=== PATIENT | female | born 1960 | race Caucasian/White ===

== ENCOUNTER → 2017-05-12 | Outpatient (REF) | payer BC | LOC: M LAB REF 13:18 | PROVIDERS: ATTEND Physician Assistant | DX: J02.9 Acute pharyngitis, unspecified (principal) ==

== ENCOUNTER → 2017-06-12 | Outpatient (CLI) | payer BC ==
[2017-06-12 13:01] LABS: BASO # 0.1 K/mm3 (0.0-0.2); BASO % 1.3 % (0.0-1.0); EOS # 0.2 K/mm3 (0.0-0.50); EOS % 2.3 % (0.0-3.0); LARGE UNSTAINED CELL # 0.2 K/mm3 (0.0-0.4); LARGE UNSTAINED CELL % 2.2 % (0.0-4.0); LYMPH # 2.8 K/mm3 (1.5-4.5); LYMPH % 34.7 % (24.0-44.0); MEAN CORPUSCULAR HEMOGLOBIN 31.5 pg (27.0-33.0); MEAN CORPUSCULAR HGB CONC 32.8 g/dl (32.0-36.5); MEAN CORPUSCULAR VOLUME 96.2 fl (80.0-96.0); MONO # 0.6 K/mm3 (0.0-0.8); MONO % 7.2 % (0.0-5.0); NEUTROPHILS % 52.2 % (36.0-66.0); PLATELET COUNT, AUTOMATED 446 k/mm3 (150-450); RED CELL DISTRIBUTION WIDTH 12.8 % (11.5-14.5); WHITE BLOOD COUNT 7.7 K/mm3 (4.0-10.0)
[2017-06-12 13:53] LABS: ALBUMIN 4.1 GM/DL (3.2-5.2); ALBUMIN/GLOBULIN RATIO 1.17 (1.00-1.93); ALKALINE PHOSPHATASE 44 U/L (45-117); ALT/SGPT 20 U/L (12-78); ANION GAP 11 MEQ/L (8-16); AST/SGOT 13 U/L (15-37); BILIRUBIN,TOTAL 0.3 MG/DL (0.2-1.0); BLOOD UREA NITROGEN 15 MG/DL (7-18); CALCIUM LEVEL 9.2 MG/DL (8.5-10.1); CARBON DIOXIDE LEVEL 24 MEQ/L (21-32); CHLORIDE LEVEL 108 MEQ/L (98-107); CHOLESTEROL LEVEL 273 MG/DL (<200); CREATININE FOR GFR 0.79 MG/DL (0.55-1.02); GLOMERULAR FILTRATION RATE > 60.0 (>51); GLUCOSE, FASTING 92 MG/DL (70-105); POTASSIUM SERUM 4.8 MEQ/L (3.5-5.1); SODIUM LEVEL 143 MEQ/L (136-145); TOTAL PROTEIN 7.6 GM/DL (6.4-8.2); TRIGLYCERIDES LEVEL 210 MG/DL (<150)
== END ==
LOC: M WUC 09:26
PROVIDERS: ATTEND Physician Assistant Medical
DX: Z13.0 Encounter for screening for diseases of the blood and blood-forming organs and certain disorders involving the immune mechanism (principal); Z13.29 Encounter for screening for other suspected endocrine disorder; Z13.220 Encounter for screening for lipoid disorders

== ENCOUNTER → 2017-07-23 | Outpatient (REF) | payer BC | LOC: M LAB REF 17:45 | PROVIDERS: ATTEND Family Medicine | DX: Z12.4 Encounter for screening for malignant neoplasm of cervix (principal) ==

== ENCOUNTER → 2017-09-01 | Outpatient (CLI) | payer BC ==
[2017-09-01 09:50] LABS: ALBUMIN 4.2 GM/DL (3.2-5.2); ALBUMIN/GLOBULIN RATIO 1.24 (1.00-1.93); ALKALINE PHOSPHATASE 48 U/L (45-117); ALT/SGPT 22 U/L (12-78); ANION GAP 9 MEQ/L (8-16); AST/SGOT 14 U/L (7-37); BILIRUBIN,TOTAL 0.3 MG/DL (0.2-1.0); BLOOD UREA NITROGEN 15 MG/DL (7-18); CALCIUM LEVEL 9.2 MG/DL (8.5-10.1); CARBON DIOXIDE LEVEL 28 MEQ/L (21-32); CHLORIDE LEVEL 104 MEQ/L (98-107); CHOLESTEROL LEVEL 230 MG/DL (<200); CREATININE FOR GFR 0.88 MG/DL (0.55-1.02); GLOMERULAR FILTRATION RATE > 60.0 (>51); GLUCOSE, FASTING 92 MG/DL (70-105); POTASSIUM SERUM 4.7 MEQ/L (3.5-5.1); SODIUM LEVEL 141 MEQ/L (136-145); TOTAL PROTEIN 7.6 GM/DL (6.4-8.2); TRIGLYCERIDES LEVEL 169 MG/DL (<150)
== END ==
LOC: M WUC 08:37
PROVIDERS: ATTEND Family Medicine
DX: E78.2 Mixed hyperlipidemia (principal)

== ENCOUNTER → 2017-11-11 | Outpatient (CLI) | payer BC | LOC: M ONCR 09:21 | DX: D05.11 Intraductal carcinoma in situ of right breast (principal) | CPT/HCPCS: G0463 ==

== ENCOUNTER 2017-11-19 13:56 | Outpatient (RCR) | payer BC | END 2017-12-03 | LOC: M ONCR 13:56 | DX: D05.11 Intraductal carcinoma in situ of right breast (principal) | CPT/HCPCS: 77300 ==

== ENCOUNTER → 2017-11-19 | Outpatient (CLI) | payer BC ==
[2017-11-19 14:55] LABS: HEMATOCRIT 40.8 % (36.0-47.0); HEMOGLOBIN 13.5 g/dl (12.0-16.0); MEAN CORPUSCULAR HGB CONC 33.1 g/dl (32.0-36.5); MEAN CORPUSCULAR VOLUME 93.8 fl (80.0-96.0); PLATELET COUNT, AUTOMATED 457 10^3/uL (150-450); RED BLOOD COUNT 4.35 10^6/uL (4.00-5.40); RED CELL DISTRIBUTION WIDTH 12.7 % (11.5-14.5); WHITE BLOOD COUNT 7.3 10^3/uL (4.0-10.0)
== END ==
LOC: M RAD 13:42
DX: C50.919 Malignant neoplasm of unspecified site of unspecified female breast (principal)
CPT/HCPCS: 85027

== ENCOUNTER → 2017-11-26 | Outpatient (CLI) | payer BC | LOC: M WHC 09:20 | DX: Z13.820 Encounter for screening for osteoporosis (principal); Z79.811 Long term (current) use of aromatase inhibitors; Z85.3 Personal history of malignant neoplasm of breast; M85.80 Other specified disorders of bone density and structure, unspecified site ==

== ENCOUNTER 2017-12-04 11:26 | Outpatient (RCR) | payer BC | END 2018-01-03 | LOC: M ONCR 11:26 | DX: D05.11 Intraductal carcinoma in situ of right breast (principal) | CPT/HCPCS: 77300 ==

== ENCOUNTER 2018-01-05 10:05 | Outpatient (RCR) | payer BC | END 2018-02-02 | LOC: M ONCR 10:05 | DX: D05.11 Intraductal carcinoma in situ of right breast (principal) | CPT/HCPCS: 77336 ==

== ENCOUNTER → 2018-01-24 | Outpatient (CLI) | payer BC ==
[2018-01-24 18:16] LABS: ALBUMIN 4.2 GM/DL (3.2-5.2); ALBUMIN/GLOBULIN RATIO 1.27 (1.00-1.93); ALKALINE PHOSPHATASE 46 U/L (45-117); ALT/SGPT 16 U/L (12-78); ANION GAP 9 MEQ/L (8-16); AST/SGOT 14 U/L (7-37); BILIRUBIN,TOTAL 0.3 MG/DL (0.2-1.0); BLOOD UREA NITROGEN 15 MG/DL (7-18); CARBON DIOXIDE LEVEL 26 MEQ/L (21-32); CHLORIDE LEVEL 108 MEQ/L (98-107); CHOLESTEROL LEVEL 234 MG/DL (<200); CHOLESTEROL RISK RATIO 4.254 (<5); CREATININE FOR GFR 0.87 MG/DL (0.55-1.30); GLOMERULAR FILTRATION RATE > 60.0 (>51); GLUCOSE, FASTING 85 MG/DL (70-100); HDL CHOLESTEROL 55 MG/DL (>40); LDL CHOLESTEROL 140.6 MG/DL (<100); NON-HDL-C 179 MG/DL; POTASSIUM SERUM 4.2 MEQ/L (3.5-5.1); SODIUM LEVEL 143 MEQ/L (136-145); TOTAL PROTEIN 7.5 GM/DL (6.4-8.2); TRIGLYCERIDES LEVEL 192 MG/DL (<150)
== END ==
LOC: M ADAMS 10:36
DX: E78.2 Mixed hyperlipidemia (principal); C50.919 Malignant neoplasm of unspecified site of unspecified female breast
CPT/HCPCS: 80053

== ENCOUNTER → 2018-02-18 | Outpatient (CLI) | payer BC | LOC: M ONCR 14:51 | DX: Z08 Encounter for follow-up examination after completed treatment for malignant neoplasm (principal); Z85.3 Personal history of malignant neoplasm of breast; Z92.3 Personal history of irradiation | CPT/HCPCS: G0463 ==

== ENCOUNTER → 2018-05-07 | Outpatient (CLI) | payer BC ==
[2018-05-07 12:15] LABS: ALBUMIN/GLOBULIN RATIO 1.18 (1.00-1.93); ALKALINE PHOSPHATASE 41 U/L (45-117); ALT/SGPT 24 U/L (12-78); ANION GAP 10 MEQ/L (8-16); AST/SGOT 20 U/L (7-37); BILIRUBIN,TOTAL 0.3 MG/DL (0.2-1.0); BLOOD UREA NITROGEN 15 MG/DL (7-18); CALCIUM LEVEL 9.2 MG/DL (8.5-10.1); CARBON DIOXIDE LEVEL 26 MEQ/L (21-32); CHLORIDE LEVEL 107 MEQ/L (98-107); CHOLESTEROL LEVEL 184 MG/DL (<200); CHOLESTEROL RISK RATIO 3.228 (<5); CREATININE FOR GFR 0.87 MG/DL (0.55-1.30); GLOMERULAR FILTRATION RATE > 60.0 (>51); GLUCOSE, FASTING 92 MG/DL (70-100); HDL CHOLESTEROL 57 MG/DL (>40); LDL CHOLESTEROL 98.4 MG/DL (<100); NON-HDL-C 127 MG/DL; POTASSIUM SERUM 4.9 MEQ/L (3.5-5.1); SODIUM LEVEL 143 MEQ/L (136-145); TOTAL PROTEIN 7.4 GM/DL (6.4-8.2); TRIGLYCERIDES LEVEL 143 MG/DL (<150)
== END ==
LOC: M WUC 08:20
DX: E78.2 Mixed hyperlipidemia (principal)
CPT/HCPCS: 80053

== ENCOUNTER → 2018-08-06 | Outpatient (CLI) | payer BC ==
[2018-08-06 11:01] LABS: BASO # 0.1 10^3/uL (0.0-0.2); BASO % 1.3 % (0.0-1.0); EOS # 0.2 10^3/uL (0.0-0.50); EOS % 1.9 % (0.0-3.0); HEMATOCRIT 38.8 % (36.0-47.0); HEMOGLOBIN 12.4 g/dl (12.0-15.5); IMMATURE GRANULOCYTE % 0.3 % (0-3.0); LYMPH # 1.9 10^3/uL (1.5-4.5); LYMPH % 21.7 % (24.0-44.0); MEAN CORPUSCULAR HEMOGLOBIN 31.2 pg (27.0-33.0); MEAN CORPUSCULAR VOLUME 97.7 fl (80.0-96.0); MONO # 0.7 10^3/uL (0.0-0.8); MONO % 8.5 % (0.0-5.0); NEUTROPHILS # 5.7 10^3/uL (1.8-7.7); NEUTROPHILS % 66.3 % (36.0-66.0); PLATELET COUNT, AUTOMATED 453 10^3/uL (150-450); RED BLOOD COUNT 3.97 10^6/uL (4.00-5.40); WHITE BLOOD COUNT 8.6 10^3/uL (4.0-10.0)
[2018-08-06 11:19] LABS: ALBUMIN 4.2 GM/DL (3.2-5.2); ALBUMIN/GLOBULIN RATIO 1.27 (1.00-1.93); ALKALINE PHOSPHATASE 42 U/L (45-117); ALT/SGPT 25 U/L (12-78); ANION GAP 5 MEQ/L (8-16); AST/SGOT 14 U/L (7-37); BILIRUBIN,TOTAL 0.3 MG/DL (0.2-1.0); BLOOD UREA NITROGEN 15 MG/DL (7-18); CARBON DIOXIDE LEVEL 29 MEQ/L (21-32); CHLORIDE LEVEL 107 MEQ/L (98-107); CHOLESTEROL LEVEL 188 MG/DL (<200); CHOLESTEROL RISK RATIO 2.937 (<5); CREATININE FOR GFR 0.71 MG/DL (0.55-1.30); FREE T4 0.88 NG/DL (0.76-1.46); GLOMERULAR FILTRATION RATE > 60.0 (>51); GLUCOSE, FASTING 98 MG/DL (70-100); HDL CHOLESTEROL 64 MG/DL (>40); LDL CHOLESTEROL 101 MG/DL (<100); NON-HDL-C 124 MG/DL; POTASSIUM SERUM 4.7 MEQ/L (3.5-5.1); SODIUM LEVEL 141 MEQ/L (136-145); TOTAL PROTEIN 7.5 GM/DL (6.4-8.2); TRIGLYCERIDES LEVEL 115 MG/DL (<150)
== END ==
LOC: M WUC 08:27
DX: E78.2 Mixed hyperlipidemia (principal); Z13.29 Encounter for screening for other suspected endocrine disorder; Z13.0 Encounter for screening for diseases of the blood and blood-forming organs and certain disorders involving the immune mechanism
CPT/HCPCS: 84443

== ENCOUNTER → 2018-08-19 | Outpatient (CLI) | payer BC | LOC: M ONCR 14:20 | DX: Z85.3 Personal history of malignant neoplasm of breast (principal) | CPT/HCPCS: G0463 ==

== ENCOUNTER → 2018-10-26 | Outpatient (REF) | payer BC ==
[~2018-10-26] MED LIST: SILV40CR EXT
== END ==
LOC: M LAB REF 10:36
PROVIDERS: ATTEND Physician Assistant
DX: J02.9 Acute pharyngitis, unspecified (principal)

== ENCOUNTER → 2019-11-19 | Outpatient (CLI) | payer BC ==
--- NOTE | 2019-11-23 13:28 | DEXA ---
AP SPINE L1 - L4 0.993 -1.6 -0.4 LT FEMUR TOTAL 0.852 -1.2 -0.3 LT NECK 0.772 -1.9 -0.7 RT FEMUR TOTAL 0.849 -1.3 -0.3 RT NECK 0.770 -1.9 -0.7 TOTAL BODY TOTAL OTHER COMMENTS: There is low bone density of the spine and hips. The density of the spine is increased 3.5% since 11/26/2017. The density of the left hip has decreased 3.8% since 11/26/2017. The density of the right hip has decreased 4.6% since 11/26/2017. FOLLOW-UP: Recommendation for the next bone density exam: 2 years. MARIBELL
== END ==
LOC: M WHC 08:50
PROVIDERS: ATTEND Internal Medicine
DX: C50.411 Malignant neoplasm of upper-outer quadrant of right female breast (principal); M85.80 Other specified disorders of bone density and structure, unspecified site

== ENCOUNTER → 2019-12-20 | Outpatient (REF) | payer BC | LOC: M LAB REF 12:35 | PROVIDERS: ATTEND Physician Assistant | DX: N39.0 Urinary tract infection, site not specified (principal) ==

== ENCOUNTER → 2020-01-11 | Outpatient (REF) | payer BC | LOC: M LAB REF 16:48 | PROVIDERS: ATTEND Family Medicine | DX: N39.0 Urinary tract infection, site not specified (principal) ==

== ENCOUNTER → 2020-03-14 | Outpatient (REF) | payer BC ==
[2020-03-14 16:46] LABS: AMORPHOUS SEDIMENT SMALL (NEGATIVE); APPEARANCE, URINE CLOUDY (CLEAR); BACTERIA, URINE AUTO 1+ (NEGATIVE); BILIRUBIN, URINE AUTO NEGATIVE (NEGATIVE); BLOOD, URINE BLOOD 2+ (NEGATIVE); COLOR, URINE YELLOW (YELLOW); GLUCOSE, URINE (UA) AUTO NEGATIVE (NEGATIVE); KETONE, URINE AUTO NEGATIVE (NEGATIVE); LEUKOCYTE ESTERASE, URINE AUTO 2+ (NEGATIVE); MUCUS, URINE SMALL (NEGATIVE); NITRITE, URINE AUTO NEGATIVE (NEGATIVE); PROTEIN, URINE AUTO 2+ mg/dL (NEGATIVE); RBC, URINE AUTO 72 /HPF (0-3); SPECIFIC GRAVITY URINE AUTO 1.015 (1.002-1.035); SQUAMOUS EPITHELIAL CELL UR AU 1 /HPF (0-6); UROBILINOGEN, URINE AUTO 0.2 mg/dL (0.0-2.0); WBC, URINE AUTO TNTC /HPF (0-3)
== END ==
LOC: M LAB REF 15:48
PROVIDERS: ATTEND Obstetrics & Gynecology
DX: D39.0 Neoplasm of uncertain behavior of uterus (principal)

== ENCOUNTER → 2020-03-27 | Outpatient (CLI) | payer BC ==
[~2020-03-27] MED LIST changes: +ANAS1TAB2 PO; +CALC1TAB29 PO; +MULTCAP PO; +ONDA8TAB10 PO; +PRAV40TA2 PO; +PROC10TA4 PO; +ZOFR8TAB24 PO
== END ==
LOC: M LABSMTC 11:38
PROVIDERS: ATTEND Anesthesiology
DX: Z03.818 Encounter for observation for suspected exposure to other biological agents ruled out (principal); Z11.59 Encounter for screening for other viral diseases
CPT/HCPCS: C9803; U0003

== ENCOUNTER 2020-03-30 14:27 | Day surgery (SDC) | payer BC ==
[~2020-03-30] VITALS: Ht 154.9 cm; Wt 65.3 kg
[~2020-03-30 14:27] MED LIST changes: +LIDOCAINE 2% 100MG/5ML SDV (FOR ANES.) As Ordered ONE; +LR 1,000 ML IV ONE; +MIDAZOLAM INJ 2MG/2ML VIAL (J2250 PER 1MG) As Ordered ONE; -ONDA8TAB10 PO; -PROC10TA4 PO; -ZOFR8TAB24 PO; +fentaNYL 100 MCG/2 ML INJECTION (J3010) As Ordered ONE; +propofoL 200 MG/20 ML VIAL As Ordered ONE
[2020-03-30 15:16] LABS: HEMATOCRIT 35.7 % (36.0-47.0); HEMOGLOBIN 11.7 g/dl (12.0-15.5); MEAN CORPUSCULAR HEMOGLOBIN 30.8 pg (27.0-33.0); MEAN CORPUSCULAR HGB CONC 32.8 g/dl (32.0-36.5); MEAN CORPUSCULAR VOLUME 93.9 fl (80.0-96.0); PLATELET COUNT, AUTOMATED 565 10^3/uL (150-450); WHITE BLOOD COUNT 21.5 10^3/uL (4.0-10.0)
[2020-03-30] MEDS ORDERED: CHLOROPROCAINE PRES. FREE 3% 20ML VIAL As Ordered ONE (15:19)
[2020-03-30 15:35] LABS: CALCIUM LEVEL 9.5 MG/DL (8.8-10.2); CREATININE FOR GFR 1.23 MG/DL (0.55-1.30); GLOMERULAR FILTRATION RATE 47.3 (>45); POTASSIUM SERUM 4.2 MEQ/L (3.5-5.1)
[2020-03-30] MEDS ORDERED: PHENYLephrine HCL 500 MCG/5 ML (100MCG/ML) SYRINGE (J2370) As Ordered ONE (16:58)
[2020-03-30] MEDS ORDERED: ONDANSETRON 4MG/2ML VIAL As Ordered ONE (16:58)
[2020-03-30] MEDS ORDERED: dexameTHASONE 4 MG/ML 1ML VIAL (J1100 PER 1MG) As Ordered ONE (16:59)
[2020-03-30] MEDS ORDERED: KETOROLAC 60MG 2ML VIAL As Ordered ONE (16:59)
[2020-03-30] MEDS ORDERED: METOCLOPRAMIDE INJ 10MG/2ML VIAL (J2765 PER 1) IV PRN (18:00)
[2020-03-30] MEDS ORDERED: MEPERIDINE INJ 25 MG/ML VIAL (J2175) IV PRN (18:00)
[2020-03-30] MEDS ORDERED: PERCOCET 5MG/325MG TAB PO PRN (18:00)
[2020-03-30] MEDS ORDERED: ONDANSETRON 4MG/2ML VIAL IV PRN (18:00)
[2020-03-30] MEDS ORDERED: fentaNYL 100 MCG/2 ML INJECTION (J3010) IV PRN (18:00)
[2020-03-30] MEDS ORDERED: LR 1,000 ML IV SCH ×2 (18:00)
[2020-03-30 18:32] VITALS: BP 154/67
--- NOTE | 2020-03-31 17:19 | ECGEPIP ---
[facility] Test Date: 2020-03-30 Pat Name: CAROL BUNCH Department: Room: - Gender: Female Test Preparer: CARMELA : 1960 Requested By: JHONNY Abbasi Order Number: [id number] Reading MD: Lizandro Cabrera Measurements Intervals [place] Rate: 80 P: 38 ME: 120 QRS: 20 QRSD: 93 T: 39 QT: 379 QTc: 438 Interpretive Statements SINUS RHYTHM No prior tracing in the system Electronically Signed on 03-31-2020 17:19:35 EDT by Lizandro Cabrera
--- NOTE | 2020-04-04 22:08 | RO ---
DATE OF PROCEDURE: 03/30/2020 PREOPERATIVE DIAGNOSIS: Postmenopausal bleeding with abnormal ultrasound of the endometrium, as well as abnormal sono of the bladder, as well as palpable pelvic mass. POSTOPERATIVE DIAGNOSIS: Postmenopausal bleeding with abnormal ultrasound of the endometrium, as well as abnormal sono of the bladder, as well as palpable pelvic mass. The patient has a bladder tumor. She also had an endometrial polyp, which was completely resected and sent for pathology, but certainly not the most concerning finding today. PROCEDURE: Dilation and curettage (D and C), hysteroscopy, MyoSure resection of polyp and cystourethroscopy with biopsy of fungating lesion of the partha-trigone. I could not see the trigone well because of the obstructive large bladder neck tumor. SURGEON: Dr. Donna Garcia WEATHERIZATION DIRECTOR: ANESTHESIA: General endotracheal anesthesia. SPECIMENS: The endometrial polyp and the endometrial resection with biopsy of the bladder lesion as well. DESCRIPTION OF PROCEDURE: Ashley was brought to the operating room where sufficient general endotracheal anesthesia was induced, and she was prepped, draped and positioned in the usual sterile fashion. She has a palpable pelvic mass as already noted in the office notes. Under anesthesia, the anterior bladder wall does feel slightly mobile separate from it, so does not feel quite as close, but it is still quite close and very readily palpable and feels separate from the uterus as was already noted in the office. The cervix was grasped with a single-tooth tenaculum, carefully dilated. The hysteroscope placed and a right posterior fundal polypoid lesion was noted. This was resected with MyoSure and some endometrial sampling done, but she really does not have overgrowth of the endometrium, just that lesion. She has normal tubal ostia, normal contour, and after curettage, the hysteroscopic portion of the procedure was ended. And, of course, the resected tissue will be sent for pathologic evaluation and was, of course, sent separate from the bladder sample. After completing the hysteroscopic portion of the procedure, we set up for the cystoscopy, placed the cystoscope and with the 70-degree, could see a bladder neck tumor sort of eliminating decent visualization of the trigone region, as the fungating tumor there did not appear overly vascular and definitely appeared friable, so we were able to just use the biopsy forceps to simply grasp samples. I certainly did not want to do any undue damage to the trigone, and it is really distorting as a lesion, but I did want enough for diagnosis, so we took several samples. We did not have any trouble with particular bleeding. The first few did appear a little necrotic, so we kept getting some more sample until we felt we had enough for diagnostic purposes and then we ended the procedure. Again, I could not really see normal anatomy of the trigone because she has this distorting abnormal tumor, but the pathology will be sent. She will be referred over to urology. The procedure was then ended. The bladder emptied. Estimated blood loss was only about 3 mL. Fluid replacement was crystalloid. Complications: None. Condition and Disposition: Ashley tolerated the procedure well and was recovering in the recovery room in good condition.
== END 2020-03-30 19:00 | disposition home or self-care (01) ==
LOC: M SDC 14:27
PROVIDERS: ATTEND Obstetrics & Gynecology
DX: C67.0 Malignant neoplasm of trigone of bladder (principal); R19.00 Intra-abdominal and pelvic swelling, mass and lump, unspecified site; N84.0 Polyp of corpus uteri; C50.919 Malignant neoplasm of unspecified site of unspecified female breast; Z79.899 Other long term (current) drug therapy
CPT/HCPCS: 36415; 52204; 58558; 80048; 85027; 88305; 93005; J1100; J1885; J2250; J2370; J2405; J3010

== ENCOUNTER → 2020-06-23 | Outpatient (CLI) | payer BC ==
[~2020-06-23] MED LIST changes: -LIDOCAINE 2% 100MG/5ML SDV (FOR ANES.) As Ordered ONE; -LR 1,000 ML IV ONE; -MIDAZOLAM INJ 2MG/2ML VIAL (J2250 PER 1MG) As Ordered ONE; +ONDA8TAB10 PO; +PROC10TA4 PO; +ZOFR8TAB24 PO; -fentaNYL 100 MCG/2 ML INJECTION (J3010) As Ordered ONE; -propofoL 200 MG/20 ML VIAL As Ordered ONE
--- NOTE | 2020-07-05 09:08 | MEDONCTEEN ---
Date/Time of Encounter Date of Encounter: Jul 05, 2020 Time of Encounter: 08:00 Telephone Encounter Briefly patient has T4N3M1 urothelial cancer, managed initially at [facility] and [facility] in [place] (Drs. Crain, and Loyda, respectively). She was referred to see me for consideration of chemoradiation after having been deemed inoperable due to extent of abdominal adenopathy. Dr. Ryan saw her while I was away and astutely ordered a PET-CT to complete staging, which had not been done in [place]. This study from 07/03/20 at [facility] shows a Virchow's node (L suprac lavicular) which is avid. This makes her M1. Thankfully there are no visceral or bony metastatic lesions that I can see. I cannot safely encompass all sites of disease and treat to a definitive RT dose. Thus, I think she would be best served by systemic therapy upfront reserving radiation for consolidation or palliation contingent upon response. I communicated all of this to the patient. She would like to transfer her medical oncology follow up here as well and so I have referred her. She currently has no symptoms attributable to this cancer, and is urinating well without hematuria or pain. She expressed great frustration with the delays in her care. She is also transferring urologic care to Dr. Carrera of [facility] who will see her at [facility] when he is there. I explained that I do not need to schedule formal follow up with her now, but that I would be interested in seeing her back after systemic therapy of some duration and restaging scans to evaluate whether there is a role for consolidative RT. I will leave this to medical oncology to decide. Certainly if she develops symptoms attributable to the tumor in the bladder palliative RT would be an immediate and helpful option. Plan: Refer to medical oncology at [facility] Cody MD Jul 05, 2020 09:08
--- NOTE | 2020-07-07 11:17 | RADONC ---
DATE OF SERVICE: 06/23/2020 DIAGNOSIS: Bladder cancer. Stage (in progress). At least Stage CANDIDO, N4a, N3, M1a. ECOG Performance Status: 0. CONSULTATION NOTE: Ms. 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 She did well postoperatively but more recently was thought to have a urinary tract infection. She was seen by her primary care physician, Dr. Remy who subsequently referred her to her [facility] physician, Dr. Kiley Garcia. On [facility] examination Dr. Garcia found a mass which she believed was center over her urinary bladder. The patient was subsequently referred to [facility] and was seen by Dr. Jong Crain. A CT of the abdomen and pelvis was undertaken on 04/27/20 and revealed a 47 mm x 27 mm mass arising from the left posterior lateral aspect of the bladder completing obstructing the left UVJ. There was not a clear plane of fat between the bladder mass and the uterus posterior to it. It was thought to be direct invasion. There was also noted to be moderate retroperitoneal lymphadenopathy with multiple enlarged paraortic lymph nodes as well as left common iliac lymph nodes. A 14 mm left periaortic lymph node was noted. There was a distal left periaortic node as well. On 05/02/20, the patient underwent cystoscopy and transurethral resection of her bladder mass. Pathology revealed invasive high-grade urothelial carcinoma with marked necrosis. There was muscle invasion noted. There was also invasive high- grade urothelial carcinoma involving the left ureteral orifice. The patient was referred to us for further workup as well as initiation of external beam radiation therapy with IMRT/IGRT in order to achieve local control. Coordination with Medical Oncology will be undertaken. PAST MEDICAL HISTORY: Patients past medical history is positive for her right sided breast cancer as noted above. In addition, the patient has a history of hyperlipidemia. ALLERGIES: The patient has no known drug allergies. FAMILY HISTORY: The patients family history is positive for a mother with cervical cancer. SOCIAL HISTORY: The patient has smoked one pack of cigarettes per week. She smoked for approximately 40 years. She does not use abuse alcohol. REVIEW OF SYSTEMS: The patients review of systems is largely noncontributory except for some urinary discomfort. She denies nausea, vomiting, fevers, chills, night sweats, diplopia, headaches, anxiety, depression, anorexia, weight loss, visual disturbance, chest pain, urinary or bowel, bone pain, or neurological problems. PHYSICAL EXAMINATION: GENERAL: The patient is a well-developed, well-nourished white female in no acute distress. HEENT: Normocephalic, atraumatic. Extraocular movements are intact. LYMPH: There is no palpable cervical, supraclavicular, infraclavicular, axillary or inguinal lymphadenopathy present. LUNGS: Clear to auscultation and percussion. HEART: Regular rate and rhythm. ABDOMEN: Benign with no hepatosplenomegaly, masses or tenderness. SKELETAL: No tenderness to pressure or percussion of the bony skeleton. ASSESSMENT: I have ordered a PET CT scan for further staging of this patient. At this time, I do not have the actual images from her CT scans done at [facility] and I have put in an order to obtain a copy of those scans so I can better evaluate the extent of her disease. Clearly, if the lymph nodes are involved above the level of the common iliacs, then this would be a Stage CANDIDO disease. Irregardless, the goal should be to obtain local control in this patient. If indeed the disease is limited to below the common iliacs, then the treatment of course is potentially curable. I am in agreement with her previous radiation oncologist and have discussed this case with her future treating radiation oncologist, Dr. Antony Ardon. I agree that IMRT radiation will be necessary in order to limit the amount of radiation to her small bowel. I have discussed with the patient in detail the potential benefits as well as possible acute and chronic sequelae of external beam radiation therapy. We discussed logistics of treatment planning, simulation and subsequent fractionated daily radiation treatments. Once again, I have scheduled the patient for a PET CT scan for final staging and we are scheduling her for CT simulation as well. I will of course defer the further details of her treatment plans to her treating physician, Dr. Ardon when he returns next week. [facility]
== END ==
LOC: M ONCR 08:59
PROVIDERS: ATTEND Radiology Radiation Oncology
DX: C67.9 Malignant neoplasm of bladder, unspecified (principal); Z92.3 Personal history of irradiation

== ENCOUNTER → 2020-07-03 | Outpatient (CLI) | payer BC ==
--- NOTE | 2020-07-12 13:28 | REP ---
PET CT HISTORY: Staging urothelial carcinoma. COMPARISON: CT study abdomen and pelvis 04/27/2020. There is also a history of breast carcinoma on the right 2018. TECHNIQUE: 49 minutes following the intravenous injection of an 8.21 mCi dose of F18 fluorodeoxyglucose, three-dimensional PET CT imaging is obtained from the skull base to the proximal thighs. PET CT FINDINGS: There is a hypermetabolic left supraclavicular lymph node measuring 14 x 11 mm at the level of the left thyroid lobe. Maximum standard uptake value is quite high measuring 22.51. There is no mediastinal or hilar hypermetabolic uptake in the chest. No abnormal pulmonary parenchymal hypermetabolic uptake is seen. No pulmonary nodule is appreciated. Head and neck soft tissues are otherwise unremarkable. No abnormal hypermetabolic uptake is seen in the liver or spleen. Hydronephrosis is again seen in the left kidney. There is a cortical cyst in the left kidney. There is hypermetabolic retroperitoneal adenopathy. There is a retrocrural lymph node with mildly hypermetabolic uptake, maximum standard uptake value 5.45. This is on the right side and is less than 1 cm in diameter. There is some slight motion generated misregistration. The upper abdominal predominantly left periaortic hypermetabolic adenopathy includes multiple lymph nodes. Maximum standard uptake value ranges to 11.3. There are one or two small left internal iliac lymph nodes, which are hypermetabolic as well, maximum standard uptake value up to 6.8. There is one internal iliac node on the left with a maximum standard uptake value of 22.2. No right pelvic adenopathy is appreciated. No inguinal or obturator adenopathy is see. The left posterior wall bladder mass cannot be evaluated accurately due to physiologic uptake in the urinary bladder. No abnormal skeletal uptake is seen. IMPRESSION: Hypermetabolic shin uptake is seen in a left supraclavicular lymph node, as well as in right retrocrural, left and right periaortic, and left internal iliac shin distributions. No other abnormal hypermetabolic uptake. There is no abnormal axillary or internal mammary shin uptake. MTDD
== END ==
LOC: M PLARAD 15:21
PROVIDERS: ATTEND Radiology Radiation Oncology
DX: C67.6 Malignant neoplasm of ureteric orifice (principal)
CPT/HCPCS: 78815; A9552

== ENCOUNTER → 2020-08-22 | Outpatient (CLI) | payer BC ==
[~2020-08-22] MED LIST changes: +LIDOCAINE 1% MDV 20ML VIAL As Ordered ONE; +SODIUM BICARBONATE 8.4% INJ 50MEQ 50 ML VIAL As Ordered ONE
[2020-08-22 12:10] VITALS: BP 142/71
--- NOTE | 2020-08-23 10:04 | REP ---
INDICATION: LYMPH NODE BX LEFT SUPRACLAVICULAR. COMPARISON: PET-CT 07/03/2020. TECHNIQUE: Real-time sonographic evaluation of left supraclavicular region performed. FINDINGS: The suspicious lymph node seen in the left supraclavicular region on the prior PET-CT exam could not be visualized sonographically. IMPRESSION: Ultrasound-guided biopsy of the left supraclavicular lymph node could not be performed as the lymph node is not visible by ultrasound. The biopsy will need to be performed with CT guidance. <Electronically signed by Jules Harper > 08/23/20 [id number]
== END ==
LOC: M IRPRO 11:56
PROVIDERS: ATTEND Internal Medicine Medical Oncology
DX: R59.0 Localized enlarged lymph nodes (principal); C34.90 Malignant neoplasm of unspecified part of unspecified bronchus or lung; Z53.8 Procedure and treatment not carried out for other reasons

== ENCOUNTER → 2020-08-29 | Outpatient (CLI) | payer BC ==
[~2020-08-29] MED LIST changes: +AMOX875T PO
[2020-08-29 13:32] VITALS: BP 126/62
--- NOTE | 2020-08-29 18:28 | REP ---
INDICATION: LT SUPRACLAVICULAR LYMPHNODE BX. COMPARISON: None. TECHNIQUE: The procedure is performed by Norma Heredia [facility], under the direct supervision of Dr. Harper. The risks and benefits of the procedure were explained to the patient and informed consent was obtained both orally and written. Directly prior to the start of the procedure, a formal timeout was done in the exam room. The left sided supraclavicular lymph node was localized using CT guidance. Skin was prepped and draped in the usual sterile fashion. Four ml of buffered lidocaine was used as a local anesthetic. FINDINGS: Using CT guidance a 19/20 gauge coaxial needle biopsy system was inserted and advanced into the lymph node. Eight core biopsy samples were obtained. Four specimens were sent to our lab here, and the remaining 4 were sent out in RPMI solution, for further testing. CT images obtained directly after the biopsy show no evidence of pneumothorax, or hematoma. After the appropriate amount of monitored convalescence the patient was discharged from the department. IMPRESSION: CT guided supraclavicular lymph node biopsy. <Electronically signed by Norma Heredia > 08/29/20 [id number] <Electronically signed by Jules Harper > 08/29/20 [id number]
== END ==
LOC: M IRPRO 11:59
PROVIDERS: ATTEND Internal Medicine Medical Oncology
DX: D05.11 Intraductal carcinoma in situ of right breast (principal); C00-D49 Neoplasms

== ENCOUNTER → 2020-09-12 | Outpatient (CLI) | payer BC ==
[~2020-09-12] MED LIST changes: +GASTROGRAFIN SOLUTION 30ML (Q9963) As Ordered ONE; -LIDOCAINE 1% MDV 20ML VIAL As Ordered ONE; -SODIUM BICARBONATE 8.4% INJ 50MEQ 50 ML VIAL As Ordered ONE; +VITMTA PO
--- NOTE | 2020-09-12 17:21 | REP ---
INDICATION: BLADDER CA. COMPARISON: Comparison is made with recent PET-CT study from July 03, 2020.. There is also a comparison chest CT study from radiation therapy planning study November 19, 2017. TECHNIQUE: Helical scanning is acquired 3 mm axial images are generated. Coronal and sagittal MPR images are generated and reviewed. FINDINGS: No pulmonary nodule or infiltrate is seen. No lung mass lesion is observed. There is minimal linear fibrosis in the right middle lobe and lingula at the bases. No pleural or pericardial effusion is seen. The small 14 mm left supraclavicular lymph node at the lateral aspect of the left thyroid gland has decreased in size and is 6 mm in greatest diameter. No supraclavicular adenopathy is visible today. No axillary adenopathy or mediastinal adenopathy is seen. No bony destructive lesion. Some vascular calcification is observed. IMPRESSION: The left supraclavicular lymph node which was observed to be hypermetabolic on July 03, 2020 PET/CT appears to have decreased in size to 6 mm. No other suspicious abnormality is seen on chest CT. <Electronically signed by Arnold Mora > 09/12/20 [id number]
--- NOTE | 2020-09-12 17:28 | REP ---
INDICATION: BLADDER CA COMPARISON: Comparison is made with imaging from PET-CT study dated July 03, [address] abdomen and pelvis images from April 27, 2020.. TECHNIQUE: Helical scanning is acquired in 4 mm axial images were reformatted. Coronal and sagittal MPR images were generated and reviewed. FINDINGS: There are multiple small hepatic cysts again noted scattered in the liver. The largest of these is in the left lobe measuring 18 mm in diameter. These are unchanged from comparison CT study April 27, 2020. No abnormality is noted in the gallbladder or pancreas. Spleen is unremarkable. Normal adrenal glands are seen. The previously noted left-sided hydronephrosis has resolved. There is a cyst in lower pole left kidney posteriorly which is unchanged. There is no evidence of retrocrural lymphadenopathy today. The previously noted left periaortic and right aortocaval lymph nodes appear a little less prominent in size. The largest of these is a left periaortic node measuring 6.6 mm in short axis dimension, previously 10 mm. No new adenopathy is appreciated. A 2nd left periaortic lymph node has decreased from 10-4 mm in short axis dimension. Similar improvement in left iliac lymph nodes is seen. These are somewhat difficult to evaluate in the absence of intravenous contrast. No new adenopathy is appreciated. No free fluid is noted. Uterus is tipped posteriorly into the left as before. Small and large intestinal bowel loops are unremarkable. Bone window settings show no bony destructive lesion. IMPRESSION: Improvement noted in the retroperitoneal and left iliac lymphadenopathy seen on the prior PET-CT. Previously noted left-sided hydronephrosis has resolved. <Electronically signed by Arnold Mora > 09/12/20 [id number]
== END ==
LOC: M RAD 12:05
PROVIDERS: ATTEND Internal Medicine Medical Oncology
DX: C67.9 Malignant neoplasm of bladder, unspecified (principal); J84.10 Pulmonary fibrosis, unspecified
CPT/HCPCS: 71250; 74176; Q9963

== ENCOUNTER → 2020-10-09 | Outpatient (CLI) | payer BC ==
[~2020-10-09] MED LIST changes: -GASTROGRAFIN SOLUTION 30ML (Q9963) As Ordered ONE; +LIDOCAINE 1% MDV 20ML VIAL As Ordered ONE; +MIDAZOLAM INJ 2MG/2ML VIAL (J2250 PER 1MG) As Ordered ONE; +POTA540T PO; +ceFAZolin 1GM VIAL (J0690 PER 500MG) As Ordered ONE; +diphenhydrAMINE 50MG/ML VIAL (J1200) As Ordered ONE; +fentaNYL 100 MCG/2 ML INJECTION (J3010) As Ordered ONE
[2020-10-09 17:51] VITALS: BP 156/66
--- NOTE | 2020-10-11 13:46 | IRHP ---
[facility] IR Pre-Procedure H & P General Date of Service: Oct 09, 2020 Procedure: Same Day Surgery Interval History and Physical I have seen the patient and reviewed last H & P performed within 30 days. There is no significant interval change. History of Present Illness Chief Complaint The patient is a 60-year-old female admitted with a reason for visit of Bladder Ca. PRE-PROCEDURE DIAGNOSIS:bladder ca HEART: normal rate. LUNGS: normal breathing at rest. ASA Classification ASA Classification: III-Severe systemic dis. Mallampati Score: II NPO: Yes Problems with prior sedation: No Obstructive Sleep Apnea: No Plan moderate sedation Allergies Coded Allergies: No Known Allergies (Unverified , 03/28/20) Home Medications Scheduled Calcium Carbonate/Vitamin D3 (Calcium 600-Vit D3 800 Tablet), 1 TAB PO DAILY, (Reported) Multivitamins (Thera M Plus Tablet), 0.5 TAB PO QAM, (Reported) Pravastatin Sodium (Pravastatin Sodium), 40 MG PO DAILY, (Reported) Scheduled PRN Ondansetron HCl (Ondansetron HCl), 8 MG PO BIDP PRN for NAUSEA OR VOMITING Prochlorperazine Maleate (Prochlorperazine Maleate), 10 MG PO Q6H PRN for NAUSEA OR VOMITING Miscellaneous Medications Potassium Citrate (Potassium Citrate), 99 MG PO, (Reported) Discontinued Medications Multivitamin (Multivitamins), 1 CAP PO DAILY, (Reported) Discontinued Reason: Pt states not taking VS, I&O, 24H, Fishbone Vital Signs/I&O Vital Signs Date Time Temp Pulse Resp B/P (MAP) Pulse Ox O2 Delivery O2 Flow Rate FiO2 10/09/20 17:51 74 18 98 Room Air 10/09/20 15:55 2 10/09/20 14:05 98.5 MAHESH KATHLEEN MD Oct 11, 2020 13:46
--- NOTE | 2020-10-11 13:48 | POST-OPPD ---
Postoperative Procedure Note Date Of Procedure: Oct 09, 2020 Time Of Procedure: 16:00 IR ultrasound and fluoroscopy guided port placement IR Ultrasound of the neck. IR Moderate sedation. Clinical indication: Bladder cancer. Right breast surgery and radiation. Physician: Dr. Aguilar. Procedure: The patient was advised of the benefits, risks, and alternatives of the procedure and informed consent was obtained. A time-out was performed with verification of the patient's name, MRN, site of procedure and type of procedure to be performed. The patient was positioned in the supine position on the angiographic table. The site was prepped and draped in the usual sterile fashion. Moderate sedation was performed by the physician including the presence of an independent trained RN who assisted and monitored the patient's level of consciousness and physiologic status. Following the administration of fentanyl and Versed , the physician spent 45 minutes of continuous face to face time with the patient. Ultrasound of the neck reveals a patent and compressible left internal jugular vein. A cemetery vault installer radiograph reveals no gross abnormality. The neck and anterior chest wall were anesthetized with lidocaine. The left internal jugular vein was accessed using a microintroducer needle under ultrasound guidance, via a lateral approach. An 018 wire was advanced into the superior vena cava, the needle was removed and a microsheath was placed. An Amplatz wire was then passed into the inferior vena cava. An incision at the internal jugular vein access site and anterior chest wall were made using a scalpel. An incision was made at the anterior chest wall. A small pocket was created using a combination of blunt and sharp dissection. A tunneling device was then used to pass the catheter from the pocket to the neck puncture site. An 8- Ethiopian Angio Green A Smart power port was then positioned in the pocket. The catheter was then measured and cut. The introducer sheath was exchanged for a peel-away sheath. The catheter was passed through the peel-away sheath into the internal jugular vein and the peel-away sheath was removed. The port tip was positioned at the cavoatrial junction. The port was then accessed with a Cohn needle. The port flushes and aspirates well. The puncture site in the neck was closed. The chest wall incision was then closed with 2-0 Vicryl and 4-0 Monocryl. Glue and Steri- Strips were applied. A sterile dressing was then applied. The patient tolerated the procedure well and was returned to the PRU in stable condition. Estimated blood loss: <5 ml. Complications: None. Conclusion: 1. Successful placement of an 8-Ethiopian Angio dynamics Smart power port via the Left internal jugular vein. The port is ready for immediate use. 2. Patient to follow up in IR clinic in 2 weeks. Thank you for this referral. MAHESH AGUILAR MD Oct 11, 2020 13:48
== END ==
LOC: M IRPRO 13:42
PROVIDERS: ATTEND Radiology Diagnostic Radiology
DX: C67.9 Malignant neoplasm of bladder, unspecified (principal); Z92.3 Personal history of irradiation
CPT/HCPCS: 36561; 99152; 99153; C1769; C1788; C1894; J0690; J1200; J1642; J1644; J2250; J3010

== ENCOUNTER → 2020-10-24 | Outpatient (POV) | payer BC ==
[~2020-10-24] MED LIST changes: -LIDOCAINE 1% MDV 20ML VIAL As Ordered ONE; -MIDAZOLAM INJ 2MG/2ML VIAL (J2250 PER 1MG) As Ordered ONE; -ceFAZolin 1GM VIAL (J0690 PER 500MG) As Ordered ONE; -diphenhydrAMINE 50MG/ML VIAL (J1200) As Ordered ONE; -fentaNYL 100 MCG/2 ML INJECTION (J3010) As Ordered ONE
--- NOTE | 2020-10-26 12:33 | IRPN ---
[facility] IR Progress Note IR Progress Note DATE: Oct 24, 2020 Patient agreed to this telephone consultation. I spent 5 minutes in consultation with the patient. FOLLOW-UP: Status post port placement. Patient states she is doing well. No fevers, chills, pain at site or discharge. Port was used without issues. ON EXAMINATION: No video on patient side. IMPRESSION: Doing well status post port placement. No further follow-up scheduled unless initiated by patient and/or referring provider. Thank you for this referral Allergies Coded Allergies: No Known Allergies (Unverified , 03/28/20) MAHESH KATHLEEN MD Oct 26, 2020 12:33
== END ==
LOC: M TMIRPOV 09:00
PROVIDERS: ATTEND Radiology Diagnostic Radiology
DX: Z45.2 Encounter for adjustment and management of vascular access device (principal)

== ENCOUNTER → 2020-12-04 | Outpatient (CLI) | payer BC ==
[~2020-12-04] MED LIST changes: +GASTROGRAFIN SOLUTION 30ML (Q9963) As Ordered ONE; +IBUP80TA PO
--- NOTE | 2020-12-04 13:23 | REPVR ---
PROCEDURE INFORMATION: Exam: CT Neck Without Contrast Exam date and time: 12/04/2020 12:59 PM Age: 60 years old Clinical indication: Condition or disease; Cancer; Other: Bladder; Additional info: Bladder cancer TECHNIQUE: Imaging protocol: Computed tomography images of the neck without contrast. Radiation optimization: All CT scans at this facility use at least one of these dose optimization techniques: automated exposure control; mA and/or kV adjustment per patient size (includes targeted exams where dose is matched to clinical indication); or iterative reconstruction. COMPARISON: PT PET/CT Skull/mid thigh 07/03/2020 4:39 PM FINDINGS: Limitations: Sensitivity to organ or shin pathology is limited without vascular contrast. Nasopharynx: Unremarkable. Oropharynx: Unremarkable. No significant tonsillar enlargement. Hypopharynx: Unremarkable. Larynx: Unremarkable. Normal epiglottis. Retropharyngeal space: Unremarkable. Submandibular/Parotid glands: Normal. Glands are normal in size. Thyroid: The thyroid gland is normal. Lymph nodes: There are numerous prominent but non-pathologic lymph nodes in the neck. There are no nodes of pathologic dimensions. Trachea: Visualized trachea is unremarkable. Lungs: The visualized portions of the lung apices are normal. Bones/joints: The spine demonstrates moderate degenerative changes at multiple levels. There is moderate bilateral foraminal stenosis at C5-C6 and C6-C7. Soft tissues: Unremarkable. No significant soft tissue swelling. Other findings: A left infusion port is present. IMPRESSION: 1. Sensitivity to organ or shin pathology is limited without vascular contrast. 2. The spine demonstrates moderate degenerative changes at multiple levels. There is moderate bilateral foraminal stenosis at C5-C6 and C6-C7. Electronically signed by: Ru Padilla On 12/04/2020 13:24:02 PM
--- NOTE | 2020-12-04 14:13 | REP ---
INDICATION: BLADDER CANCER COMPARISON: 09/12/2020 TECHNIQUE: Axial noncontrast images from the thoracic inlet to the upper abdomen with coronal and sagittal reformations. This CT examination was performed using the following dose reduction techniques: Automated exposure control, adjustment of mA and/or kv according to the patient's size, and use of iterative reconstruction technique. FINDINGS: Mild chronic appearing age-related changes are appreciated. No consolidation, suspicious nodule, or mass lesion. No pleural effusion. No pneumothorax. Tracheobronchial tree is patent. No obvious adenopathy. Mediastinum demonstrates stable atherosclerotic changes to the thoracic aorta and coronary arteries without aortic aneurysm or cardiomegaly. No pericardial effusion. Cztayz-M-Pegu identified with tip in the SVC. Surrounding musculoskeletal structures without acute abnormality. Upper abdomen demonstrates hepatic hypodensities which are nonspecific by noncontrast evaluation and measure up to 1.1 cm, but appear relatively stable compared to 04/27/2020. IMPRESSION: 1. No obvious acute mediastinal or pleuroparenchymal process appreciated. <Electronically signed by Gabe Ortiz > 12/04/20 [id number]
--- NOTE | 2020-12-04 14:18 | REP ---
INDICATION: BLADDER CANCER COMPARISON: 09/12/2020, 04/27/2020 TECHNIQUE: Axial noncontrast images from the lung bases to the pubic symphysis with coronal and sagittal reformations. This CT examination was performed using the following dose reduction techniques: Automated exposure control, adjustment of mA and/or kv according to the patient's size, and use of iterative reconstruction technique. FINDINGS: Lung bases are clear. Visualized heart and pericardium normal. Liver demonstrates scattered hypodensities measuring up to approximately 1.5 cm similar to prior examinations and likely representing cysts although incompletely evaluated by noncontrast evaluation. Spleen, pancreas, gallbladder, bilateral adrenal glands and right kidney are normal by noncontrast evaluation. Left kidney includes stable 3 cm lower pole cyst. Previously noted left hydronephrosis has resolved. The enteric system is unremarkable and without obstruction or acute inflammatory process. Normal terminal ileum and appendix identified in the right lower quadrant. Pelvis demonstrates normal bladder and age-appropriate uterus/adnexa. No ascites. No free air. No adenopathy. No focal inflammatory stranding. Atherosclerotic changes to the aorta and vasculature noted without aneurysm. Musculoskeletal structures are intact and without acute osseous abnormality. IMPRESSION: 1. Hepatic hypodensities similar to prior examination likely representing cysts although incompletely evaluated due to the lack of contrast enhancement. Largest lesion measures approximately 1.5 cm. 2. 3 cm left renal cyst similar to prior examination. Previously noted left-sided hydronephrosis resolved. 3. No ascites, obvious adenopathy, or mass lesion. <Electronically signed by Gabe Ortiz > 12/04/20 [id number]
== END ==
LOC: M RAD 11:18
PROVIDERS: ATTEND Internal Medicine Medical Oncology
DX: M50.122 Cervical disc disorder at C5-C6 level with radiculopathy (principal); M50.123 Cervical disc disorder at C6-C7 level with radiculopathy; N28.1 Cyst of kidney, acquired; C67.9 Malignant neoplasm of bladder, unspecified
CPT/HCPCS: 70490; 71250; 74176; Q9963

== ENCOUNTER → 2020-12-28 | Outpatient (CLI) | payer BC ==
[~2020-12-28] MED LIST changes: -GASTROGRAFIN SOLUTION 30ML (Q9963) As Ordered ONE
[2020-12-28 10:02] LABS: BASO # 0.1 10^3/uL (0.0-0.2); BASO % 1.7 % (0.0-1.0); EOS # 0.1 10^3/uL (0.0-0.5); HEMATOCRIT 37.9 % (36.0-47.0); HEMOGLOBIN 12.2 g/dl (12.0-15.5); LYMPH # 1.6 10^3/uL (1.5-5.0); LYMPH % 24.4 % (24.0-44.0); MEAN CORPUSCULAR HEMOGLOBIN 31.2 pg (27.0-33.0); MEAN CORPUSCULAR HGB CONC 32.2 g/dl (32.0-36.5); MEAN CORPUSCULAR VOLUME 96.9 fl (80.0-96.0); MONO # 0.7 10^3/uL (0.0-0.8); MONO % 10.4 % (2.0-8.0); NEUTROPHILS % 61.2 % (36.0-66.0); PLATELET COUNT, AUTOMATED 402 10^3/uL (150-450); RED BLOOD COUNT 3.91 10^6/uL (4.00-5.40); WHITE BLOOD COUNT 6.6 10^3/uL (4.0-10.0)
[2020-12-28 10:25] LABS: ALBUMIN 4.2 GM/DL (3.2-5.2); BILIRUBIN,TOTAL 0.2 MG/DL (0.2-1.0); CALCIUM LEVEL 9.6 MG/DL (8.8-10.2); CREATININE FOR GFR 1.19 MG/DL (0.55-1.30); FREE T4 0.83 NG/DL (0.76-1.46); GLOMERULAR FILTRATION RATE 49.1 (>45); PERCENT SATURATION 10.5 % (13.2-45.0); THYROID STIMULATING HORMONE 0.845 uIU/ML (0.358-3.740); TOTAL PROTEIN 7.7 GM/DL (6.4-8.2)
== END ==
LOC: M WUC 08:51
PROVIDERS: ATTEND Internal Medicine Medical Oncology
DX: C67.9 Malignant neoplasm of bladder, unspecified (principal)

== ENCOUNTER → 2021-01-11 | Outpatient (CLI) | payer BC ==
[2021-01-11 13:07] LABS: BASO # 0.1 10^3/uL (0.0-0.2); BASO % 1.3 % (0.0-1.0); EOS # 0.1 10^3/uL (0.0-0.5); EOS % 0.9 % (0.0-3.0); HEMATOCRIT 36.8 % (36.0-47.0); LYMPH # 1.9 10^3/uL (1.5-5.0); LYMPH % 29.3 % (24.0-44.0); MEAN CORPUSCULAR HEMOGLOBIN 31.1 pg (27.0-33.0); MEAN CORPUSCULAR HGB CONC 32.6 g/dl (32.0-36.5); MEAN CORPUSCULAR VOLUME 95.3 fl (80.0-96.0); MONO # 0.7 10^3/uL (0.0-0.8); MONO % 10.8 % (2.0-8.0); NEUTROPHILS # 3.6 10^3/uL (1.5-8.5); NEUTROPHILS % 57.4 % (36.0-66.0); PLATELET COUNT, AUTOMATED 420 10^3/uL (150-450); RED BLOOD COUNT 3.86 10^6/uL (4.00-5.40); WHITE BLOOD COUNT 6.3 10^3/uL (4.0-10.0)
[2021-01-11 13:45] LABS: ALBUMIN 4.1 GM/DL (3.2-5.2); BILIRUBIN,TOTAL 0.3 MG/DL (0.2-1.0); CALCIUM LEVEL 9.5 MG/DL (8.8-10.2); CREATININE FOR GFR 1.25 MG/DL (0.55-1.30); FREE T4 0.99 NG/DL (0.76-1.46); GLOMERULAR FILTRATION RATE 46.4 (>45); POTASSIUM SERUM 4.6 MEQ/L (3.5-5.1); THYROID STIMULATING HORMONE 0.801 uIU/ML (0.358-3.740); TOTAL PROTEIN 7.7 GM/DL (6.4-8.2)
== END ==
LOC: M WUC 09:47
PROVIDERS: ATTEND Internal Medicine Medical Oncology
DX: C67.9 Malignant neoplasm of bladder, unspecified (principal)

== ENCOUNTER → 2021-01-25 | Outpatient (CLI) | payer BC ==
[2021-01-25 16:27] LABS: BASO # 0.1 10^3/uL (0.0-0.2); BASO % 1.4 % (0.0-1.0); EOS # 0.1 10^3/uL (0.0-0.5); EOS % 1.4 % (0.0-3.0); HEMATOCRIT 37.4 % (36.0-47.0); LYMPH # 2.2 10^3/uL (1.5-5.0); LYMPH % 34.7 % (24.0-44.0); MEAN CORPUSCULAR HEMOGLOBIN 30.9 pg (27.0-33.0); MEAN CORPUSCULAR HGB CONC 32.1 g/dl (32.0-36.5); MEAN CORPUSCULAR VOLUME 96.4 fl (80.0-96.0); MONO # 0.7 10^3/uL (0.0-0.8); MONO % 10.6 % (2.0-8.0); NEUTROPHILS # 3.2 10^3/uL (1.5-8.5); NEUTROPHILS % 51.4 % (36.0-66.0); PLATELET COUNT, AUTOMATED 429 10^3/uL (150-450); RED BLOOD COUNT 3.88 10^6/uL (4.00-5.40); WHITE BLOOD COUNT 6.3 10^3/uL (4.0-10.0)
[2021-01-25 17:07] LABS: ALBUMIN 4.3 GM/DL (3.2-5.2); BILIRUBIN,TOTAL 0.3 MG/DL (0.2-1.0); CALCIUM LEVEL 9.6 MG/DL (8.8-10.2); CREATININE FOR GFR 1.32 MG/DL (0.55-1.30); FREE T4 0.98 NG/DL (0.76-1.46); GLOMERULAR FILTRATION RATE 43.6 (>45); THYROID STIMULATING HORMONE 0.912 uIU/ML (0.358-3.740); TOTAL PROTEIN 8.1 GM/DL (6.4-8.2)
== END ==
LOC: M WUC 12:59
PROVIDERS: ATTEND Internal Medicine Medical Oncology
DX: C67.9 Malignant neoplasm of bladder, unspecified (principal)

== ENCOUNTER → 2021-02-08 | Outpatient (CLI) | payer BC ==
[~2021-02-08] MED LIST changes: +COVI100V IM
[2021-02-08 13:40] LABS: BASO # 0.1 10^3/uL (0.0-0.2); BASO % 1.4 % (0.0-1.0); EOS # 0.1 10^3/uL (0.0-0.5); EOS % 0.8 % (0.0-3.0); HEMATOCRIT 37.7 % (36.0-47.0); HEMOGLOBIN 12.1 g/dl (12.0-15.5); LYMPH # 1.9 10^3/uL (1.5-5.0); LYMPH % 26.9 % (24.0-44.0); MEAN CORPUSCULAR HEMOGLOBIN 31.1 pg (27.0-33.0); MEAN CORPUSCULAR HGB CONC 32.1 g/dl (32.0-36.5); MEAN CORPUSCULAR VOLUME 96.9 fl (80.0-96.0); MONO # 0.7 10^3/uL (0.0-0.8); MONO % 9.7 % (2.0-8.0); NEUTROPHILS # 4.3 10^3/uL (1.5-8.5); NEUTROPHILS % 60.8 % (36.0-66.0); PLATELET COUNT, AUTOMATED 446 10^3/uL (150-450); RED BLOOD COUNT 3.89 10^6/uL (4.00-5.40); WHITE BLOOD COUNT 7.1 10^3/uL (4.0-10.0)
[2021-02-08 14:24] LABS: ALBUMIN 4.1 GM/DL (3.2-5.2); BILIRUBIN,TOTAL 0.4 MG/DL (0.2-1.0); CALCIUM LEVEL 10.5 MG/DL (8.8-10.2); CREATININE FOR GFR 1.37 MG/DL (0.55-1.30); FREE T4 0.9 NG/DL (0.76-1.46); GLOMERULAR FILTRATION RATE 41.7 (>45); POTASSIUM SERUM 4.4 MEQ/L (3.5-5.1); THYROID STIMULATING HORMONE 0.843 uIU/ML (0.358-3.740); TOTAL PROTEIN 7.9 GM/DL (6.4-8.2)
== END ==
LOC: M WUC 09:18
PROVIDERS: ATTEND Internal Medicine Medical Oncology
DX: C67.9 Malignant neoplasm of bladder, unspecified (principal)

== ENCOUNTER → 2021-02-22 | Outpatient (CLI) | payer BC ==
[2021-02-22 10:39] LABS: BASO # 0.1 10^3/uL (0.0-0.2); BASO % 1.5 % (0.0-1.0); EOS # 0.1 10^3/uL (0.0-0.5); EOS % 1.9 % (0.0-3.0); HEMATOCRIT 37.7 % (36.0-47.0); LYMPH % 30.2 % (24.0-44.0); MEAN CORPUSCULAR HEMOGLOBIN 30.6 pg (27.0-33.0); MEAN CORPUSCULAR HGB CONC 31.8 g/dl (32.0-36.5); MEAN CORPUSCULAR VOLUME 96.2 fl (80.0-96.0); MONO # 0.9 10^3/uL (0.0-0.8); MONO % 12.7 % (2.0-8.0); NEUTROPHILS # 3.6 10^3/uL (1.5-8.5); NEUTROPHILS % 53.4 % (36.0-66.0); PLATELET COUNT, AUTOMATED 399 10^3/uL (150-450); RED BLOOD COUNT 3.92 10^6/uL (4.00-5.40); WHITE BLOOD COUNT 6.8 10^3/uL (4.0-10.0)
[2021-02-22 11:14] LABS: BILIRUBIN,TOTAL 0.3 MG/DL (0.2-1.0); CALCIUM LEVEL 9.1 MG/DL (8.8-10.2); CREATININE FOR GFR 1.29 MG/DL (0.55-1.30); FREE T4 0.88 NG/DL (0.76-1.46); GLOMERULAR FILTRATION RATE 44.7 (>45); POTASSIUM SERUM 4.6 MEQ/L (3.5-5.1); THYROID STIMULATING HORMONE 0.964 uIU/ML (0.358-3.740); TOTAL PROTEIN 7.5 GM/DL (6.4-8.2)
== END ==
LOC: M WUC 08:14
PROVIDERS: ATTEND Internal Medicine Medical Oncology
DX: C67.9 Malignant neoplasm of bladder, unspecified (principal)

== ENCOUNTER → 2021-03-08 | Outpatient (CLI) | payer BC ==
[2021-03-08 12:26] LABS: BASO # 0.1 10^3/uL (0.0-0.2); BASO % 1.4 % (0.0-1.0); EOS # 0.1 10^3/uL (0.0-0.5); EOS % 1.7 % (0.0-3.0); HEMATOCRIT 40.8 % (36.0-47.0); HEMOGLOBIN 12.9 g/dl (12.0-15.5); LYMPH # 2.3 10^3/uL (1.5-5.0); LYMPH % 30.1 % (24.0-44.0); MEAN CORPUSCULAR HEMOGLOBIN 30.4 pg (27.0-33.0); MEAN CORPUSCULAR HGB CONC 31.6 g/dl (32.0-36.5); MEAN CORPUSCULAR VOLUME 96.2 fl (80.0-96.0); MONO # 0.9 10^3/uL (0.0-0.8); MONO % 12.2 % (2.0-8.0); NEUTROPHILS # 4.2 10^3/uL (1.5-8.5); NEUTROPHILS % 54.3 % (36.0-66.0); PLATELET COUNT, AUTOMATED 451 10^3/uL (150-450); RED BLOOD COUNT 4.24 10^6/uL (4.00-5.40); WHITE BLOOD COUNT 7.7 10^3/uL (4.0-10.0)
[2021-03-08 13:12] LABS: ALBUMIN 4.2 GM/DL (3.2-5.2); BILIRUBIN,TOTAL 0.3 MG/DL (0.2-1.0); CALCIUM LEVEL 9.6 MG/DL (8.8-10.2); CREATININE FOR GFR 1.33 MG/DL (0.55-1.30); FREE T4 0.89 NG/DL (0.76-1.46); GLOMERULAR FILTRATION RATE 43.2 (>45); POTASSIUM SERUM 4.5 MEQ/L (3.5-5.1); THYROID STIMULATING HORMONE 0.937 uIU/ML (0.358-3.740); TOTAL PROTEIN 7.8 GM/DL (6.4-8.2)
== END ==
LOC: M WUC 07:46
PROVIDERS: ATTEND Internal Medicine Medical Oncology
DX: C67.9 Malignant neoplasm of bladder, unspecified (principal)

== ENCOUNTER → 2021-03-26 | Outpatient (CLI) | payer BC ==
--- NOTE | 2021-03-26 13:37 | REP ---
INDICATION: BLADDER CA COMPARISON: Multiple the latest 12/04/2020 TECHNIQUE: Noncontrast enhanced standard helical technique FINDINGS: The mediastinum and pulmonary syeda appear stable. No mass or adenopathy has developed. There are no pleural or pericardial effusions. The imaged osseous structures are stable. Evaluation of the lung finney shows no new abnormal nodules, masses, or opacities. The lung finney are stable. IMPRESSION: Stable CT findings. No evidence of acute disease. <Electronically signed by Hilario Tsai > 03/26/21 [id number]
--- NOTE | 2021-03-26 13:40 | REP ---
INDICATION: BLADDER CA. COMPARISON: Multiple the latest 12/04/2020 also without contrast TECHNIQUE: Limited noncontrast enhanced standard helical technique without intravenous or oral bowel preparatory contrast administration. FINDINGS: The liver, gallbladder, spleen, pancreas, adrenal glands, and kidneys are unchanged. Once again, there are multiple hepatic cysts and a stable left renal cyst. Limited evaluation of the abdominal aorta and para-aortic regions show no gross abnormalities or significant changes. Limited evaluation of the bowel loops and the mesenteries show no gross abnormalities or significant changes. There is no free fluid or free air. Vascular calcifications and bilateral pelvic phleboliths are again noted status quo. Bone window technique throughout the examination shows no significant change in appearance of the osseous structures. Chronic spinal degenerative changes are noted status quo. IMPRESSION: Stable CT findings as described above. There is no evidence of an acute abnormality. <Electronically signed by Hilario Tsai > 03/26/21 [id number]
--- NOTE | 2021-03-26 13:55 | REPVR ---
PROCEDURE INFORMATION: Exam: CT Neck Without Contrast Exam date and time: 03/26/2021 1:18 PM Age: 61 years old Clinical indication: Other: Bladder CA TECHNIQUE: Imaging protocol: Computed tomography images of the neck without contrast. Radiation optimization: All CT scans at this facility use at least one of these dose optimization techniques: automated exposure control; mA and/or kV adjustment per patient size (includes targeted exams where dose is matched to clinical indication); or iterative reconstruction. COMPARISON: CT Neck without contrast 12/04/2020 12:53 PM FINDINGS: Limitations: Evaluation of the neck is limited without IV contrast. Paranasal sinuses: Moderate mucosal thickening is present in the right maxillary sinus. Nasopharynx: Unremarkable. Oropharynx: Unremarkable. No significant tonsillar enlargement. Hypopharynx: Unremarkable. Larynx: Unremarkable. Normal epiglottis. Retropharyngeal space: Unremarkable. Submandibular/Parotid glands: Normal. Glands are normal in size. Thyroid: Normal. No enlarged or calcified nodules. Lymph nodes: Unremarkable. No lymphadenopathy. Trachea: Visualized trachea is unremarkable. Lungs: Unremarkable as visualized. Bones/joints: Moderate degenerative changes of the cervical spine are present. Soft tissues: Unremarkable. No significant soft tissue swelling. IMPRESSION: 1. Limited unenhanced evaluation of the neck 2. No acute abnormality. Electronically signed by: Srinivasa Phoenix On 03/26/2021 13:55:26 PM
== END ==
LOC: M RAD 12:28
PROVIDERS: ATTEND Internal Medicine Medical Oncology
DX: C67.9 Malignant neoplasm of bladder, unspecified (principal)

== ENCOUNTER → 2021-04-05 | Outpatient (CLI) | payer BC ==
[2021-04-05 12:18] LABS: BASO # 0.1 10^3/uL (0.0-0.2); BASO % 1.7 % (0.0-1.0); EOS # 0.1 10^3/uL (0.0-0.5); EOS % 1.6 % (0.0-3.0); HEMATOCRIT 38.8 % (36.0-47.0); HEMOGLOBIN 12.6 g/dl (12.0-15.5); LYMPH # 2.1 10^3/uL (1.5-5.0); LYMPH % 27.5 % (24.0-44.0); MEAN CORPUSCULAR HEMOGLOBIN 30.2 pg (27.0-33.0); MEAN CORPUSCULAR HGB CONC 32.5 g/dl (32.0-36.5); MONO # 0.8 10^3/uL (0.0-0.8); MONO % 9.9 % (2.0-8.0); NEUTROPHILS # 4.5 10^3/uL (1.5-8.5); NEUTROPHILS % 58.8 % (36.0-66.0); PLATELET COUNT, AUTOMATED 431 10^3/uL (150-450); RED BLOOD COUNT 4.17 10^6/uL (4.00-5.40); WHITE BLOOD COUNT 7.6 10^3/uL (4.0-10.0)
[2021-04-05 12:53] LABS: ALBUMIN 4.2 GM/DL (3.2-5.2); BILIRUBIN,TOTAL 0.3 MG/DL (0.2-1.0); CALCIUM LEVEL 9.4 MG/DL (8.8-10.2); CREATININE FOR GFR 1.41 MG/DL (0.55-1.30); FREE T4 0.89 NG/DL (0.76-1.46); GLOMERULAR FILTRATION RATE 40.2 (>45); POTASSIUM SERUM 4.6 MEQ/L (3.5-5.1); THYROID STIMULATING HORMONE 1.03 uIU/ML (0.358-3.740)
== END ==
LOC: M WUC 07:42
PROVIDERS: ATTEND Internal Medicine Medical Oncology
DX: C67.9 Malignant neoplasm of bladder, unspecified (principal)

== ENCOUNTER → 2021-04-19 | Outpatient (CLI) | payer BC ==
[2021-04-19 12:03] LABS: BASO # 0.1 10^3/uL (0.0-0.2); BASO % 1.8 % (0.0-1.0); EOS # 0.1 10^3/uL (0.0-0.5); EOS % 1.6 % (0.0-3.0); HEMATOCRIT 36.9 % (36.0-47.0); LYMPH # 2.3 10^3/uL (1.5-5.0); LYMPH % 36.4 % (24.0-44.0); MEAN CORPUSCULAR HEMOGLOBIN 30.2 pg (27.0-33.0); MEAN CORPUSCULAR HGB CONC 32.5 g/dl (32.0-36.5); MEAN CORPUSCULAR VOLUME 92.9 fl (80.0-96.0); MONO # 0.8 10^3/uL (0.0-0.8); PLATELET COUNT, AUTOMATED 381 10^3/uL (150-450); RED BLOOD COUNT 3.97 10^6/uL (4.00-5.40); WHITE BLOOD COUNT 6.3 10^3/uL (4.0-10.0)
[2021-04-19 12:58] LABS: ALBUMIN 4.1 GM/DL (3.2-5.2); BILIRUBIN,TOTAL 0.3 MG/DL (0.2-1.0); CALCIUM LEVEL 9.1 MG/DL (8.8-10.2); CREATININE FOR GFR 1.25 MG/DL (0.55-1.30); FREE T4 0.84 NG/DL (0.76-1.46); GLOMERULAR FILTRATION RATE 46.2 (>45); POTASSIUM SERUM 4.5 MEQ/L (3.5-5.1); THYROID STIMULATING HORMONE 0.9 uIU/ML (0.358-3.740); TOTAL PROTEIN 7.6 GM/DL (6.4-8.2)
[2021-04-20 11:02] LABS: PERCENT SATURATION 22.5 % (13.2-45.0)
== END ==
LOC: M WUC 10:02
PROVIDERS: ATTEND Internal Medicine Medical Oncology
DX: C67.9 Malignant neoplasm of bladder, unspecified (principal)

== ENCOUNTER → 2021-05-03 | Outpatient (CLI) | payer BC ==
[2021-05-03 16:26] LABS: ALBUMIN 4.1 GM/DL (3.2-5.2); BILIRUBIN,TOTAL 0.2 MG/DL (0.2-1.0); CALCIUM LEVEL 9.6 MG/DL (8.8-10.2); CREATININE FOR GFR 1.29 MG/DL (0.55-1.30); FREE T4 0.83 NG/DL (0.76-1.46); GLOMERULAR FILTRATION RATE 44.6 (>45); POTASSIUM SERUM 4.4 MEQ/L (3.5-5.1); THYROID STIMULATING HORMONE 1.01 uIU/ML (0.358-3.740); TOTAL PROTEIN 7.6 GM/DL (6.4-8.2)
[2021-05-03 16:30] LABS: BASO # 0.1 10^3/uL (0.0-0.2); BASO % 1.3 % (0.0-1.0); EOS # 0.1 10^3/uL (0.0-0.5); EOS % 1.3 % (0.0-3.0); HEMATOCRIT 37.7 % (36.0-47.0); HEMOGLOBIN 12.2 g/dl (12.0-15.5); LYMPH # 2.6 10^3/uL (1.5-5.0); LYMPH % 38.5 % (24.0-44.0); MEAN CORPUSCULAR HEMOGLOBIN 30.7 pg (27.0-33.0); MEAN CORPUSCULAR HGB CONC 32.4 g/dl (32.0-36.5); MEAN CORPUSCULAR VOLUME 94.7 fl (80.0-96.0); MONO # 0.6 10^3/uL (0.0-0.8); MONO % 9.5 % (2.0-8.0); NEUTROPHILS # 3.3 10^3/uL (1.5-8.5); NEUTROPHILS % 49.1 % (36.0-66.0); PLATELET COUNT, AUTOMATED 386 10^3/uL (150-450); RED BLOOD COUNT 3.98 10^6/uL (4.00-5.40); WHITE BLOOD COUNT 6.8 10^3/uL (4.0-10.0)
== END ==
LOC: M WUC 13:32
PROVIDERS: ATTEND Internal Medicine Medical Oncology
DX: C67.9 Malignant neoplasm of bladder, unspecified (principal)

== ENCOUNTER → 2021-05-17 | Outpatient (CLI) | payer BC ==
[2021-05-17 12:22] LABS: BASO # 0.1 10^3/uL (0.0-0.2); BASO % 1.6 % (0.0-1.0); EOS # 0.1 10^3/uL (0.0-0.5); EOS % 1.7 % (0.0-3.0); HEMATOCRIT 37.7 % (36.0-47.0); HEMOGLOBIN 12.3 g/dl (12.0-15.5); LYMPH # 2.1 10^3/uL (1.5-5.0); LYMPH % 29.5 % (24.0-44.0); MEAN CORPUSCULAR HGB CONC 32.6 g/dl (32.0-36.5); MONO # 0.7 10^3/uL (0.0-0.8); MONO % 10.4 % (2.0-8.0); NEUTROPHILS % 56.7 % (36.0-66.0); PLATELET COUNT, AUTOMATED 450 10^3/uL (150-450); RED BLOOD COUNT 3.97 10^6/uL (4.00-5.40)
[2021-05-17 12:54] LABS: ALBUMIN 4.2 GM/DL (3.2-5.2); BILIRUBIN,TOTAL 0.3 MG/DL (0.2-1.0); CALCIUM LEVEL 9.3 MG/DL (8.8-10.2); CREATININE FOR GFR 1.24 MG/DL (0.55-1.30); FREE T4 0.96 NG/DL (0.76-1.46); GLOMERULAR FILTRATION RATE 46.7 (>45); POTASSIUM SERUM 4.6 MEQ/L (3.5-5.1); THYROID STIMULATING HORMONE 0.792 uIU/ML (0.358-3.740); TOTAL PROTEIN 7.6 GM/DL (6.4-8.2)
== END ==
LOC: M WUC 09:52
PROVIDERS: ATTEND Internal Medicine Medical Oncology
DX: C67.9 Malignant neoplasm of bladder, unspecified (principal)

== ENCOUNTER → 2021-05-31 | Outpatient (CLI) | payer BC ==
[2021-05-31 16:29] LABS: BASO # 0.1 10^3/uL (0.0-0.2); BASO % 1.3 % (0.0-1.0); EOS # 0.3 10^3/uL (0.0-0.5); HEMATOCRIT 38.4 % (36.0-47.0); HEMOGLOBIN 12.5 g/dl (12.0-15.5); LYMPH # 2.5 10^3/uL (1.5-5.0); LYMPH % 35.4 % (24.0-44.0); MEAN CORPUSCULAR HEMOGLOBIN 31.2 pg (27.0-33.0); MEAN CORPUSCULAR HGB CONC 32.6 g/dl (32.0-36.5); MEAN CORPUSCULAR VOLUME 95.8 fl (80.0-96.0); MONO # 0.8 10^3/uL (0.0-0.8); MONO % 11.4 % (2.0-8.0); NEUTROPHILS # 3.3 10^3/uL (1.5-8.5); NEUTROPHILS % 47.3 % (36.0-66.0); PLATELET COUNT, AUTOMATED 430 10^3/uL (150-450); RED BLOOD COUNT 4.01 10^6/uL (4.00-5.40)
[2021-05-31 17:12] LABS: BILIRUBIN,TOTAL 0.4 MG/DL (0.2-1.0); CALCIUM LEVEL 9.4 MG/DL (8.8-10.2); CREATININE FOR GFR 1.29 MG/DL (0.55-1.30); FREE T4 0.83 NG/DL (0.76-1.46); GLOMERULAR FILTRATION RATE 44.6 (>45); POTASSIUM SERUM 4.2 MEQ/L (3.5-5.1); THYROID STIMULATING HORMONE 1.57 uIU/ML (0.358-3.740); TOTAL PROTEIN 7.7 GM/DL (6.4-8.2)
== END ==
LOC: M WUC 10:14
PROVIDERS: ATTEND Internal Medicine Medical Oncology
DX: C67.9 Malignant neoplasm of bladder, unspecified (principal)

== ENCOUNTER → 2021-06-14 | Outpatient (CLI) | payer BC ==
[2021-06-14 10:41] LABS: BASO # 0.2 10^3/uL (0.0-0.2); BASO % 2.2 % (0.0-1.0); EOS # 0.3 10^3/uL (0.0-0.5); EOS % 4.7 % (0.0-3.0); HEMATOCRIT 39.9 % (36.0-47.0); HEMOGLOBIN 12.9 g/dl (12.0-15.5); LYMPH # 2.1 10^3/uL (1.5-5.0); MEAN CORPUSCULAR HEMOGLOBIN 31.5 pg (27.0-33.0); MEAN CORPUSCULAR HGB CONC 32.3 g/dl (32.0-36.5); MEAN CORPUSCULAR VOLUME 97.3 fl (80.0-96.0); MONO # 0.7 10^3/uL (0.0-0.8); MONO % 9.6 % (2.0-8.0); NEUTROPHILS % 54.2 % (36.0-66.0); PLATELET COUNT, AUTOMATED 444 10^3/uL (150-450); WHITE BLOOD COUNT 7.3 10^3/uL (4.0-10.0)
[2021-06-14 11:18] LABS: ALBUMIN 3.9 GM/DL (3.2-5.2); BILIRUBIN,TOTAL 0.3 MG/DL (0.2-1.0); CALCIUM LEVEL 9.4 MG/DL (8.8-10.2); CREATININE FOR GFR 1.41 MG/DL (0.55-1.30); FREE T4 0.84 NG/DL (0.76-1.46); GLOMERULAR FILTRATION RATE 40.2 (>45); POTASSIUM SERUM 4.1 MEQ/L (3.5-5.1); THYROID STIMULATING HORMONE 1.51 uIU/ML (0.358-3.740); TOTAL PROTEIN 7.5 GM/DL (6.4-8.2)
== END ==
LOC: M WUC 07:50
PROVIDERS: ATTEND Internal Medicine Medical Oncology
DX: C67.9 Malignant neoplasm of bladder, unspecified (principal)

== ENCOUNTER → 2021-06-28 | Outpatient (CLI) | payer BC ==
[2021-06-28 16:44] LABS: BASO # 0.1 10^3/uL (0.0-0.2); BASO % 1.4 % (0.0-1.0); EOS # 0.1 10^3/uL (0.0-0.5); EOS % 1.6 % (0.0-3.0); HEMATOCRIT 38.9 % (36.0-47.0); HEMOGLOBIN 12.7 g/dl (12.0-15.5); LYMPH # 2.8 10^3/uL (1.5-5.0); LYMPH % 33.4 % (24.0-44.0); MEAN CORPUSCULAR HEMOGLOBIN 31.5 pg (27.0-33.0); MEAN CORPUSCULAR HGB CONC 32.6 g/dl (32.0-36.5); MEAN CORPUSCULAR VOLUME 96.5 fl (80.0-96.0); MONO # 0.8 10^3/uL (0.0-0.8); MONO % 9.4 % (2.0-8.0); NEUTROPHILS # 4.6 10^3/uL (1.5-8.5); NEUTROPHILS % 53.8 % (36.0-66.0); PLATELET COUNT, AUTOMATED 425 10^3/uL (150-450); RED BLOOD COUNT 4.03 10^6/uL (4.00-5.40); WHITE BLOOD COUNT 8.5 10^3/uL (4.0-10.0)
[2021-06-28 17:23] LABS: ALBUMIN 4.2 GM/DL (3.2-5.2); BILIRUBIN,TOTAL 0.4 MG/DL (0.2-1.0); CALCIUM LEVEL 9.8 MG/DL (8.8-10.2); CREATININE FOR GFR 1.34 MG/DL (0.55-1.30); FREE T4 1.01 NG/DL (0.76-1.46); GLOMERULAR FILTRATION RATE 42.7 (>45); POTASSIUM SERUM 4.6 MEQ/L (3.5-5.1); THYROID STIMULATING HORMONE 1.2 uIU/ML (0.358-3.740); TOTAL PROTEIN 7.9 GM/DL (6.4-8.2)
== END ==
LOC: M WUC 12:11
PROVIDERS: ATTEND Internal Medicine Medical Oncology
DX: C67.9 Malignant neoplasm of bladder, unspecified (principal)

== ENCOUNTER → 2021-07-12 | Outpatient (CLI) | payer BC ==
[2021-07-12 12:42] LABS: BASO # 0.1 10^3/uL (0.0-0.2); BASO % 1.9 % (0.0-1.0); EOS # 0.2 10^3/uL (0.0-0.5); EOS % 2.1 % (0.0-3.0); HEMATOCRIT 37.6 % (36.0-47.0); HEMOGLOBIN 12.3 g/dl (12.0-15.5); LYMPH # 2.5 10^3/uL (1.5-5.0); LYMPH % 34.9 % (24.0-44.0); MEAN CORPUSCULAR HEMOGLOBIN 31.1 pg (27.0-33.0); MEAN CORPUSCULAR HGB CONC 32.7 g/dl (32.0-36.5); MEAN CORPUSCULAR VOLUME 94.9 fl (80.0-96.0); MONO # 0.8 10^3/uL (0.0-0.8); MONO % 11.1 % (2.0-8.0); NEUTROPHILS # 3.6 10^3/uL (1.5-8.5); NEUTROPHILS % 49.6 % (36.0-66.0); PLATELET COUNT, AUTOMATED 442 10^3/uL (150-450); RED BLOOD COUNT 3.96 10^6/uL (4.00-5.40); WHITE BLOOD COUNT 7.2 10^3/uL (4.0-10.0)
[2021-07-12 13:29] LABS: BILIRUBIN,TOTAL 0.3 MG/DL (0.2-1.0); CALCIUM LEVEL 9.8 MG/DL (8.8-10.2); CREATININE FOR GFR 1.22 MG/DL (0.55-1.30); FREE T4 0.94 NG/DL (0.76-1.46); GLOMERULAR FILTRATION RATE 47.5 (>45); POTASSIUM SERUM 4.8 MEQ/L (3.5-5.1); THYROID STIMULATING HORMONE 1.09 uIU/ML (0.358-3.740); TOTAL PROTEIN 7.8 GM/DL (6.4-8.2)
== END ==
LOC: M WUC 08:54
PROVIDERS: ATTEND Internal Medicine Medical Oncology
DX: C67.9 Malignant neoplasm of bladder, unspecified (principal)

== ENCOUNTER → 2021-07-20 | Outpatient (CLI) | payer BC ==
[~2021-07-20] MED LIST changes: +GASTROGRAFIN SOLUTION 30ML (Q9963) As Ordered ONE
--- NOTE | 2021-07-20 13:53 | REP ---
INDICATION: METASTATIC BLADDER CANCER COMPARISON: 03/26/2021 TECHNIQUE: Standard helical technique without intravenous contrast FINDINGS: The mediastinum and pulmonary syeda appear stable. No mass or adenopathy has developed. The tip of the MediPort device is again seen in the superior vena cava. There is no significant change in the appearance of the imaged upper abdomen. Bone window technique throughout the examination shows the osseous structures to be stable. Evaluation of the lung finney shows no new abnormal nodules, masses, or opacities. IMPRESSION: Stable CT findings. There is no evidence of acute disease. <Electronically signed by Hilario Tsai > 07/20/21 [id number]
--- NOTE | 2021-07-20 13:56 | REP ---
INDICATION: METASTATIC BLADDER CANCER. COMPARISON: Multiple the latest 03/26/2021 also without contrast TECHNIQUE: Standard helical technique without intravenous contrast. Oral bowel preparatory contrast was administered prior to the exam. FINDINGS: There are multiple hepatic cysts status quo. There are no new low-density hepatic lesions. The spleen, pancreas, adrenal glands, and kidneys are unchanged. There is a stable left renal cyst. There is no significant change in appearance of the abdominal aorta or para-regions. No adenopathy has developed. There is no significant change in appearance of the bowel loops or the mesenteries. There is no evidence of a mass or adenopathy. There is no free fluid or free air. Bone window technique throughout the examination shows spinal degenerative changes status quo. IMPRESSION: There is no evidence of acute disease or significant change compared to the prior exam with findings as described above. <Electronically signed by Hilario Tsai > 07/20/21 [id number]
--- NOTE | 2021-07-20 14:08 | REPVR ---
PROCEDURE INFORMATION: Exam: CT Neck Without Contrast Exam date and time: 07/20/2021 1:13 PM Age: 61 years old Clinical indication: Condition or disease; Other: Metastatic bladder cancer TECHNIQUE: Imaging protocol: Computed tomography images of the neck without contrast. Radiation optimization: All CT scans at this facility use at least one of these dose optimization techniques: automated exposure control; mA and/or kV adjustment per patient size (includes targeted exams where dose is matched to clinical indication); or iterative reconstruction. COMPARISON: CT Neck without contrast 03/26/2021 1:01 PM FINDINGS: Nasopharynx: Unremarkable. Oropharynx: Unremarkable. No significant tonsillar enlargement. Hypopharynx: Unremarkable. Larynx: Unremarkable. Normal epiglottis. Retropharyngeal space: Unremarkable. Submandibular/Parotid glands: Normal. Glands are normal in size. Thyroid: Normal. No enlarged or calcified nodules. Lymph nodes: Unremarkable. No lymphadenopathy. Trachea: Visualized trachea is unremarkable. Lungs: Unremarkable as visualized. Bones/joints: There is degenerative disc disease and spondylosis. No acute fracture. Soft tissues: Unremarkable. No significant soft tissue swelling. IMPRESSION: No acute findings. Electronically signed by: Ann Victoria On 07/20/2021 14:08:06 PM
== END ==
LOC: M RAD 11:30
PROVIDERS: ATTEND Internal Medicine Medical Oncology
DX: C79.11 Secondary malignant neoplasm of bladder (principal)
CPT/HCPCS: 70490; 71250; 74176; Q9963

== ENCOUNTER → 2021-07-26 | Outpatient (CLI) | payer BC ==
[~2021-07-26] MED LIST changes: -GASTROGRAFIN SOLUTION 30ML (Q9963) As Ordered ONE
[2021-07-26 11:19] LABS: BASO # 0.1 10^3/uL (0.0-0.2); BASO % 1.2 % (0.0-1.0); EOS # 0.2 10^3/uL (0.0-0.5); EOS % 1.7 % (0.0-3.0); HEMATOCRIT 38.2 % (36.0-47.0); HEMOGLOBIN 12.5 g/dl (12.0-15.5); LYMPH # 2.8 10^3/uL (1.5-5.0); LYMPH % 27.5 % (24.0-44.0); MEAN CORPUSCULAR HEMOGLOBIN 31.4 pg (27.0-33.0); MEAN CORPUSCULAR HGB CONC 32.7 g/dl (32.0-36.5); MONO # 0.9 10^3/uL (0.0-0.8); MONO % 9.3 % (2.0-8.0); PLATELET COUNT, AUTOMATED 419 10^3/uL (150-450); RED BLOOD COUNT 3.98 10^6/uL (4.00-5.40)
[2021-07-26 11:54] LABS: CREATININE FOR GFR 1.42 MG/DL (0.55-1.30); GLOMERULAR FILTRATION RATE 39.9 (>45)
[2021-07-26 11:55] LABS: ALBUMIN 4.1 GM/DL (3.2-5.2); BILIRUBIN,TOTAL 0.4 MG/DL (0.2-1.0); CALCIUM LEVEL 9.5 MG/DL (8.8-10.2); FREE T4 0.84 NG/DL (0.76-1.46); POTASSIUM SERUM 4.8 MEQ/L (3.5-5.1); THYROID STIMULATING HORMONE 1.76 uIU/ML (0.358-3.740); TOTAL PROTEIN 7.9 GM/DL (6.4-8.2)
== END ==
LOC: M WUC 10:03
PROVIDERS: ATTEND Internal Medicine Medical Oncology
DX: C67.9 Malignant neoplasm of bladder, unspecified (principal)

== ENCOUNTER → 2021-08-09 | Outpatient (CLI) | payer BC ==
[2021-08-09 11:53] LABS: BASO # 0.1 10^3/uL (0.0-0.2); BASO % 1.9 % (0.0-1.0); EOS # 0.1 10^3/uL (0.0-0.5); EOS % 1.5 % (0.0-3.0); HEMATOCRIT 37.2 % (36.0-47.0); HEMOGLOBIN 12.1 g/dl (12.0-15.5); MEAN CORPUSCULAR HEMOGLOBIN 31.4 pg (27.0-33.0); MEAN CORPUSCULAR HGB CONC 32.5 g/dl (32.0-36.5); MEAN CORPUSCULAR VOLUME 96.6 fl (80.0-96.0); MONO # 0.8 10^3/uL (0.0-0.8); MONO % 11.6 % (2.0-8.0); NEUTROPHILS # 3.5 10^3/uL (1.5-8.5); NEUTROPHILS % 53.7 % (36.0-66.0); PLATELET COUNT, AUTOMATED 436 10^3/uL (150-450); RED BLOOD COUNT 3.85 10^6/uL (4.00-5.40); WHITE BLOOD COUNT 6.5 10^3/uL (4.0-10.0)
[2021-08-09 12:33] LABS: BILIRUBIN,TOTAL 0.2 MG/DL (0.2-1.0); CALCIUM LEVEL 9.4 MG/DL (8.8-10.2); CREATININE FOR GFR 1.28 MG/DL (0.55-1.30); FREE T4 0.97 NG/DL (0.76-1.46); POTASSIUM SERUM 4.4 MEQ/L (3.5-5.1); THYROID STIMULATING HORMONE 0.828 uIU/ML (0.358-3.740); TOTAL PROTEIN 7.5 GM/DL (6.4-8.2)
== END ==
LOC: M WUC 09:37
PROVIDERS: ATTEND Internal Medicine Medical Oncology
DX: C67.9 Malignant neoplasm of bladder, unspecified (principal)

== ENCOUNTER → 2021-08-13 | Outpatient (CLI) | payer BC ==
--- NOTE | 2021-08-13 10:38 | REP ---
INDICATION: PAIN AND SWELLING. No trauma COMPARISON: None. TECHNIQUE: Four views. The lateral views nondiagnostic. It is grossly underpenetrated by the radiographic beam. FINDINGS: The joint spaces are symmetric and relatively well maintained. Mild degenerative changes seen throughout the hand and wrist. There is no evidence of acute fracture or destructive osseous lesion. IMPRESSION: Negative hand. If the patient has wrist pain consider four view wrist series. <Electronically signed by Hilario Tsai > 08/13/21 [id number]
== END ==
LOC: M WUC 09:17
PROVIDERS: ATTEND Internal Medicine Medical Oncology
DX: M79.89 Other specified soft tissue disorders (principal)

== ENCOUNTER → 2021-08-16 | Outpatient (CLI) | payer BC ==
--- NOTE | 2021-08-16 13:39 | REP ---
INDICATION: RT HAND SWELLING. COMPARISON: None. TECHNIQUE: Real-time sonographic evaluation of the dorsal aspect of the wrist over an area of swelling FINDINGS: There are no cystic or solid masses. There is no ultrasonographic evidence of an abnormality. IMPRESSION: No abnormalities identified <Electronically signed by Hilario Tsai > 08/16/21 [id number]
== END ==
LOC: M RAD 13:05
PROVIDERS: ATTEND Internal Medicine Medical Oncology
DX: M79.89 Other specified soft tissue disorders (principal)

== ENCOUNTER → 2021-08-23 | Outpatient (CLI) | payer BC ==
[2021-08-23 12:59] LABS: BASO # 0.1 10^3/uL (0.0-0.2); BASO % 1.7 % (0.0-1.0); EOS # 0.1 10^3/uL (0.0-0.5); EOS % 1.5 % (0.0-3.0); HEMATOCRIT 38.7 % (36.0-47.0); HEMOGLOBIN 12.5 g/dl (12.0-15.5); LYMPH # 2.7 10^3/uL (1.5-5.0); MEAN CORPUSCULAR HEMOGLOBIN 31.4 pg (27.0-33.0); MEAN CORPUSCULAR HGB CONC 32.3 g/dl (32.0-36.5); MEAN CORPUSCULAR VOLUME 97.2 fl (80.0-96.0); MONO # 0.8 10^3/uL (0.0-0.8); MONO % 10.8 % (2.0-8.0); NEUTROPHILS # 3.5 10^3/uL (1.5-8.5); NEUTROPHILS % 48.9 % (36.0-66.0); PLATELET COUNT, AUTOMATED 442 10^3/uL (150-450); RED BLOOD COUNT 3.98 10^6/uL (4.00-5.40); WHITE BLOOD COUNT 7.2 10^3/uL (4.0-10.0)
[2021-08-23 13:33] LABS: ALBUMIN 4.1 GM/DL (3.2-5.2); BILIRUBIN,TOTAL 0.3 MG/DL (0.2-1.0); CALCIUM LEVEL 9.8 MG/DL (8.8-10.2); CREATININE FOR GFR 1.28 MG/DL (0.55-1.30); POTASSIUM SERUM 4.4 MEQ/L (3.5-5.1); THYROID STIMULATING HORMONE 1.07 uIU/ML (0.358-3.740); TOTAL PROTEIN 7.9 GM/DL (6.4-8.2)
== END ==
LOC: M WUC 10:01
PROVIDERS: ATTEND Internal Medicine Medical Oncology
DX: C67.9 Malignant neoplasm of bladder, unspecified (principal)

== ENCOUNTER → 2021-09-06 | Outpatient (CLI) | payer BC ==
[2021-09-06 12:44] LABS: BASO # 0.1 10^3/uL (0.0-0.2); BASO % 1.6 % (0.0-1.0); EOS # 0.1 10^3/uL (0.0-0.5); EOS % 1.1 % (0.0-3.0); HEMATOCRIT 39.3 % (36.0-47.0); HEMOGLOBIN 12.7 g/dl (12.0-15.5); LYMPH # 2.3 10^3/uL (1.5-5.0); LYMPH % 30.8 % (24.0-44.0); MEAN CORPUSCULAR HEMOGLOBIN 31.3 pg (27.0-33.0); MEAN CORPUSCULAR HGB CONC 32.3 g/dl (32.0-36.5); MEAN CORPUSCULAR VOLUME 96.8 fl (80.0-96.0); MONO # 0.8 10^3/uL (0.0-0.8); MONO % 11.1 % (2.0-8.0); NEUTROPHILS # 4.2 10^3/uL (1.5-8.5); NEUTROPHILS % 55.1 % (36.0-66.0); PLATELET COUNT, AUTOMATED 422 10^3/uL (150-450); RED BLOOD COUNT 4.06 10^6/uL (4.00-5.40); WHITE BLOOD COUNT 7.5 10^3/uL (4.0-10.0)
[2021-09-06 13:12] LABS: ALBUMIN 4.1 GM/DL (3.2-5.2); BILIRUBIN,TOTAL 0.3 MG/DL (0.2-1.0); CALCIUM LEVEL 9.5 MG/DL (8.8-10.2); CREATININE FOR GFR 1.31 MG/DL (0.55-1.30); FREE T4 1.07 NG/DL (0.76-1.46); GLOMERULAR FILTRATION RATE 43.8 (>45); POTASSIUM SERUM 4.4 MEQ/L (3.5-5.1); THYROID STIMULATING HORMONE 0.998 uIU/ML (0.358-3.740); TOTAL PROTEIN 7.7 GM/DL (6.4-8.2)
== END ==
LOC: M WUC 09:23
PROVIDERS: ATTEND Internal Medicine Medical Oncology
DX: C67.9 Malignant neoplasm of bladder, unspecified (principal)

== ENCOUNTER → 2021-09-20 | Outpatient (CLI) | payer BC ==
[~2021-09-20] MED LIST changes: +ONDA-84 PO; -ONDA8TAB10 PO; -PROC10TA4 PO; +PROC10TA5 PO
[2021-09-20 09:59] LABS: BASO # 0.1 10^3/uL (0.0-0.2); BASO % 1.2 % (0.0-1.0); EOS # 0.1 10^3/uL (0.0-0.5); EOS % 1.2 % (0.0-3.0); HEMATOCRIT 38.2 % (36.0-47.0); HEMOGLOBIN 12.5 g/dl (12.0-15.5); LYMPH # 1.8 10^3/uL (1.5-5.0); LYMPH % 27.5 % (24.0-44.0); MEAN CORPUSCULAR HEMOGLOBIN 30.6 pg (27.0-33.0); MEAN CORPUSCULAR HGB CONC 32.7 g/dl (32.0-36.5); MEAN CORPUSCULAR VOLUME 93.6 fl (80.0-96.0); MONO # 0.7 10^3/uL (0.0-0.8); MONO % 10.3 % (2.0-8.0); NEUTROPHILS # 3.9 10^3/uL (1.5-8.5); NEUTROPHILS % 59.5 % (36.0-66.0); PLATELET COUNT, AUTOMATED 414 10^3/uL (150-450); RED BLOOD COUNT 4.08 10^6/uL (4.00-5.40); WHITE BLOOD COUNT 6.6 10^3/uL (4.0-10.0)
[2021-09-20 10:28] LABS: ALBUMIN 3.9 GM/DL (3.2-5.2); BILIRUBIN,TOTAL 0.3 MG/DL (0.2-1.0); CALCIUM LEVEL 9.7 MG/DL (8.8-10.2); CREATININE FOR GFR 1.4 MG/DL (0.55-1.30); FREE T4 1.07 NG/DL (0.76-1.46); GLOMERULAR FILTRATION RATE 40.6 (>45); POTASSIUM SERUM 4.8 MEQ/L (3.5-5.1); THYROID STIMULATING HORMONE 0.914 uIU/ML (0.358-3.740); TOTAL PROTEIN 7.4 GM/DL (6.4-8.2)
== END ==
LOC: M WUC 08:07
PROVIDERS: ATTEND Internal Medicine Medical Oncology
DX: C67.8 Malignant neoplasm of overlapping sites of bladder (principal)

== ENCOUNTER → 2021-09-24 | Outpatient (CLI) | payer BC ==
[2021-09-24 17:01] LABS: APPEARANCE, URINE HAZY (CLEAR); BACTERIA, URINE AUTO NEGATIVE (NEGATIVE); BILIRUBIN, URINE AUTO NEGATIVE (NEGATIVE); BLOOD, URINE BLOOD NEGATIVE (NEGATIVE); COLOR, URINE YELLOW (YELLOW); GLUCOSE, URINE (UA) AUTO NEGATIVE (NEGATIVE); KETONE, URINE AUTO NEGATIVE (NEGATIVE); LEUKOCYTE ESTERASE, URINE AUTO TRACE (NEGATIVE); MUCUS, URINE SMALL (NEGATIVE); NITRITE, URINE AUTO NEGATIVE (NEGATIVE); PROTEIN, URINE AUTO NEGATIVE (NEGATIVE); RBC, URINE AUTO 1 /HPF (0-3); SPECIFIC GRAVITY URINE AUTO 1.012 (1.002-1.035); SQUAMOUS EPITHELIAL CELL UR AU 3 /HPF (0-6); UROBILINOGEN, URINE AUTO 0.2 mg/dL (0.0-2.0); WBC, URINE AUTO 3 /HPF (0-3)
== END ==
LOC: M WUC 10:41
PROVIDERS: ATTEND Internal Medicine Medical Oncology
DX: C67.9 Malignant neoplasm of bladder, unspecified (principal)

== ENCOUNTER → 2021-10-03 | Outpatient (CLI) | payer BC ==
[~2021-10-03] MED LIST changes: -ONDA-84 PO; +ONDA8TAB10 PO; +PROC10TA4 PO; -PROC10TA5 PO
--- NOTE | 2021-10-03 14:40 | REP ---
INDICATION: RENAL INSUFF. COMPARISON: None. TECHNIQUE: Real-time sonographic evaluation of the kidneys with Doppler FINDINGS: Multiple ultrasonographic images of the right kidney show the right kidney to measure 10.2 x 5.2 x 4.9 cm. The renal cortical echotexture is unremarkable. There are no masses. There is good corticomedullary differentiation. There is no hydronephrosis. There are no perinephric fluid collections. Multiple ultrasonographic images of the left kidney show the left kidney to measure 9 x 4 x 4.9 cm. The renal cortical echotexture is unremarkable. There are no solid masses. There is good corticomedullary differentiation. There is no hydronephrosis. There are no perinephric fluid collections. There is a 4 cm sized anechoic structure seen arising from the inferior pole consistent with a known simple cyst seen on prior CT of 07/20/2021. IMPRESSION: Simple left renal cyst. <Electronically signed by Hilario Tsai > 10/03/21 [id number]
== END ==
LOC: M RAD 14:00
PROVIDERS: ATTEND Internal Medicine Medical Oncology
DX: N28.9 Disorder of kidney and ureter, unspecified (principal); C67.9 Malignant neoplasm of bladder, unspecified

== ENCOUNTER → 2021-10-03 | Outpatient (CLI) | payer BC ==
[2021-10-03 12:43] LABS: BASO # 0.1 10^3/uL (0.0-0.2); BASO % 2.1 % (0.0-1.0); EOS # 0.1 10^3/uL (0.0-0.5); EOS % 1.5 % (0.0-3.0); HEMATOCRIT 38.3 % (36.0-47.0); HEMOGLOBIN 12.7 g/dl (12.0-15.5); LYMPH # 2.5 10^3/uL (1.5-5.0); MEAN CORPUSCULAR HEMOGLOBIN 31.3 pg (27.0-33.0); MEAN CORPUSCULAR HGB CONC 33.2 g/dl (32.0-36.5); MEAN CORPUSCULAR VOLUME 94.3 fl (80.0-96.0); MONO # 0.7 10^3/uL (0.0-0.8); NEUTROPHILS # 3.4 10^3/uL (1.5-8.5); NEUTROPHILS % 50.3 % (36.0-66.0); PLATELET COUNT, AUTOMATED 437 10^3/uL (150-450); RED BLOOD COUNT 4.06 10^6/uL (4.00-5.40); WHITE BLOOD COUNT 6.8 10^3/uL (4.0-10.0)
[2021-10-03 13:15] LABS: ALBUMIN 4.3 GM/DL (3.2-5.2); BILIRUBIN,TOTAL 0.4 MG/DL (0.2-1.0); CALCIUM LEVEL 9.8 MG/DL (8.8-10.2); CREATININE FOR GFR 1.31 MG/DL (0.55-1.30); FREE T4 0.99 NG/DL (0.76-1.46); GLOMERULAR FILTRATION RATE 43.8 (>45); POTASSIUM SERUM 4.2 MEQ/L (3.5-5.1); THYROID STIMULATING HORMONE 1.08 uIU/ML (0.358-3.740)
== END ==
LOC: M WUC 11:34
PROVIDERS: ATTEND Internal Medicine Medical Oncology
DX: C67.9 Malignant neoplasm of bladder, unspecified (principal)

== ENCOUNTER → 2021-10-18 | Outpatient (CLI) | payer BC ==
[~2021-10-18] MED LIST changes: +ONDA-84 PO; -ONDA8TAB10 PO; -PROC10TA4 PO; +PROC10TA5 PO
[2021-10-18 10:49] LABS: BASO # 0.1 10^3/uL (0.0-0.2); BASO % 1.2 % (0.0-1.0); EOS # 0.1 10^3/uL (0.0-0.5); EOS % 1.8 % (0.0-3.0); HEMATOCRIT 39.1 % (36.0-47.0); HEMOGLOBIN 12.6 g/dl (12.0-15.5); LYMPH # 1.8 10^3/uL (1.5-5.0); LYMPH % 27.1 % (24.0-44.0); MEAN CORPUSCULAR HEMOGLOBIN 30.7 pg (27.0-33.0); MEAN CORPUSCULAR HGB CONC 32.2 g/dl (32.0-36.5); MEAN CORPUSCULAR VOLUME 95.1 fl (80.0-96.0); MONO # 0.8 10^3/uL (0.0-0.8); MONO % 11.2 % (2.0-8.0); NEUTROPHILS # 3.9 10^3/uL (1.5-8.5); NEUTROPHILS % 58.3 % (36.0-66.0); PLATELET COUNT, AUTOMATED 429 10^3/uL (150-450); RED BLOOD COUNT 4.11 10^6/uL (4.00-5.40); WHITE BLOOD COUNT 6.7 10^3/uL (4.0-10.0)
[2021-10-18 11:08] LABS: BILIRUBIN,TOTAL 0.3 MG/DL (0.2-1.0); CALCIUM LEVEL 9.5 MG/DL (8.8-10.2); CREATININE FOR GFR 1.35 MG/DL (0.55-1.30); FREE T4 1.01 NG/DL (0.76-1.46); GLOMERULAR FILTRATION RATE 42.3 (>45); POTASSIUM SERUM 4.5 MEQ/L (3.5-5.1); THYROID STIMULATING HORMONE 0.966 uIU/ML (0.358-3.740); TOTAL PROTEIN 7.5 GM/DL (6.4-8.2)
== END ==
LOC: M WUC 07:46
PROVIDERS: ATTEND Internal Medicine Medical Oncology
DX: C67.9 Malignant neoplasm of bladder, unspecified (principal)

== ENCOUNTER → 2021-11-01 | Outpatient (CLI) | payer BC ==
[2021-11-01 10:22] LABS: BASO # 0.1 10^3/uL (0.0-0.2); BASO % 1.6 % (0.0-1.0); EOS # 0.1 10^3/uL (0.0-0.5); EOS % 1.9 % (0.0-3.0); HEMATOCRIT 40.2 % (36.0-47.0); HEMOGLOBIN 12.8 g/dl (12.0-15.5); LYMPH # 1.8 10^3/uL (1.5-5.0); LYMPH % 26.7 % (24.0-44.0); MEAN CORPUSCULAR HEMOGLOBIN 30.6 pg (27.0-33.0); MEAN CORPUSCULAR HGB CONC 31.8 g/dl (32.0-36.5); MEAN CORPUSCULAR VOLUME 96.2 fl (80.0-96.0); MONO # 0.7 10^3/uL (0.0-0.8); MONO % 9.6 % (2.0-8.0); NEUTROPHILS # 4.1 10^3/uL (1.5-8.5); NEUTROPHILS % 60.1 % (36.0-66.0); PLATELET COUNT, AUTOMATED 463 10^3/uL (150-450); RED BLOOD COUNT 4.18 10^6/uL (4.00-5.40); WHITE BLOOD COUNT 6.8 10^3/uL (4.0-10.0)
[2021-11-01 11:10] LABS: ALBUMIN 4.1 GM/DL (3.2-5.2); BILIRUBIN,TOTAL 0.2 MG/DL (0.2-1.0); CALCIUM LEVEL 9.6 MG/DL (8.8-10.2); CREATININE FOR GFR 1.33 MG/DL (0.55-1.30); FREE T4 0.91 NG/DL (0.76-1.46); POTASSIUM SERUM 4.9 MEQ/L (3.5-5.1); THYROID STIMULATING HORMONE 1.1 uIU/ML (0.358-3.740); TOTAL PROTEIN 7.7 GM/DL (6.4-8.2)
== END ==
LOC: M WUC 07:50
PROVIDERS: ATTEND Internal Medicine Medical Oncology
DX: C67.9 Malignant neoplasm of bladder, unspecified (principal)

== ENCOUNTER → 2021-11-09 | Outpatient (CLI) | payer BC ==
[~2021-11-09] MED LIST changes: +GASTROGRAFIN SOLUTION 30ML (Q9963) As Ordered ONE; +ISOVUE-370 76% 100ML VIAL As Ordered ONE
== END ==
LOC: M RAD 13:21
PROVIDERS: ATTEND Internal Medicine Medical Oncology
DX: C67.9 Malignant neoplasm of bladder, unspecified (principal); N28.1 Cyst of kidney, acquired; M51.36 Other intervertebral disc degeneration, lumbar region; Z95.828 Presence of other vascular implants and grafts; M51.34 Other intervertebral disc degeneration, thoracic region
CPT/HCPCS: 71250; 74176; Q9963

== ENCOUNTER → 2021-11-15 | Outpatient (CLI) | payer BC ==
[~2021-11-15] MED LIST changes: -GASTROGRAFIN SOLUTION 30ML (Q9963) As Ordered ONE; -ISOVUE-370 76% 100ML VIAL As Ordered ONE
[2021-11-15 12:59] LABS: BASO # 0.1 10^3/uL (0.0-0.2); BASO % 1.1 % (0.0-1.0); EOS # 0.1 10^3/uL (0.0-0.5); EOS % 1.2 % (0.0-3.0); HEMATOCRIT 36.9 % (36.0-47.0); HEMOGLOBIN 12.1 g/dl (12.0-15.5); LYMPH # 2.2 10^3/uL (1.5-5.0); LYMPH % 29.5 % (24.0-44.0); MEAN CORPUSCULAR HEMOGLOBIN 31.2 pg (27.0-33.0); MEAN CORPUSCULAR HGB CONC 32.8 g/dl (32.0-36.5); MEAN CORPUSCULAR VOLUME 95.1 fl (80.0-96.0); MONO # 0.8 10^3/uL (0.0-0.8); MONO % 10.4 % (2.0-8.0); NEUTROPHILS # 4.4 10^3/uL (1.5-8.5); NEUTROPHILS % 57.5 % (36.0-66.0); PLATELET COUNT, AUTOMATED 391 10^3/uL (150-450); RED BLOOD COUNT 3.88 10^6/uL (4.00-5.40); WHITE BLOOD COUNT 7.6 10^3/uL (4.0-10.0)
[2021-11-15 13:38] LABS: ALBUMIN 4.1 GM/DL (3.2-5.2); BILIRUBIN,TOTAL 0.3 MG/DL (0.2-1.0); CALCIUM LEVEL 9.8 MG/DL (8.8-10.2); CREATININE FOR GFR 1.43 MG/DL (0.55-1.30); FREE T4 0.87 NG/DL (0.76-1.46); GLOMERULAR FILTRATION RATE 39.6 (>45); POTASSIUM SERUM 4.6 MEQ/L (3.5-5.1); THYROID STIMULATING HORMONE 1.75 uIU/ML (0.358-3.740); TOTAL PROTEIN 7.5 GM/DL (6.4-8.2)
== END ==
LOC: M WUC 10:07
PROVIDERS: ATTEND Internal Medicine Medical Oncology
DX: C67.9 Malignant neoplasm of bladder, unspecified (principal)

== ENCOUNTER → 2021-11-29 | Outpatient (CLI) | payer BC ==
[2021-11-29 10:20] LABS: BASO # 0.1 10^3/uL (0.0-0.2); BASO % 0.9 % (0.0-1.0); EOS # 0.1 10^3/uL (0.0-0.5); EOS % 0.7 % (0.0-3.0); HEMATOCRIT 39.9 % (36.0-47.0); HEMOGLOBIN 12.8 g/dl (12.0-15.5); LYMPH # 1.6 10^3/uL (1.5-5.0); LYMPH % 15.3 % (24.0-44.0); MEAN CORPUSCULAR HEMOGLOBIN 30.8 pg (27.0-33.0); MEAN CORPUSCULAR HGB CONC 32.1 g/dl (32.0-36.5); MEAN CORPUSCULAR VOLUME 95.9 fl (80.0-96.0); MONO # 0.9 10^3/uL (0.0-0.8); MONO % 7.9 % (2.0-8.0); NEUTROPHILS % 74.8 % (36.0-66.0); PLATELET COUNT, AUTOMATED 438 10^3/uL (150-450); RED BLOOD COUNT 4.16 10^6/uL (4.00-5.40); WHITE BLOOD COUNT 10.7 10^3/uL (4.0-10.0)
[2021-11-29 10:58] LABS: ALBUMIN 4.1 GM/DL (3.2-5.2); BILIRUBIN,TOTAL 0.3 MG/DL (0.2-1.0); CALCIUM LEVEL 9.3 MG/DL (8.8-10.2); CREATININE FOR GFR 1.63 MG/DL (0.55-1.30); FREE T4 0.93 NG/DL (0.76-1.46); POTASSIUM SERUM 4.5 MEQ/L (3.5-5.1); THYROID STIMULATING HORMONE 0.796 uIU/ML (0.358-3.740); TOTAL PROTEIN 7.9 GM/DL (6.4-8.2)
== END ==
LOC: M WUC 07:55
PROVIDERS: ATTEND Internal Medicine Medical Oncology
DX: C67.9 Malignant neoplasm of bladder, unspecified (principal)

== ENCOUNTER → 2021-12-13 | Outpatient (CLI) | payer BC ==
[2021-12-13 09:36] LABS: BASO # 0.1 10^3/uL (0.0-0.2); EOS # 0.1 10^3/uL (0.0-0.5); EOS % 1.1 % (0.0-3.0); HEMATOCRIT 37.9 % (36.0-47.0); HEMOGLOBIN 12.3 g/dl (12.0-15.5); LYMPH # 1.9 10^3/uL (1.5-5.0); LYMPH % 18.6 % (24.0-44.0); MEAN CORPUSCULAR HEMOGLOBIN 30.5 pg (27.0-33.0); MEAN CORPUSCULAR HGB CONC 32.5 g/dl (32.0-36.5); MONO % 9.6 % (2.0-8.0); NEUTROPHILS % 69.3 % (36.0-66.0); PLATELET COUNT, AUTOMATED 479 10^3/uL (150-450); RED BLOOD COUNT 4.03 10^6/uL (4.00-5.40); WHITE BLOOD COUNT 10.1 10^3/uL (4.0-10.0)
[2021-12-13 10:09] LABS: ALBUMIN 4.1 GM/DL (3.2-5.2); BILIRUBIN,TOTAL 0.3 MG/DL (0.2-1.0); CALCIUM LEVEL 9.9 MG/DL (8.8-10.2); CREATININE FOR GFR 1.42 MG/DL (0.55-1.30); FREE T4 0.92 NG/DL (0.76-1.46); GLOMERULAR FILTRATION RATE 39.9 (>45); POTASSIUM SERUM 4.6 MEQ/L (3.5-5.1); THYROID STIMULATING HORMONE 0.708 uIU/ML (0.358-3.740); TOTAL PROTEIN 7.8 GM/DL (6.4-8.2)
== END ==
LOC: M WUC 07:47
PROVIDERS: ATTEND Internal Medicine Medical Oncology
DX: C67.9 Malignant neoplasm of bladder, unspecified (principal)

== ENCOUNTER → 2021-12-27 | Outpatient (CLI) | payer BC ==
[2021-12-27 11:48] LABS: BASO # 0.1 10^3/uL (0.0-0.2); EOS # 0.2 10^3/uL (0.0-0.5); EOS % 1.9 % (0.0-3.0); HEMATOCRIT 37.7 % (36.0-47.0); HEMOGLOBIN 12.2 g/dl (12.0-15.5); LYMPH # 1.9 10^3/uL (1.5-5.0); LYMPH % 23.9 % (24.0-44.0); MEAN CORPUSCULAR HEMOGLOBIN 30.8 pg (27.0-33.0); MEAN CORPUSCULAR HGB CONC 32.4 g/dl (32.0-36.5); MEAN CORPUSCULAR VOLUME 95.2 fl (80.0-96.0); MONO # 0.8 10^3/uL (0.0-0.8); MONO % 9.9 % (2.0-8.0); PLATELET COUNT, AUTOMATED 418 10^3/uL (150-450); RED BLOOD COUNT 3.96 10^6/uL (4.00-5.40); WHITE BLOOD COUNT 7.9 10^3/uL (4.0-10.0)
[2021-12-27 12:32] LABS: ALBUMIN 4.1 GM/DL (3.2-5.2); BILIRUBIN,TOTAL 0.3 MG/DL (0.2-1.0); CALCIUM LEVEL 9.7 MG/DL (8.8-10.2); CREATININE FOR GFR 1.31 MG/DL (0.55-1.30); FREE T4 0.93 NG/DL (0.76-1.46); GLOMERULAR FILTRATION RATE 43.8 (>45); POTASSIUM SERUM 4.7 MEQ/L (3.5-5.1); THYROID STIMULATING HORMONE 0.819 uIU/ML (0.358-3.740); TOTAL PROTEIN 7.6 GM/DL (6.4-8.2)
== END ==
LOC: M WUC 08:03
PROVIDERS: ATTEND Internal Medicine Medical Oncology
DX: N28.89 Other specified disorders of kidney and ureter (principal); C67.9 Malignant neoplasm of bladder, unspecified

== ENCOUNTER → 2022-01-10 | Outpatient (CLI) | payer BC ==
[2022-01-10 09:45] LABS: BASO # 0.1 10^3/uL (0.0-0.2); BASO % 1.2 % (0.0-1.0); EOS # 0.1 10^3/uL (0.0-0.5); HEMATOCRIT 37.8 % (36.0-47.0); HEMOGLOBIN 12.3 g/dl (12.0-15.5); LYMPH % 26.6 % (24.0-44.0); MEAN CORPUSCULAR HEMOGLOBIN 30.6 pg (27.0-33.0); MEAN CORPUSCULAR HGB CONC 32.5 g/dl (32.0-36.5); MONO # 0.8 10^3/uL (0.0-0.8); MONO % 10.4 % (2.0-8.0); NEUTROPHILS # 4.7 10^3/uL (1.5-8.5); NEUTROPHILS % 60.7 % (36.0-66.0); PLATELET COUNT, AUTOMATED 432 10^3/uL (150-450); RED BLOOD COUNT 4.02 10^6/uL (4.00-5.40); WHITE BLOOD COUNT 7.7 10^3/uL (4.0-10.0)
[2022-01-10 10:21] LABS: BILIRUBIN,TOTAL 0.4 MG/DL (0.2-1.0); CALCIUM LEVEL 9.3 MG/DL (8.8-10.2); CREATININE FOR GFR 1.37 MG/DL (0.55-1.30); FREE T4 0.98 NG/DL (0.76-1.46); GLOMERULAR FILTRATION RATE 41.6 (>45); THYROID STIMULATING HORMONE 1.21 uIU/ML (0.358-3.740); TOTAL PROTEIN 7.8 GM/DL (6.4-8.2)
== END ==
LOC: M WUC 08:22
PROVIDERS: ATTEND Internal Medicine Medical Oncology
DX: C67.9 Malignant neoplasm of bladder, unspecified (principal); N28.89 Other specified disorders of kidney and ureter

== ENCOUNTER → 2022-01-24 | Outpatient (CLI) | payer BC ==
[2022-01-24 10:47] LABS: HEMOGLOBIN 12.5 g/dl (12.0-15.5); MEAN CORPUSCULAR HEMOGLOBIN 31.5 pg (27.0-33.0); MEAN CORPUSCULAR HGB CONC 32.9 g/dl (32.0-36.5); MEAN CORPUSCULAR VOLUME 95.7 fl (80.0-96.0); PLATELET COUNT, AUTOMATED 453 10^3/uL (150-450); RED BLOOD COUNT 3.97 10^6/uL (4.00-5.40)
[2022-01-24 11:27] LABS: ALBUMIN 4.1 GM/DL (3.2-5.2); BILIRUBIN,TOTAL 0.3 MG/DL (0.2-1.0); CALCIUM LEVEL 9.4 MG/DL (8.8-10.2); CREATININE FOR GFR 1.35 MG/DL (0.55-1.30); FREE T4 0.91 NG/DL (0.76-1.46); GLOMERULAR FILTRATION RATE 42.3 (>45); POTASSIUM SERUM 4.7 MEQ/L (3.5-5.1); THYROID STIMULATING HORMONE 0.829 uIU/ML (0.358-3.740); TOTAL PROTEIN 7.5 GM/DL (6.4-8.2)
[2022-01-25 08:01] LABS: BASO # 0.1 10^3/uL (0.0-0.2); BASO % 1.5 % (0.0-1.0); EOS # 0.1 10^3/uL (0.0-0.5); EOS % 1.5 % (0.0-3.0); LYMPH % 27.9 % (24.0-44.0); MONO # 0.8 10^3/uL (0.0-0.8); MONO % 10.7 % (2.0-8.0); NEUTROPHILS # 4.2 10^3/uL (1.5-8.5)
== END ==
LOC: M WUC 07:51
PROVIDERS: ATTEND Internal Medicine Medical Oncology
DX: C67.9 Malignant neoplasm of bladder, unspecified (principal); N28.89 Other specified disorders of kidney and ureter

== ENCOUNTER → 2022-02-07 | Outpatient (CLI) | payer BC ==
[2022-02-07 18:02] LABS: HEMATOCRIT 37.3 % (36.0-47.0); HEMOGLOBIN 12.1 g/dl (12.0-15.5); MEAN CORPUSCULAR HEMOGLOBIN 31.7 pg (27.0-33.0); MEAN CORPUSCULAR HGB CONC 32.4 g/dl (32.0-36.5); MEAN CORPUSCULAR VOLUME 97.6 fl (80.0-96.0); PLATELET COUNT, AUTOMATED 395 10^3/uL (150-450); RED BLOOD COUNT 3.82 10^6/uL (4.00-5.40); WHITE BLOOD COUNT 7.3 10^3/uL (4.0-10.0)
[2022-02-07 19:13] LABS: ALBUMIN 4.2 GM/DL (3.2-5.2); BILIRUBIN,TOTAL 0.3 MG/DL (0.2-1.0); CALCIUM LEVEL 9.6 MG/DL (8.8-10.2); CREATININE FOR GFR 1.18 MG/DL (0.55-1.30); FREE T4 0.94 NG/DL (0.76-1.46); GLOMERULAR FILTRATION RATE 49.4 (>45); POTASSIUM SERUM 4.3 MEQ/L (3.5-5.1); THYROID STIMULATING HORMONE 0.92 uIU/ML (0.358-3.740); TOTAL PROTEIN 7.7 GM/DL (6.4-8.2)
== END ==
LOC: M WUC 11:34
PROVIDERS: ATTEND Internal Medicine Medical Oncology
DX: N28.89 Other specified disorders of kidney and ureter (principal); C67.9 Malignant neoplasm of bladder, unspecified

== ENCOUNTER → 2022-02-21 | Outpatient (CLI) | payer BC ==
[2022-02-21 15:36] LABS: BASO # 0.1 10^3/uL (0.0-0.2); BASO % 1.2 % (0.0-1.0); EOS # 0.1 10^3/uL (0.0-0.5); EOS % 1.5 % (0.0-3.0); HEMATOCRIT 37.7 % (36.0-47.0); HEMOGLOBIN 12.2 g/dl (12.0-15.5); LYMPH # 2.4 10^3/uL (1.5-5.0); LYMPH % 32.9 % (24.0-44.0); MEAN CORPUSCULAR HEMOGLOBIN 31.3 pg (27.0-33.0); MEAN CORPUSCULAR HGB CONC 32.4 g/dl (32.0-36.5); MEAN CORPUSCULAR VOLUME 96.7 fl (80.0-96.0); MONO # 0.7 10^3/uL (0.0-0.8); MONO % 9.5 % (2.0-8.0); NEUTROPHILS % 54.5 % (36.0-66.0); PLATELET COUNT, AUTOMATED 473 10^3/uL (150-450); WHITE BLOOD COUNT 7.3 10^3/uL (4.0-10.0)
[2022-02-21 16:07] LABS: ALBUMIN 4.2 GM/DL (3.2-5.2); BILIRUBIN,TOTAL 0.4 MG/DL (0.2-1.0); CREATININE FOR GFR 1.39 MG/DL (0.55-1.30); FREE T4 0.98 NG/DL (0.76-1.46); GLOMERULAR FILTRATION RATE 40.9 (>45); POTASSIUM SERUM 4.4 MEQ/L (3.5-5.1); THYROID STIMULATING HORMONE 1.04 uIU/ML (0.358-3.740); TOTAL PROTEIN 7.7 GM/DL (6.4-8.2)
== END ==
LOC: M WUC 11:12
PROVIDERS: ATTEND Internal Medicine Medical Oncology
DX: C67.9 Malignant neoplasm of bladder, unspecified (principal); N28.9 Disorder of kidney and ureter, unspecified

== ENCOUNTER → 2022-03-06 | Outpatient (CLI) | payer BC ==
[~2022-03-06] MED LIST changes: +GASTROGRAFIN SOLUTION 30ML (Q9963) As Ordered ONE
== END ==
LOC: M RAD 11:01
PROVIDERS: ATTEND Internal Medicine Medical Oncology
DX: C67.9 Malignant neoplasm of bladder, unspecified (principal); K76.89 Other specified diseases of liver; N28.1 Cyst of kidney, acquired; I70.0 Atherosclerosis of aorta; I25.10 Atherosclerotic heart disease of native coronary artery without angina pectoris; Z95.828 Presence of other vascular implants and grafts
CPT/HCPCS: 71250; 74176; Q9963

== ENCOUNTER → 2022-03-07 | Outpatient (CLI) | payer BC ==
[~2022-03-07] MED LIST changes: -GASTROGRAFIN SOLUTION 30ML (Q9963) As Ordered ONE
[2022-03-07 10:31] LABS: BASO # 0.1 10^3/uL (0.0-0.2); BASO % 1.4 % (0.0-1.0); EOS # 0.1 10^3/uL (0.0-0.5); EOS % 2.2 % (0.0-3.0); HEMATOCRIT 39.3 % (36.0-47.0); HEMOGLOBIN 12.9 g/dl (12.0-15.5); LYMPH # 1.9 10^3/uL (1.5-5.0); LYMPH % 29.1 % (24.0-44.0); MEAN CORPUSCULAR HEMOGLOBIN 31.9 pg (27.0-33.0); MEAN CORPUSCULAR HGB CONC 32.8 g/dl (32.0-36.5); MEAN CORPUSCULAR VOLUME 97.3 fl (80.0-96.0); MONO # 0.8 10^3/uL (0.0-0.8); MONO % 12.5 % (2.0-8.0); NEUTROPHILS # 3.5 10^3/uL (1.5-8.5); NEUTROPHILS % 54.3 % (36.0-66.0); PLATELET COUNT, AUTOMATED 409 10^3/uL (150-450); RED BLOOD COUNT 4.04 10^6/uL (4.00-5.40); WHITE BLOOD COUNT 6.5 10^3/uL (4.0-10.0)
[2022-03-07 10:43] LABS: ALBUMIN 4.1 GM/DL (3.2-5.2); BILIRUBIN,TOTAL 0.3 MG/DL (0.2-1.0); CALCIUM LEVEL 10.1 MG/DL (8.8-10.2); CREATININE FOR GFR 1.32 MG/DL (0.55-1.30); FREE T4 0.88 NG/DL (0.76-1.46); GLOMERULAR FILTRATION RATE 43.4 (>45); POTASSIUM SERUM 4.9 MEQ/L (3.5-5.1); THYROID STIMULATING HORMONE 1.58 uIU/ML (0.358-3.740); TOTAL PROTEIN 7.9 GM/DL (6.4-8.2)
== END ==
LOC: M WUC 07:53
PROVIDERS: ATTEND Internal Medicine Medical Oncology
DX: C67.9 Malignant neoplasm of bladder, unspecified (principal)

== ENCOUNTER → 2022-03-21 | Outpatient (CLI) | payer BC ==
[2022-03-21 16:24] LABS: BASO # 0.1 10^3/uL (0.0-0.2); EOS # 0.1 10^3/uL (0.0-0.5); EOS % 1.2 % (0.0-3.0); HEMATOCRIT 36.4 % (36.0-47.0); HEMOGLOBIN 11.9 g/dl (12.0-15.5); LYMPH # 2.2 10^3/uL (1.5-5.0); LYMPH % 31.6 % (24.0-44.0); MEAN CORPUSCULAR HEMOGLOBIN 31.7 pg (27.0-33.0); MEAN CORPUSCULAR HGB CONC 32.7 g/dl (32.0-36.5); MEAN CORPUSCULAR VOLUME 97.1 fl (80.0-96.0); MONO # 0.7 10^3/uL (0.0-0.8); MONO % 9.8 % (2.0-8.0); NEUTROPHILS # 3.9 10^3/uL (1.5-8.5); NEUTROPHILS % 56.1 % (36.0-66.0); PLATELET COUNT, AUTOMATED 384 10^3/uL (150-450); RED BLOOD COUNT 3.75 10^6/uL (4.00-5.40); WHITE BLOOD COUNT 6.9 10^3/uL (4.0-10.0)
[2022-03-21 16:47] LABS: ALBUMIN 3.9 GM/DL (3.2-5.2); BILIRUBIN,TOTAL 0.4 MG/DL (0.2-1.0); CALCIUM LEVEL 9.9 MG/DL (8.8-10.2); CREATININE FOR GFR 1.26 MG/DL (0.55-1.30); FREE T4 0.94 NG/DL (0.76-1.46); GLOMERULAR FILTRATION RATE 45.8 (>45); POTASSIUM SERUM 4.4 MEQ/L (3.5-5.1); THYROID STIMULATING HORMONE 0.75 uIU/ML (0.358-3.740); TOTAL PROTEIN 7.4 GM/DL (6.4-8.2)
== END ==
LOC: M WUC 11:17
PROVIDERS: ATTEND Internal Medicine Medical Oncology
DX: C67.9 Malignant neoplasm of bladder, unspecified (principal); N28.89 Other specified disorders of kidney and ureter

== ENCOUNTER → 2022-04-04 | Outpatient (CLI) | payer BC ==
[2022-04-04 13:24] LABS: HEMATOCRIT 39.5 % (36.0-47.0); HEMOGLOBIN 12.9 g/dl (12.0-15.5); MEAN CORPUSCULAR HEMOGLOBIN 31.9 pg (27.0-33.0); MEAN CORPUSCULAR HGB CONC 32.7 g/dl (32.0-36.5); MEAN CORPUSCULAR VOLUME 97.5 fl (80.0-96.0); PLATELET COUNT, AUTOMATED 403 10^3/uL (150-450); RED BLOOD COUNT 4.05 10^6/uL (4.00-5.40); WHITE BLOOD COUNT 9.3 10^3/uL (4.0-10.0)
[2022-04-04 13:58] LABS: ALBUMIN 4.6 GM/DL (3.2-5.2); BILIRUBIN,TOTAL 0.3 MG/DL (0.2-1.0); CREATININE FOR GFR 1.29 MG/DL (0.55-1.30); FREE T4 0.92 NG/DL (0.76-1.46); GLOMERULAR FILTRATION RATE 44.4 (>45); POTASSIUM SERUM 4.5 MEQ/L (3.5-5.1); THYROID STIMULATING HORMONE 0.93 uIU/ML (0.358-3.740); TOTAL PROTEIN 7.7 GM/DL (6.4-8.2)
[2022-04-05 09:18] LABS: BASO # 0.1 10^3/uL (0.0-0.2); BASO % 1.1 % (0.0-1.0); EOS # 0.1 10^3/uL (0.0-0.5); LYMPH # 2.2 10^3/uL (1.5-5.0); MONO # 0.9 10^3/uL (0.0-0.8); MONO % 9.4 % (2.0-8.0); NEUTROPHILS # 6.1 10^3/uL (1.5-8.5); NEUTROPHILS % 65.3 % (36.0-66.0)
== END ==
LOC: M WUC 09:38
PROVIDERS: ATTEND Internal Medicine Medical Oncology
DX: N28.89 Other specified disorders of kidney and ureter (principal); C67.9 Malignant neoplasm of bladder, unspecified

== ENCOUNTER → 2022-04-18 | Outpatient (CLI) | payer BC ==
[2022-04-18 16:15] LABS: BASO # 0.1 10^3/uL (0.0-0.2); EOS # 0.1 10^3/uL (0.0-0.5); HEMATOCRIT 38.1 % (36.0-47.0); HEMOGLOBIN 12.3 g/dl (12.0-15.5); LYMPH # 2.3 10^3/uL (1.5-5.0); LYMPH % 29.9 % (24.0-44.0); MEAN CORPUSCULAR HGB CONC 32.3 g/dl (32.0-36.5); MONO # 0.7 10^3/uL (0.0-0.8); MONO % 9.4 % (2.0-8.0); NEUTROPHILS # 4.5 10^3/uL (1.5-8.5); NEUTROPHILS % 58.4 % (36.0-66.0); PLATELET COUNT, AUTOMATED 409 10^3/uL (150-450); RED BLOOD COUNT 3.97 10^6/uL (4.00-5.40); WHITE BLOOD COUNT 7.8 10^3/uL (4.0-10.0)
[2022-04-18 16:36] LABS: ALBUMIN 4.1 GM/DL (3.2-5.2); BILIRUBIN,TOTAL 0.4 MG/DL (0.2-1.0); CALCIUM LEVEL 9.4 MG/DL (8.8-10.2); CREATININE FOR GFR 1.34 MG/DL (0.55-1.30); FREE T4 0.99 NG/DL (0.76-1.46); GLOMERULAR FILTRATION RATE 42.5 (>45); POTASSIUM SERUM 4.5 MEQ/L (3.5-5.1); THYROID STIMULATING HORMONE 0.794 uIU/ML (0.358-3.740); TOTAL PROTEIN 7.3 GM/DL (6.4-8.2)
== END ==
LOC: M WUC 10:58
PROVIDERS: ATTEND Internal Medicine Medical Oncology
DX: C67.9 Malignant neoplasm of bladder, unspecified (principal); N28.89 Other specified disorders of kidney and ureter

== ENCOUNTER → 2022-05-02 | Outpatient (CLI) | payer BC ==
[2022-05-02 16:15] LABS: BASO # 0.1 10^3/uL (0.0-0.2); BASO % 1.3 % (0.0-1.0); EOS # 0.1 10^3/uL (0.0-0.5); EOS % 1.1 % (0.0-3.0); HEMATOCRIT 37.3 % (36.0-47.0); HEMOGLOBIN 12.2 g/dl (12.0-15.5); LYMPH # 2.2 10^3/uL (1.5-5.0); LYMPH % 30.8 % (24.0-44.0); MEAN CORPUSCULAR HEMOGLOBIN 31.5 pg (27.0-33.0); MEAN CORPUSCULAR HGB CONC 32.7 g/dl (32.0-36.5); MEAN CORPUSCULAR VOLUME 96.4 fl (80.0-96.0); MONO # 0.7 10^3/uL (0.0-0.8); MONO % 9.4 % (2.0-8.0); NEUTROPHILS % 57.3 % (36.0-66.0); PLATELET COUNT, AUTOMATED 390 10^3/uL (150-450); RED BLOOD COUNT 3.87 10^6/uL (4.00-5.40)
[2022-05-02 16:52] LABS: CALCIUM LEVEL 9.3 MG/DL (8.8-10.2); CREATININE FOR GFR 1.28 MG/DL (0.55-1.30); GLOMERULAR FILTRATION RATE 44.8 (>45); POTASSIUM SERUM 4.5 MEQ/L (3.5-5.1)
[2022-05-02 16:53] LABS: BILIRUBIN,TOTAL 0.3 MG/DL (0.2-1.0); FREE T4 0.91 NG/DL (0.76-1.46); THYROID STIMULATING HORMONE 0.975 uIU/ML (0.358-3.740); TOTAL PROTEIN 7.6 GM/DL (6.4-8.2)
== END ==
LOC: M WUC 11:16
PROVIDERS: ATTEND Internal Medicine Medical Oncology
DX: C67.9 Malignant neoplasm of bladder, unspecified (principal)

== ENCOUNTER → 2022-05-14 | Outpatient (CLI) | payer BC ==
[2022-05-14 15:13] LABS: BASO # 0.1 10^3/uL (0.0-0.2); BASO % 1.1 % (0.0-1.0); EOS # 0.1 10^3/uL (0.0-0.5); EOS % 1.6 % (0.0-3.0); HEMATOCRIT 39.4 % (36.0-47.0); LYMPH # 2.4 10^3/uL (1.5-5.0); LYMPH % 32.2 % (24.0-44.0); MEAN CORPUSCULAR HEMOGLOBIN 30.9 pg (27.0-33.0); MEAN CORPUSCULAR VOLUME 93.6 fl (80.0-96.0); MONO # 0.7 10^3/uL (0.0-0.8); MONO % 9.3 % (2.0-8.0); NEUTROPHILS # 4.2 10^3/uL (1.5-8.5); NEUTROPHILS % 55.7 % (36.0-66.0); PLATELET COUNT, AUTOMATED 418 10^3/uL (150-450); RED BLOOD COUNT 4.21 10^6/uL (4.00-5.40); WHITE BLOOD COUNT 7.5 10^3/uL (4.0-10.0)
[2022-05-14 16:16] LABS: ALBUMIN 4.2 GM/DL (3.2-5.2); BILIRUBIN,TOTAL 0.3 MG/DL (0.2-1.0); CALCIUM LEVEL 9.4 MG/DL (8.8-10.2); CREATININE FOR GFR 1.27 MG/DL (0.55-1.30); FREE T4 0.94 NG/DL (0.76-1.46); GLOMERULAR FILTRATION RATE 45.2 (>45); POTASSIUM SERUM 4.7 MEQ/L (3.5-5.1); THYROID STIMULATING HORMONE 1.05 uIU/ML (0.358-3.740); TOTAL PROTEIN 7.7 GM/DL (6.4-8.2)
== END ==
LOC: M WUC 11:38
PROVIDERS: ATTEND Internal Medicine Medical Oncology
DX: C67.9 Malignant neoplasm of bladder, unspecified (principal); N28.9 Disorder of kidney and ureter, unspecified

== ENCOUNTER → 2022-06-13 | Outpatient (CLI) | payer BC ==
[2022-06-13 10:58] LABS: BASO # 0.1 10^3/uL (0.0-0.2); EOS # 0.1 10^3/uL (0.0-0.5); EOS % 1.5 % (0.0-3.0); HEMATOCRIT 40.5 % (36.0-47.0); HEMOGLOBIN 13.2 g/dl (12.0-15.5); LYMPH # 2.1 10^3/uL (1.5-5.0); LYMPH % 28.6 % (24.0-44.0); MEAN CORPUSCULAR HEMOGLOBIN 30.8 pg (27.0-33.0); MEAN CORPUSCULAR HGB CONC 32.6 g/dl (32.0-36.5); MEAN CORPUSCULAR VOLUME 94.4 fl (80.0-96.0); MONO # 0.8 10^3/uL (0.0-0.8); MONO % 11.7 % (2.0-8.0); NEUTROPHILS # 4.1 10^3/uL (1.5-8.5); NEUTROPHILS % 56.9 % (36.0-66.0); PLATELET COUNT, AUTOMATED 469 10^3/uL (150-450); RED BLOOD COUNT 4.29 10^6/uL (4.00-5.40); WHITE BLOOD COUNT 7.2 10^3/uL (4.0-10.0)
[2022-06-13 12:02] LABS: BILIRUBIN,TOTAL 0.5 MG/DL (0.2-1.0); CALCIUM LEVEL 9.3 MG/DL (8.8-10.2); CREATININE FOR GFR 1.37 MG/DL (0.55-1.30); FREE T4 1.01 NG/DL (0.76-1.46); GLOMERULAR FILTRATION RATE 41.5 (>45); POTASSIUM SERUM 4.7 MEQ/L (3.5-5.1); THYROID STIMULATING HORMONE 1.16 uIU/ML (0.358-3.740); TOTAL PROTEIN 7.8 GM/DL (6.4-8.2)
== END ==
LOC: M WUC 07:37
PROVIDERS: ATTEND Internal Medicine Medical Oncology
DX: C67.9 Malignant neoplasm of bladder, unspecified (principal); N28.89 Other specified disorders of kidney and ureter

== ENCOUNTER → 2022-06-26 | Outpatient (CLI) | payer BC ==
[2022-06-26 16:38] LABS: BASO # 0.1 10^3/uL (0.0-0.2); EOS # 0.1 10^3/uL (0.0-0.5); HEMATOCRIT 39.5 % (36.0-47.0); HEMOGLOBIN 12.8 g/dl (12.0-15.5); LYMPH # 2.4 10^3/uL (1.5-5.0); LYMPH % 31.1 % (24.0-44.0); MEAN CORPUSCULAR HEMOGLOBIN 30.8 pg (27.0-33.0); MEAN CORPUSCULAR HGB CONC 32.4 g/dl (32.0-36.5); MEAN CORPUSCULAR VOLUME 95.2 fl (80.0-96.0); MONO # 0.7 10^3/uL (0.0-0.8); MONO % 8.7 % (2.0-8.0); NEUTROPHILS # 4.4 10^3/uL (1.5-8.5); NEUTROPHILS % 57.9 % (36.0-66.0); PLATELET COUNT, AUTOMATED 404 10^3/uL (150-450); RED BLOOD COUNT 4.15 10^6/uL (4.00-5.40); WHITE BLOOD COUNT 7.6 10^3/uL (4.0-10.0)
[2022-06-26 17:31] LABS: ALBUMIN 4.2 GM/DL (3.2-5.2); BILIRUBIN,TOTAL 0.4 MG/DL (0.2-1.0); CALCIUM LEVEL 9.6 MG/DL (8.8-10.2); CREATININE FOR GFR 1.29 MG/DL (0.55-1.30); FREE T4 0.91 NG/DL (0.76-1.46); GLOMERULAR FILTRATION RATE 44.4 (>45); POTASSIUM SERUM 4.5 MEQ/L (3.5-5.1); THYROID STIMULATING HORMONE 1.19 uIU/ML (0.358-3.740)
== END ==
LOC: M WUC 11:47
PROVIDERS: ATTEND Nurse Practitioner
DX: C67.9 Malignant neoplasm of bladder, unspecified (principal)

== ENCOUNTER → 2022-07-11 | Outpatient (CLI) | payer BC ==
[2022-07-11 12:22] LABS: BASO # 0.1 10^3/uL (0.0-0.2); BASO % 1.2 % (0.0-1.0); EOS # 0.1 10^3/uL (0.0-0.5); EOS % 1.2 % (0.0-3.0); HEMATOCRIT 36.8 % (36.0-47.0); LYMPH # 2.7 10^3/uL (1.5-5.0); LYMPH % 30.8 % (24.0-44.0); MEAN CORPUSCULAR HEMOGLOBIN 31.3 pg (27.0-33.0); MEAN CORPUSCULAR HGB CONC 32.6 g/dl (32.0-36.5); MEAN CORPUSCULAR VOLUME 96.1 fl (80.0-96.0); MONO # 0.8 10^3/uL (0.0-0.8); MONO % 9.5 % (2.0-8.0); NEUTROPHILS # 4.9 10^3/uL (1.5-8.5); NEUTROPHILS % 56.7 % (36.0-66.0); PLATELET COUNT, AUTOMATED 415 10^3/uL (150-450); RED BLOOD COUNT 3.83 10^6/uL (4.00-5.40); WHITE BLOOD COUNT 8.6 10^3/uL (4.0-10.0)
[2022-07-11 13:37] LABS: ALBUMIN 3.9 GM/DL (3.2-5.2); BILIRUBIN,TOTAL 0.2 MG/DL (0.2-1.0); CALCIUM LEVEL 9.3 MG/DL (8.8-10.2); CREATININE FOR GFR 1.19 MG/DL (0.55-1.30); FREE T4 0.88 NG/DL (0.76-1.46); GLOMERULAR FILTRATION RATE 48.8 (>45); POTASSIUM SERUM 4.8 MEQ/L (3.5-5.1); THYROID STIMULATING HORMONE 1.06 uIU/ML (0.358-3.740); TOTAL PROTEIN 7.3 GM/DL (6.4-8.2)
== END ==
LOC: M WUC 10:39
PROVIDERS: ATTEND Nurse Practitioner
DX: C67.9 Malignant neoplasm of bladder, unspecified (principal)

== ENCOUNTER → 2022-07-19 | Outpatient (CLI) | payer BC ==
[~2022-07-19] MED LIST changes: +GASTROGRAFIN SOLUTION 30ML (Q9963) As Ordered ONE
== END ==
LOC: M RAD 06:13
PROVIDERS: ATTEND Internal Medicine Medical Oncology
DX: C67.9 Malignant neoplasm of bladder, unspecified (principal); K76.89 Other specified diseases of liver; J98.11 Atelectasis; I70.0 Atherosclerosis of aorta; N28.1 Cyst of kidney, acquired; M51.36 Other intervertebral disc degeneration, lumbar region; M51.37 Other intervertebral disc degeneration, lumbosacral region; Z95.828 Presence of other vascular implants and grafts; M51.44 Schmorl's nodes, thoracic region; I25.10 Atherosclerotic heart disease of native coronary artery without angina pectoris
CPT/HCPCS: 71250; 74176; Q9963

== ENCOUNTER → 2022-07-25 | Outpatient (CLI) | payer BC ==
[~2022-07-25] MED LIST changes: -GASTROGRAFIN SOLUTION 30ML (Q9963) As Ordered ONE
[2022-07-25 10:45] LABS: BASO # 0.1 10^3/uL (0.0-0.2); BASO % 1.6 % (0.0-1.0); EOS # 0.1 10^3/uL (0.0-0.5); EOS % 1.9 % (0.0-3.0); HEMATOCRIT 39.2 % (36.0-47.0); HEMOGLOBIN 12.5 g/dl (12.0-15.5); LYMPH # 1.6 10^3/uL (1.5-5.0); MEAN CORPUSCULAR HEMOGLOBIN 30.9 pg (27.0-33.0); MEAN CORPUSCULAR HGB CONC 31.9 g/dl (32.0-36.5); MONO # 0.6 10^3/uL (0.0-0.8); MONO % 9.5 % (2.0-8.0); NEUTROPHILS # 4.2 10^3/uL (1.5-8.5); NEUTROPHILS % 62.6 % (36.0-66.0); PLATELET COUNT, AUTOMATED 445 10^3/uL (150-450); RED BLOOD COUNT 4.04 10^6/uL (4.00-5.40); WHITE BLOOD COUNT 6.7 10^3/uL (4.0-10.0)
[2022-07-25 12:12] LABS: ALBUMIN 4.2 GM/DL (3.2-5.2); BILIRUBIN,TOTAL 0.3 MG/DL (0.2-1.0); CALCIUM LEVEL 9.5 MG/DL (8.8-10.2); CREATININE FOR GFR 1.42 MG/DL (0.55-1.30); FREE T4 0.84 NG/DL (0.76-1.46); GLOMERULAR FILTRATION RATE 39.8 (>45); POTASSIUM SERUM 4.5 MEQ/L (3.5-5.1); THYROID STIMULATING HORMONE 1.96 uIU/ML (0.358-3.740); TOTAL PROTEIN 7.8 GM/DL (6.4-8.2)
== END ==
LOC: M WUC 07:31
PROVIDERS: ATTEND Nurse Practitioner
DX: C67.9 Malignant neoplasm of bladder, unspecified (principal)

== ENCOUNTER → 2022-08-08 | Outpatient (REF) | payer BC ==
[2022-08-08 11:40] LABS: CHOLESTEROL RISK RATIO 3.865 (<5)
== END ==
LOC: M WUC 10:07
PROVIDERS: ATTEND Physician Assistant
DX: E78.2 Mixed hyperlipidemia (principal)

== ENCOUNTER → 2022-08-08 | Outpatient (REF) | payer BC ==
[2022-08-08 11:09] LABS: BASO # 0.1 10^3/uL (0.0-0.2); BASO % 0.9 % (0.0-1.0); EOS # 0.1 10^3/uL (0.0-0.5); EOS % 1.2 % (0.0-3.0); HEMATOCRIT 40.3 % (36.0-47.0); HEMOGLOBIN 12.9 g/dl (12.0-15.5); LYMPH # 1.9 10^3/uL (1.5-5.0); LYMPH % 22.1 % (24.0-44.0); MEAN CORPUSCULAR HEMOGLOBIN 30.9 pg (27.0-33.0); MEAN CORPUSCULAR VOLUME 96.6 fl (80.0-96.0); MONO # 0.8 10^3/uL (0.0-0.8); NEUTROPHILS # 5.7 10^3/uL (1.5-8.5); PLATELET COUNT, AUTOMATED 433 10^3/uL (150-450); RED BLOOD COUNT 4.17 10^6/uL (4.00-5.40); WHITE BLOOD COUNT 8.7 10^3/uL (4.0-10.0)
[2022-08-08 11:49] LABS: BILIRUBIN,TOTAL 0.3 MG/DL (0.2-1.0); CALCIUM LEVEL 9.4 MG/DL (8.8-10.2); CREATININE FOR GFR 1.28 MG/DL (0.55-1.30); FREE T4 0.98 NG/DL (0.76-1.46); GLOMERULAR FILTRATION RATE 44.8 (>45); POTASSIUM SERUM 4.7 MEQ/L (3.5-5.1); THYROID STIMULATING HORMONE 0.813 uIU/ML (0.358-3.740); TOTAL PROTEIN 7.5 GM/DL (6.4-8.2)
== END ==
LOC: M WUC 10:05
PROVIDERS: ATTEND Nurse Practitioner
DX: C67.9 Malignant neoplasm of bladder, unspecified (principal)

== ENCOUNTER → 2022-08-15 | Outpatient (CLI) | payer BC | LOC: M WHC 12:50 | PROVIDERS: ATTEND Physician Assistant | DX: Z13.820 Encounter for screening for osteoporosis (principal); M85.89 Other specified disorders of bone density and structure, multiple sites ==

== ENCOUNTER → 2022-08-22 | Outpatient (CLI) | payer BC ==
[2022-08-22 10:57] LABS: BASO # 0.1 10^3/uL (0.0-0.2); BASO % 1.5 % (0.0-1.0); EOS # 0.1 10^3/uL (0.0-0.5); EOS % 1.3 % (0.0-3.0); HEMATOCRIT 41.6 % (36.0-47.0); HEMOGLOBIN 13.2 g/dl (12.0-15.5); LYMPH # 1.8 10^3/uL (1.5-5.0); MEAN CORPUSCULAR HEMOGLOBIN 30.6 pg (27.0-33.0); MEAN CORPUSCULAR HGB CONC 31.7 g/dl (32.0-36.5); MEAN CORPUSCULAR VOLUME 96.5 fl (80.0-96.0); MONO # 0.9 10^3/uL (0.0-0.8); MONO % 10.1 % (2.0-8.0); NEUTROPHILS # 5.7 10^3/uL (1.5-8.5); NEUTROPHILS % 65.9 % (36.0-66.0); PLATELET COUNT, AUTOMATED 454 10^3/uL (150-450); RED BLOOD COUNT 4.31 10^6/uL (4.00-5.40); WHITE BLOOD COUNT 8.7 10^3/uL (4.0-10.0)
[2022-08-22 12:12] LABS: ALBUMIN 4.3 G/DL (3.2-5.2); BILIRUBIN,TOTAL 0.4 MG/DL (0.3-1.2); CALCIUM LEVEL 9.3 MG/DL (8.3-10.6); CREATININE FOR GFR 1.14 MG/DL (0.55-1.30); FREE T4 1.05 NG/DL (0.89-1.76); GLOMERULAR FILTRATION RATE 51.2 (>45); POTASSIUM SERUM 4.9 MMOL/L (3.5-5.1); THYROID STIMULATING HORMONE 1.67 uIU/ML (0.55-4.78); TOTAL PROTEIN 7.6 G/DL (5.7-8.2)
== END ==
LOC: M WUC 08:15
PROVIDERS: ATTEND Nurse Practitioner
DX: C67.9 Malignant neoplasm of bladder, unspecified (principal)

== ENCOUNTER → 2022-09-05 | Outpatient (CLI) | payer BC ==
[2022-09-05 11:58] LABS: BASO # 0.1 10^3/uL (0.0-0.2); BASO % 1.7 % (0.0-1.0); EOS # 0.1 10^3/uL (0.0-0.5); EOS % 1.8 % (0.0-3.0); HEMOGLOBIN 12.7 g/dl (12.0-15.5); LYMPH # 1.9 10^3/uL (1.5-5.0); LYMPH % 26.6 % (24.0-44.0); MEAN CORPUSCULAR HEMOGLOBIN 30.2 pg (27.0-33.0); MEAN CORPUSCULAR VOLUME 97.4 fl (80.0-96.0); MONO # 0.8 10^3/uL (0.0-0.8); MONO % 11.4 % (2.0-8.0); NEUTROPHILS # 4.1 10^3/uL (1.5-8.5); NEUTROPHILS % 58.2 % (36.0-66.0); PLATELET COUNT, AUTOMATED 416 10^3/uL (150-450); RED BLOOD COUNT 4.21 10^6/uL (4.00-5.40); WHITE BLOOD COUNT 7.1 10^3/uL (4.0-10.0)
[2022-09-05 12:39] LABS: ALBUMIN 4.2 G/DL (3.2-5.2); BILIRUBIN,TOTAL 0.2 MG/DL (0.3-1.2); CALCIUM LEVEL 9.7 MG/DL (8.3-10.6); CREATININE FOR GFR 1.17 MG/DL (0.55-1.30); GLOMERULAR FILTRATION RATE 49.7 (>45); POTASSIUM SERUM 4.9 MMOL/L (3.5-5.1); TOTAL PROTEIN 7.5 G/DL (5.7-8.2)
[2022-09-05 12:43] LABS: FREE T4 1.05 NG/DL (0.89-1.76)
[2022-09-05 12:44] LABS: THYROID STIMULATING HORMONE 1.067 uIU/ML (0.55-4.78)
== END ==
LOC: M WUC 07:49
PROVIDERS: ATTEND Nurse Practitioner
DX: C67.9 Malignant neoplasm of bladder, unspecified (principal)

== ENCOUNTER → 2022-09-17 | Outpatient (CLI) | payer BC ==
[2022-09-17 17:39] LABS: BASO # 0.1 10^3/uL (0.0-0.2); BASO % 1.3 % (0.0-1.0); EOS # 0.1 10^3/uL (0.0-0.5); EOS % 0.9 % (0.0-3.0); HEMATOCRIT 40.4 % (36.0-47.0); LYMPH # 2.4 10^3/uL (1.5-5.0); LYMPH % 31.3 % (24.0-44.0); MEAN CORPUSCULAR HGB CONC 32.2 g/dl (32.0-36.5); MEAN CORPUSCULAR VOLUME 96.2 fl (80.0-96.0); MONO # 0.7 10^3/uL (0.0-0.8); MONO % 9.4 % (2.0-8.0); NEUTROPHILS # 4.4 10^3/uL (1.5-8.5); NEUTROPHILS % 56.7 % (36.0-66.0); PLATELET COUNT, AUTOMATED 443 10^3/uL (150-450); WHITE BLOOD COUNT 7.7 10^3/uL (4.0-10.0)
[2022-09-17 18:11] LABS: ALBUMIN 4.3 G/DL (3.2-5.2); BILIRUBIN,TOTAL 0.4 MG/DL (0.3-1.2); CREATININE FOR GFR 1.25 MG/DL (0.55-1.30); GLOMERULAR FILTRATION RATE 46.1 (>45); POTASSIUM SERUM 4.4 MMOL/L (3.5-5.1); TOTAL PROTEIN 7.9 G/DL (5.7-8.2)
[2022-09-17 18:12] LABS: FREE T4 1.1 NG/DL (0.89-1.76); THYROID STIMULATING HORMONE 1.005 uIU/ML (0.55-4.78)
== END ==
LOC: M WUC 13:29
PROVIDERS: ATTEND Nurse Practitioner
DX: C67.9 Malignant neoplasm of bladder, unspecified (principal)

== ENCOUNTER → 2022-10-03 | Outpatient (REF) | payer BC ==
[2022-10-03 10:11] LABS: BASO # 0.1 10^3/uL (0.0-0.2); BASO % 1.3 % (0.0-1.0); EOS # 0.1 10^3/uL (0.0-0.5); EOS % 1.4 % (0.0-3.0); HEMATOCRIT 40.3 % (36.0-47.0); HEMOGLOBIN 12.8 g/dl (12.0-15.5); LYMPH # 1.9 10^3/uL (1.5-5.0); LYMPH % 27.5 % (24.0-44.0); MEAN CORPUSCULAR HEMOGLOBIN 30.7 pg (27.0-33.0); MEAN CORPUSCULAR HGB CONC 31.8 g/dl (32.0-36.5); MEAN CORPUSCULAR VOLUME 96.6 fl (80.0-96.0); MONO # 0.8 10^3/uL (0.0-0.8); MONO % 11.3 % (2.0-8.0); NEUTROPHILS # 4.1 10^3/uL (1.5-8.5); NEUTROPHILS % 58.1 % (36.0-66.0); PLATELET COUNT, AUTOMATED 429 10^3/uL (150-450); RED BLOOD COUNT 4.17 10^6/uL (4.00-5.40)
[2022-10-03 10:40] LABS: ALBUMIN 3.9 G/DL (3.2-5.2); BILIRUBIN,TOTAL 0.3 MG/DL (0.3-1.2); CREATININE FOR GFR 1.26 MG/DL (0.55-1.30); GLOMERULAR FILTRATION RATE 45.7 (>45); POTASSIUM SERUM 4.9 MMOL/L (3.5-5.1); TOTAL PROTEIN 7.3 G/DL (5.7-8.2)
[2022-10-03 10:42] LABS: FREE T4 0.99 NG/DL (0.89-1.76)
[2022-10-03 10:43] LABS: THYROID STIMULATING HORMONE 0.842 uIU/ML (0.55-4.78)
== END ==
LOC: M LABWUC 09:17
PROVIDERS: ATTEND Nurse Practitioner
DX: C79.11 Secondary malignant neoplasm of bladder (principal)

== ENCOUNTER → 2022-10-24 | Outpatient (CLI) | payer BC ==
[~2022-10-24] MED LIST changes: +PRAV40TA2
[2022-10-24 09:49] LABS: BASO # 0.1 10^3/uL (0.0-0.2); BASO % 1.2 % (0.0-1.0); EOS # 0.1 10^3/uL (0.0-0.5); EOS % 1.7 % (0.0-3.0); HEMATOCRIT 41.3 % (36.0-47.0); HEMOGLOBIN 13.3 g/dl (12.0-15.5); LYMPH # 1.9 10^3/uL (1.5-5.0); LYMPH % 29.5 % (24.0-44.0); MEAN CORPUSCULAR HEMOGLOBIN 31.1 pg (27.0-33.0); MEAN CORPUSCULAR HGB CONC 32.2 g/dl (32.0-36.5); MEAN CORPUSCULAR VOLUME 96.5 fl (80.0-96.0); MONO # 0.7 10^3/uL (0.0-0.8); NEUTROPHILS # 3.7 10^3/uL (1.5-8.5); NEUTROPHILS % 57.3 % (36.0-66.0); PLATELET COUNT, AUTOMATED 430 10^3/uL (150-450); RED BLOOD COUNT 4.28 10^6/uL (4.00-5.40); WHITE BLOOD COUNT 6.5 10^3/uL (4.0-10.0)
[2022-10-24 10:22] LABS: ALBUMIN 4.2 G/DL (3.2-5.2); BILIRUBIN,TOTAL 0.3 MG/DL (0.3-1.2); CALCIUM LEVEL 9.8 MG/DL (8.3-10.6); CREATININE FOR GFR 1.21 MG/DL (0.55-1.30); GLOMERULAR FILTRATION RATE 47.8 (>45); POTASSIUM SERUM 4.7 MMOL/L (3.5-5.1); TOTAL PROTEIN 7.8 G/DL (5.7-8.2)
[2022-10-24 11:03] LABS: FREE T4 1.03 NG/DL (0.89-1.76); THYROID STIMULATING HORMONE 0.869 uIU/ML (0.55-4.78)
== END ==
LOC: M WUC 07:54
PROVIDERS: ATTEND Nurse Practitioner
DX: C67.9 Malignant neoplasm of bladder, unspecified (principal)

== ENCOUNTER → 2022-11-06 | Outpatient (CLI) | payer BC ==
[2022-11-06 10:14] LABS: BASO # 0.1 10^3/uL (0.0-0.2); BASO % 1.3 % (0.0-1.0); EOS # 0.1 10^3/uL (0.0-0.5); EOS % 1.1 % (0.0-3.0); HEMATOCRIT 38.6 % (36.0-47.0); HEMOGLOBIN 12.6 g/dl (12.0-15.5); LYMPH # 1.7 10^3/uL (1.5-5.0); LYMPH % 21.8 % (24.0-44.0); MEAN CORPUSCULAR HEMOGLOBIN 31.3 pg (27.0-33.0); MEAN CORPUSCULAR HGB CONC 32.6 g/dl (32.0-36.5); MONO # 0.8 10^3/uL (0.0-0.8); MONO % 10.2 % (2.0-8.0); NEUTROPHILS # 5.1 10^3/uL (1.5-8.5); NEUTROPHILS % 65.3 % (36.0-66.0); PLATELET COUNT, AUTOMATED 398 10^3/uL (150-450); RED BLOOD COUNT 4.02 10^6/uL (4.00-5.40); WHITE BLOOD COUNT 7.9 10^3/uL (4.0-10.0)
[2022-11-06 10:16] LABS: ALBUMIN 4.1 G/DL (3.2-5.2); BILIRUBIN,TOTAL 0.3 MG/DL (0.3-1.2); CALCIUM LEVEL 9.7 MG/DL (8.3-10.6); CREATININE FOR GFR 1.21 MG/DL (0.55-1.30); GLOMERULAR FILTRATION RATE 47.8 (>45); POTASSIUM SERUM 4.6 MMOL/L (3.5-5.1); TOTAL PROTEIN 7.4 G/DL (5.7-8.2)
[2022-11-06 11:43] LABS: FREE T4 1.11 NG/DL (0.89-1.76); THYROID STIMULATING HORMONE 1.141 uIU/ML (0.55-4.78)
== END ==
LOC: M WUC 07:51
PROVIDERS: ATTEND Nurse Practitioner
DX: C67.9 Malignant neoplasm of bladder, unspecified (principal)

== ENCOUNTER → 2022-11-13 | Outpatient (CLI) | payer BC | LOC: M WUC 09:54 | PROVIDERS: ATTEND Physician Assistant | DX: S52.531A Colles' fracture of right radius, initial encounter for closed fracture (principal); S52.611A Displaced fracture of right ulna styloid process, initial encounter for closed fracture; W19.XXXA Unspecified fall, initial encounter; Y92.89 Other specified places as the place of occurrence of the external cause; Y93.89 Activity, other specified; Y99.8 Other external cause status ==

== ENCOUNTER → 2022-11-21 | Outpatient (REF) | payer BC ==
[2022-11-21 12:22] LABS: BASO # 0.1 10^3/uL (0.0-0.2); BASO % 1.1 % (0.0-1.0); EOS # 0.1 10^3/uL (0.0-0.5); EOS % 1.3 % (0.0-3.0); HEMATOCRIT 38.9 % (36.0-47.0); HEMOGLOBIN 12.6 g/dl (12.0-15.5); LYMPH # 2.1 10^3/uL (1.5-5.0); LYMPH % 27.3 % (24.0-44.0); MEAN CORPUSCULAR HEMOGLOBIN 30.8 pg (27.0-33.0); MEAN CORPUSCULAR HGB CONC 32.4 g/dl (32.0-36.5); MEAN CORPUSCULAR VOLUME 95.1 fl (80.0-96.0); MONO # 0.8 10^3/uL (0.0-0.8); MONO % 10.5 % (2.0-8.0); NEUTROPHILS # 4.5 10^3/uL (1.5-8.5); NEUTROPHILS % 59.5 % (36.0-66.0); PLATELET COUNT, AUTOMATED 459 10^3/uL (150-450); RED BLOOD COUNT 4.09 10^6/uL (4.00-5.40); WHITE BLOOD COUNT 7.6 10^3/uL (4.0-10.0)
[2022-11-21 13:06] LABS: ALBUMIN 4.2 G/DL (3.2-5.2); BILIRUBIN,TOTAL 0.4 MG/DL (0.3-1.2); CREATININE FOR GFR 1.22 MG/DL (0.55-1.30); FREE T4 1.13 NG/DL (0.89-1.76); GLOMERULAR FILTRATION RATE 47.4 (>45); POTASSIUM SERUM 4.9 MMOL/L (3.5-5.1); THYROID STIMULATING HORMONE 1.065 uIU/ML (0.55-4.78); TOTAL PROTEIN 7.4 G/DL (5.7-8.2)
== END ==
LOC: M LABDRAWC 11:13 → M LABWUC 11:13
PROVIDERS: ATTEND Nurse Practitioner
DX: C67.9 Malignant neoplasm of bladder, unspecified (principal)

== ENCOUNTER → 2022-11-27 | Outpatient (CLI) | payer BC ==
[2022-11-27 12:28] LABS: BASO # 0.1 10^3/uL (0.0-0.2); BASO % 1.1 % (0.0-1.0); EOS # 0.1 10^3/uL (0.0-0.5); EOS % 0.6 % (0.0-3.0); HEMATOCRIT 38.4 % (36.0-47.0); HEMOGLOBIN 12.4 g/dl (12.0-15.5); LYMPH # 2.1 10^3/uL (1.5-5.0); LYMPH % 24.7 % (24.0-44.0); MEAN CORPUSCULAR HEMOGLOBIN 30.8 pg (27.0-33.0); MEAN CORPUSCULAR HGB CONC 32.3 g/dl (32.0-36.5); MEAN CORPUSCULAR VOLUME 95.3 fl (80.0-96.0); MONO # 0.7 10^3/uL (0.0-0.8); NEUTROPHILS # 5.5 10^3/uL (1.5-8.5); NEUTROPHILS % 65.4 % (36.0-66.0); PLATELET COUNT, AUTOMATED 471 10^3/uL (150-450); RED BLOOD COUNT 4.03 10^6/uL (4.00-5.40); WHITE BLOOD COUNT 8.4 10^3/uL (4.0-10.0)
[2022-11-27 13:02] LABS: BILIRUBIN,TOTAL 0.4 MG/DL (0.3-1.2); CALCIUM LEVEL 9.8 MG/DL (8.3-10.6); CREATININE FOR GFR 1.15 MG/DL (0.55-1.30); FREE T4 1.1 NG/DL (0.89-1.76); GLOMERULAR FILTRATION RATE 50.7 (>45); POTASSIUM SERUM 4.7 MMOL/L (3.5-5.1); THYROID STIMULATING HORMONE 0.844 uIU/ML (0.55-4.78)
[2022-11-27 18:38] LABS: TOTAL PROTEIN 7.4 G/DL (5.7-8.2)
== END ==
LOC: M WUC 10:33
PROVIDERS: ATTEND Nurse Practitioner
DX: C67.9 Malignant neoplasm of bladder, unspecified (principal)

== ENCOUNTER → 2022-12-19 | Outpatient (CLI) | payer BC ==
[2022-12-19 10:11] LABS: BASO # 0.1 10^3/uL (0.0-0.2); BASO % 1.3 % (0.0-1.0); EOS # 0.1 10^3/uL (0.0-0.5); EOS % 1.3 % (0.0-3.0); HEMATOCRIT 39.9 % (36.0-47.0); HEMOGLOBIN 12.8 g/dl (12.0-15.5); LYMPH # 1.9 10^3/uL (1.5-5.0); LYMPH % 27.7 % (24.0-44.0); MEAN CORPUSCULAR HGB CONC 32.1 g/dl (32.0-36.5); MEAN CORPUSCULAR VOLUME 96.6 fl (80.0-96.0); MONO # 0.7 10^3/uL (0.0-0.8); MONO % 10.2 % (2.0-8.0); NEUTROPHILS % 59.4 % (36.0-66.0); PLATELET COUNT, AUTOMATED 427 10^3/uL (150-450); RED BLOOD COUNT 4.13 10^6/uL (4.00-5.40); WHITE BLOOD COUNT 6.8 10^3/uL (4.0-10.0)
[2022-12-19 10:41] LABS: ALBUMIN 4.2 G/DL (3.2-5.2); BILIRUBIN,TOTAL 0.3 MG/DL (0.3-1.2); CALCIUM LEVEL 9.5 MG/DL (8.3-10.6); CREATININE FOR GFR 1.07 MG/DL (0.55-1.30); FREE T4 0.95 NG/DL (0.89-1.76); GLOMERULAR FILTRATION RATE 55.1 (>45); POTASSIUM SERUM 4.7 MMOL/L (3.5-5.1); THYROID STIMULATING HORMONE 1.043 uIU/ML (0.55-4.78); TOTAL PROTEIN 7.3 G/DL (5.7-8.2)
== END ==
LOC: M WUC 08:00
PROVIDERS: ATTEND Nurse Practitioner
DX: C67.9 Malignant neoplasm of bladder, unspecified (principal)

== ENCOUNTER → 2023-01-02 | Outpatient (CLI) | payer BC ==
[2023-01-02 11:01] LABS: BASO # 0.1 10^3/uL (0.0-0.2); BASO % 1.4 % (0.0-1.0); EOS # 0.1 10^3/uL (0.0-0.5); EOS % 0.9 % (0.0-3.0); HEMATOCRIT 40.4 % (36.0-47.0); HEMOGLOBIN 12.8 g/dl (12.0-15.5); LYMPH # 1.4 10^3/uL (1.5-5.0); LYMPH % 24.2 % (24.0-44.0); MEAN CORPUSCULAR HEMOGLOBIN 30.8 pg (27.0-33.0); MEAN CORPUSCULAR HGB CONC 31.7 g/dl (32.0-36.5); MEAN CORPUSCULAR VOLUME 97.3 fl (80.0-96.0); MONO # 0.9 10^3/uL (0.0-0.8); MONO % 15.3 % (2.0-8.0); NEUTROPHILS # 3.4 10^3/uL (1.5-8.5); PLATELET COUNT, AUTOMATED 415 10^3/uL (150-450); RED BLOOD COUNT 4.15 10^6/uL (4.00-5.40); WHITE BLOOD COUNT 5.8 10^3/uL (4.0-10.0)
[2023-01-02 11:17] LABS: FREE T4 0.96 NG/DL (0.89-1.76)
[2023-01-02 11:18] LABS: ALBUMIN 4.2 G/DL (3.2-5.2); BILIRUBIN,TOTAL 0.3 MG/DL (0.3-1.2); CALCIUM LEVEL 9.6 MG/DL (8.3-10.6); CREATININE FOR GFR 1.1 MG/DL (0.55-1.30); GLOMERULAR FILTRATION RATE 53.4 (>45); THYROID STIMULATING HORMONE 1.108 uIU/ML (0.55-4.78); TOTAL PROTEIN 7.5 G/DL (5.7-8.2)
== END ==
LOC: M WUC 08:01
PROVIDERS: ATTEND Nurse Practitioner
DX: C67.9 Malignant neoplasm of bladder, unspecified (principal)

== ENCOUNTER → 2023-01-15 | Outpatient (CLI) | payer BC ==
[~2023-01-15] MED LIST changes: +GASTROGRAFIN SOLUTION 30ML As Ordered ONE
== END ==
LOC: M RAD 13:17
PROVIDERS: ATTEND Nurse Practitioner
DX: C67.9 Malignant neoplasm of bladder, unspecified (principal); N28.1 Cyst of kidney, acquired; K76.89 Other specified diseases of liver; I70.0 Atherosclerosis of aorta; J44.9 Chronic obstructive pulmonary disease, unspecified; J98.4 Other disorders of lung
CPT/HCPCS: 71250; 74176; Q9963

== ENCOUNTER → 2023-01-15 | Outpatient (CLI) | payer BC ==
[~2023-01-15] MED LIST changes: -GASTROGRAFIN SOLUTION 30ML As Ordered ONE
[2023-01-15 10:15] LABS: BASO # 0.1 10^3/uL (0.0-0.2); BASO % 1.1 % (0.0-1.0); EOS # 0.1 10^3/uL (0.0-0.5); EOS % 1.4 % (0.0-3.0); HEMATOCRIT 39.6 % (36.0-47.0); HEMOGLOBIN 12.6 g/dl (12.0-15.5); LYMPH % 25.9 % (24.0-44.0); MEAN CORPUSCULAR HEMOGLOBIN 30.9 pg (27.0-33.0); MEAN CORPUSCULAR HGB CONC 31.8 g/dl (32.0-36.5); MEAN CORPUSCULAR VOLUME 97.1 fl (80.0-96.0); MONO # 0.7 10^3/uL (0.0-0.8); MONO % 9.3 % (2.0-8.0); NEUTROPHILS # 4.7 10^3/uL (1.5-8.5); NEUTROPHILS % 61.9 % (36.0-66.0); PLATELET COUNT, AUTOMATED 485 10^3/uL (150-450); RED BLOOD COUNT 4.08 10^6/uL (4.00-5.40); WHITE BLOOD COUNT 7.6 10^3/uL (4.0-10.0)
[2023-01-15 10:44] LABS: ALBUMIN 4.2 G/DL (3.2-5.2); BILIRUBIN,TOTAL 0.3 MG/DL (0.3-1.2); CALCIUM LEVEL 9.5 MG/DL (8.3-10.6); CREATININE FOR GFR 1.18 MG/DL (0.55-1.30); GLOMERULAR FILTRATION RATE 49.2 (>45); POTASSIUM SERUM 4.8 MMOL/L (3.5-5.1); TOTAL PROTEIN 7.5 G/DL (5.7-8.2)
[2023-01-15 10:47] LABS: THYROID STIMULATING HORMONE 1.405 uIU/ML (0.55-4.78)
== END ==
LOC: M WUC 07:59
PROVIDERS: ATTEND Nurse Practitioner
DX: C67.9 Malignant neoplasm of bladder, unspecified (principal)

== ENCOUNTER → 2023-01-29 | Outpatient (CLI) | payer BC ==
[2023-01-29 10:49] LABS: BASO # 0.1 10^3/uL (0.0-0.2); BASO % 1.6 % (0.0-1.0); EOS # 0.1 10^3/uL (0.0-0.5); HEMATOCRIT 39.2 % (36.0-47.0); HEMOGLOBIN 12.8 g/dl (12.0-15.5); LYMPH # 1.9 10^3/uL (1.5-5.0); LYMPH % 26.9 % (24.0-44.0); MEAN CORPUSCULAR HEMOGLOBIN 31.5 pg (27.0-33.0); MEAN CORPUSCULAR HGB CONC 32.7 g/dl (32.0-36.5); MEAN CORPUSCULAR VOLUME 96.6 fl (80.0-96.0); MONO # 0.8 10^3/uL (0.0-0.8); NEUTROPHILS % 57.9 % (36.0-66.0); PLATELET COUNT, AUTOMATED 439 10^3/uL (150-450); RED BLOOD COUNT 4.06 10^6/uL (4.00-5.40); WHITE BLOOD COUNT 6.9 10^3/uL (4.0-10.0)
[2023-01-29 11:21] LABS: ALBUMIN 4.2 G/DL (3.2-5.2); BILIRUBIN,TOTAL 0.3 MG/DL (0.3-1.2); CALCIUM LEVEL 9.4 MG/DL (8.3-10.6); CREATININE FOR GFR 1.2 MG/DL (0.55-1.30); GLOMERULAR FILTRATION RATE 48.3 (>45); POTASSIUM SERUM 4.7 MMOL/L (3.5-5.1); TOTAL PROTEIN 7.6 G/DL (5.7-8.2)
[2023-01-29 11:22] LABS: FREE T4 0.96 NG/DL (0.89-1.76); THYROID STIMULATING HORMONE 1.234 uIU/ML (0.55-4.78)
== END ==
LOC: M WUC 07:55
PROVIDERS: ATTEND Nurse Practitioner
DX: C67.9 Malignant neoplasm of bladder, unspecified (principal)

== ENCOUNTER → 2023-02-27 | Outpatient (CLI) | payer BC ==
[2023-02-27 12:16] LABS: BASO # 0.1 10^3/uL (0.0-0.2); BASO % 1.1 % (0.0-1.0); EOS # 0.1 10^3/uL (0.0-0.5); EOS % 1.3 % (0.0-3.0); HEMATOCRIT 39.1 % (36.0-47.0); HEMOGLOBIN 12.8 g/dl (12.0-15.5); LYMPH # 2.1 10^3/uL (1.5-5.0); LYMPH % 21.4 % (24.0-44.0); MEAN CORPUSCULAR HEMOGLOBIN 31.4 pg (27.0-33.0); MEAN CORPUSCULAR HGB CONC 32.7 g/dl (32.0-36.5); MEAN CORPUSCULAR VOLUME 96.1 fl (80.0-96.0); MONO # 0.9 10^3/uL (0.0-0.8); MONO % 9.6 % (2.0-8.0); NEUTROPHILS # 6.4 10^3/uL (1.5-8.5); NEUTROPHILS % 66.3 % (36.0-66.0); PLATELET COUNT, AUTOMATED 419 10^3/uL (150-450); RED BLOOD COUNT 4.07 10^6/uL (4.00-5.40); WHITE BLOOD COUNT 9.6 10^3/uL (4.0-10.0)
[2023-02-27 12:39] LABS: ALBUMIN 4.3 G/DL (3.2-5.2); BILIRUBIN,TOTAL 0.4 MG/DL (0.3-1.2); CALCIUM LEVEL 9.1 MG/DL (8.3-10.6); CREATININE FOR GFR 1.15 MG/DL (0.55-1.30); GLOMERULAR FILTRATION RATE 50.7 (>45); POTASSIUM SERUM 4.5 MMOL/L (3.5-5.1); TOTAL PROTEIN 7.6 G/DL (5.7-8.2)
[2023-02-27 12:42] LABS: FREE T4 1.04 NG/DL (0.89-1.76)
[2023-02-27 12:43] LABS: THYROID STIMULATING HORMONE 1.244 uIU/ML (0.55-4.78)
== END ==
LOC: M WUC 07:55
PROVIDERS: ATTEND Nurse Practitioner
DX: C67.9 Malignant neoplasm of bladder, unspecified (principal)

== ENCOUNTER → 2023-03-13 | Outpatient (REF) | payer BC ==
[2023-03-13 10:05] LABS: BASO # 0.1 10^3/uL (0.0-0.2); BASO % 1.6 % (0.0-1.0); EOS # 0.1 10^3/uL (0.0-0.5); EOS % 1.6 % (0.0-3.0); HEMATOCRIT 40.1 % (36.0-47.0); HEMOGLOBIN 13.1 g/dl (12.0-15.5); LYMPH % 28.5 % (24.0-44.0); MEAN CORPUSCULAR HEMOGLOBIN 31.3 pg (27.0-33.0); MEAN CORPUSCULAR HGB CONC 32.7 g/dl (32.0-36.5); MEAN CORPUSCULAR VOLUME 95.9 fl (80.0-96.0); MONO # 0.7 10^3/uL (0.0-0.8); MONO % 10.6 % (2.0-8.0); NEUTROPHILS % 57.3 % (36.0-66.0); PLATELET COUNT, AUTOMATED 432 10^3/uL (150-450); RED BLOOD COUNT 4.18 10^6/uL (4.00-5.40)
[2023-03-13 10:31] LABS: ALBUMIN 4.4 G/DL (3.2-5.2); BILIRUBIN,TOTAL 0.4 MG/DL (0.3-1.2); CALCIUM LEVEL 9.2 MG/DL (8.3-10.6); CREATININE FOR GFR 1.15 MG/DL (0.55-1.30); GLOMERULAR FILTRATION RATE 50.7 (>45); POTASSIUM SERUM 4.6 MMOL/L (3.5-5.1); TOTAL PROTEIN 7.5 G/DL (5.7-8.2)
[2023-03-13 10:33] LABS: FREE T4 0.99 NG/DL (0.89-1.76); THYROID STIMULATING HORMONE 0.894 uIU/ML (0.55-4.78)
== END ==
LOC: M LABWUC 09:18
PROVIDERS: ATTEND Nurse Practitioner
DX: C67.9 Malignant neoplasm of bladder, unspecified (principal)

== ENCOUNTER → 2023-03-27 | Outpatient (CLI) | payer BC ==
[2023-03-27 10:09] LABS: BASO # 0.1 10^3/uL (0.0-0.2); BASO % 1.2 % (0.0-1.0); EOS # 0.1 10^3/uL (0.0-0.5); EOS % 2.1 % (0.0-3.0); HEMATOCRIT 39.7 % (36.0-47.0); HEMOGLOBIN 12.4 g/dl (12.0-15.5); LYMPH # 1.8 10^3/uL (1.5-5.0); LYMPH % 27.4 % (24.0-44.0); MEAN CORPUSCULAR HEMOGLOBIN 30.5 pg (27.0-33.0); MEAN CORPUSCULAR HGB CONC 31.2 g/dl (32.0-36.5); MEAN CORPUSCULAR VOLUME 97.8 fl (80.0-96.0); MONO # 0.7 10^3/uL (0.0-0.8); NEUTROPHILS # 3.9 10^3/uL (1.5-8.5); PLATELET COUNT, AUTOMATED 425 10^3/uL (150-450); RED BLOOD COUNT 4.06 10^6/uL (4.00-5.40); WHITE BLOOD COUNT 6.7 10^3/uL (4.0-10.0)
[2023-03-27 10:29] LABS: BILIRUBIN,TOTAL 0.2 MG/DL (0.3-1.2); CALCIUM LEVEL 8.9 MG/DL (8.3-10.6); CREATININE FOR GFR 1.11 MG/DL (0.55-1.30); GLOMERULAR FILTRATION RATE 52.7 (>45); POTASSIUM SERUM 4.6 MMOL/L (3.5-5.1); TOTAL PROTEIN 7.1 G/DL (5.7-8.2)
[2023-03-27 10:31] LABS: FREE T4 0.91 NG/DL (0.89-1.76); THYROID STIMULATING HORMONE 1.004 uIU/ML (0.55-4.78)
== END ==
LOC: M WUC 08:03
PROVIDERS: ATTEND Nurse Practitioner
DX: C67.9 Malignant neoplasm of bladder, unspecified (principal)

== ENCOUNTER → 2023-04-10 | Outpatient (REF) | payer BC ==
[2023-04-10 10:49] LABS: BASO # 0.1 10^3/uL (0.0-0.2); BASO % 1.3 % (0.0-1.0); EOS # 0.1 10^3/uL (0.0-0.5); EOS % 1.7 % (0.0-3.0); HEMATOCRIT 38.6 % (36.0-47.0); HEMOGLOBIN 12.5 g/dl (12.0-15.5); LYMPH # 1.9 10^3/uL (1.5-5.0); LYMPH % 25.2 % (24.0-44.0); MEAN CORPUSCULAR HEMOGLOBIN 31.1 pg (27.0-33.0); MEAN CORPUSCULAR HGB CONC 32.4 g/dl (32.0-36.5); MONO # 0.8 10^3/uL (0.0-0.8); MONO % 10.5 % (2.0-8.0); NEUTROPHILS # 4.7 10^3/uL (1.5-8.5); NEUTROPHILS % 60.9 % (36.0-66.0); PLATELET COUNT, AUTOMATED 435 10^3/uL (150-450); RED BLOOD COUNT 4.02 10^6/uL (4.00-5.40); WHITE BLOOD COUNT 7.7 10^3/uL (4.0-10.0)
[2023-04-10 11:19] LABS: FREE T4 0.96 NG/DL (0.89-1.76); THYROID STIMULATING HORMONE 1.205 uIU/ML (0.55-4.78)
[2023-04-10 11:21] LABS: ALBUMIN 4.3 G/DL (3.2-5.2); BILIRUBIN,TOTAL 0.4 MG/DL (0.3-1.2); CALCIUM LEVEL 9.4 MG/DL (8.3-10.6); CREATININE FOR GFR 1.1 MG/DL (0.55-1.30); GLOMERULAR FILTRATION RATE 53.2 (>45); POTASSIUM SERUM 4.6 MMOL/L (3.5-5.1); TOTAL PROTEIN 7.4 G/DL (5.7-8.2)
== END ==
LOC: M LABWUC 09:55
PROVIDERS: ATTEND Nurse Practitioner
DX: C67.9 Malignant neoplasm of bladder, unspecified (principal)

== ENCOUNTER → 2023-05-08 | Outpatient (REF) | payer BC ==
[2023-05-08 10:18] LABS: BASO # 0.1 10^3/uL (0.0-0.2); BASO % 1.2 % (0.0-1.0); EOS # 0.1 10^3/uL (0.0-0.5); EOS % 1.5 % (0.0-3.0); HEMATOCRIT 38.6 % (36.0-47.0); HEMOGLOBIN 12.6 g/dl (12.0-15.5); LYMPH # 1.8 10^3/uL (1.5-5.0); LYMPH % 19.1 % (24.0-44.0); MEAN CORPUSCULAR HEMOGLOBIN 31.3 pg (27.0-33.0); MEAN CORPUSCULAR HGB CONC 32.6 g/dl (32.0-36.5); MEAN CORPUSCULAR VOLUME 95.8 fl (80.0-96.0); MONO # 0.8 10^3/uL (0.0-0.8); MONO % 9.2 % (2.0-8.0); NEUTROPHILS # 6.3 10^3/uL (1.5-8.5); NEUTROPHILS % 68.5 % (36.0-66.0); PLATELET COUNT, AUTOMATED 424 10^3/uL (150-450); RED BLOOD COUNT 4.03 10^6/uL (4.00-5.40); WHITE BLOOD COUNT 9.2 10^3/uL (4.0-10.0)
[2023-05-08 10:45] LABS: ALBUMIN 4.4 G/DL (3.2-5.2); BILIRUBIN,TOTAL 0.4 MG/DL (0.3-1.2); CALCIUM LEVEL 9.3 MG/DL (8.3-10.6); CREATININE FOR GFR 1.1 MG/DL (0.55-1.30); GLOMERULAR FILTRATION RATE 53.2 (>45); POTASSIUM SERUM 4.5 MMOL/L (3.5-5.1); THYROID STIMULATING HORMONE 1.384 uIU/ML (0.55-4.78); TOTAL PROTEIN 7.5 G/DL (5.7-8.2)
[2023-05-08 10:46] LABS: FREE T4 0.98 NG/DL (0.89-1.76)
== END ==
LOC: M LABWUC 09:28
PROVIDERS: ATTEND Nurse Practitioner
DX: C67.9 Malignant neoplasm of bladder, unspecified (principal)

== ENCOUNTER → 2023-05-22 | Outpatient (REF) | payer BC ==
[~2023-05-22] MED LIST changes: -PRAV40TA2
[2023-05-22 20:25] LABS: ALBUMIN 4.1 G/DL (3.2-5.2); BILIRUBIN,TOTAL 0.3 MG/DL (0.3-1.2); CREATININE FOR GFR 1.14 MG/DL (0.55-1.30); GLOMERULAR FILTRATION RATE 51.1 (>45); POTASSIUM SERUM 4.6 MMOL/L (3.5-5.1); TOTAL PROTEIN 7.3 G/DL (5.7-8.2)
[2023-05-22 20:26] LABS: BASO # 0.1 10^3/uL (0.0-0.2); BASO % 1.4 % (0.0-1.0); EOS # 0.1 10^3/uL (0.0-0.5); EOS % 1.4 % (0.0-3.0); HEMATOCRIT 37.5 % (36.0-47.0); HEMOGLOBIN 12.2 g/dl (12.0-15.5); LYMPH # 2.3 10^3/uL (1.5-5.0); MEAN CORPUSCULAR HEMOGLOBIN 31.1 pg (27.0-33.0); MEAN CORPUSCULAR HGB CONC 32.5 g/dl (32.0-36.5); MEAN CORPUSCULAR VOLUME 95.7 fl (80.0-96.0); MONO # 0.9 10^3/uL (0.0-0.8); MONO % 11.2 % (2.0-8.0); NEUTROPHILS # 4.3 10^3/uL (1.5-8.5); NEUTROPHILS % 55.6 % (36.0-66.0); PLATELET COUNT, AUTOMATED 402 10^3/uL (150-450); RED BLOOD COUNT 3.92 10^6/uL (4.00-5.40); WHITE BLOOD COUNT 7.7 10^3/uL (4.0-10.0)
[2023-05-22 20:27] LABS: FREE T4 0.99 NG/DL (0.89-1.76); THYROID STIMULATING HORMONE 0.895 uIU/ML (0.55-4.78)
== END ==
LOC: M LABWUC 07:16
PROVIDERS: ATTEND Nurse Practitioner
DX: C67.9 Malignant neoplasm of bladder, unspecified (principal)

== ENCOUNTER → 2023-06-05 | Outpatient (REF) | payer BC ==
[2023-06-05 11:57] LABS: THYROID STIMULATING HORMONE 1.538 uIU/ML (0.55-4.78)
[2023-06-05 11:58] LABS: FREE T4 0.98 NG/DL (0.89-1.76)
[2023-06-05 12:02] LABS: BASO # 0.1 10^3/uL (0.0-0.2); BASO % 1.6 % (0.0-1.0); BILIRUBIN,TOTAL 0.3 MG/DL (0.3-1.2); CALCIUM LEVEL 9.6 MG/DL (8.3-10.6); CREATININE FOR GFR 1.17 MG/DL (0.55-1.30); EOS # 0.2 10^3/uL (0.0-0.5); EOS % 2.1 % (0.0-3.0); GLOMERULAR FILTRATION RATE 49.6 (>45); HEMATOCRIT 38.9 % (36.0-47.0); HEMOGLOBIN 12.6 g/dl (12.0-15.5); LYMPH % 28.6 % (24.0-44.0); MEAN CORPUSCULAR HGB CONC 32.4 g/dl (32.0-36.5); MEAN CORPUSCULAR VOLUME 95.8 fl (80.0-96.0); MONO # 0.7 10^3/uL (0.0-0.8); MONO % 10.4 % (2.0-8.0); PLATELET COUNT, AUTOMATED 435 10^3/uL (150-450); POTASSIUM SERUM 4.7 MMOL/L (3.5-5.1); RED BLOOD COUNT 4.06 10^6/uL (4.00-5.40)
== END ==
LOC: M WUC 11:06
PROVIDERS: ATTEND Nurse Practitioner
DX: C67.9 Malignant neoplasm of bladder, unspecified (principal)

== ENCOUNTER → 2023-06-19 | Outpatient (REF) | payer BC ==
[2023-06-19 10:46] LABS: BASO # 0.1 10^3/uL (0.0-0.2); BASO % 1.4 % (0.0-1.0); EOS # 0.1 10^3/uL (0.0-0.5); EOS % 1.6 % (0.0-3.0); HEMATOCRIT 40.5 % (36.0-47.0); HEMOGLOBIN 12.8 g/dl (12.0-15.5); LYMPH # 1.7 10^3/uL (1.5-5.0); LYMPH % 22.8 % (24.0-44.0); MEAN CORPUSCULAR HEMOGLOBIN 30.8 pg (27.0-33.0); MEAN CORPUSCULAR HGB CONC 31.6 g/dl (32.0-36.5); MEAN CORPUSCULAR VOLUME 97.6 fl (80.0-96.0); MONO # 0.7 10^3/uL (0.0-0.8); MONO % 9.7 % (2.0-8.0); NEUTROPHILS # 4.7 10^3/uL (1.5-8.5); NEUTROPHILS % 64.2 % (36.0-66.0); PLATELET COUNT, AUTOMATED 442 10^3/uL (150-450); RED BLOOD COUNT 4.15 10^6/uL (4.00-5.40); WHITE BLOOD COUNT 7.3 10^3/uL (4.0-10.0)
[2023-06-19 11:17] LABS: THYROID STIMULATING HORMONE 0.98 uIU/ML (0.55-4.78)
[2023-06-19 11:18] LABS: BILIRUBIN,TOTAL 0.3 MG/DL (0.3-1.2); CALCIUM LEVEL 9.5 MG/DL (8.3-10.6); CREATININE FOR GFR 1.15 MG/DL (0.55-1.30); GLOMERULAR FILTRATION RATE 50.6 (>45); POTASSIUM SERUM 4.4 MMOL/L (3.5-5.1); TOTAL PROTEIN 7.1 G/DL (5.7-8.2)
[2023-06-19 11:21] LABS: FREE T4 1.04 NG/DL (0.89-1.76)
== END ==
LOC: M LABWUC 10:23
PROVIDERS: ATTEND Nurse Practitioner
DX: C67.9 Malignant neoplasm of bladder, unspecified (principal)

== ENCOUNTER → 2023-07-14 | Outpatient (CLI) | payer BC | LOC: M RAD 13:20 | PROVIDERS: ATTEND Internal Medicine Medical Oncology | DX: C67.9 Malignant neoplasm of bladder, unspecified (principal); K76.89 Other specified diseases of liver ==

== ENCOUNTER → 2023-07-17 | Outpatient (CLI) | payer BC ==
[2023-07-17 11:01] LABS: BASO # 0.1 10^3/uL (0.0-0.2); BASO % 1.4 % (0.0-1.0); EOS # 0.2 10^3/uL (0.0-0.5); EOS % 2.1 % (0.0-3.0); HEMATOCRIT 38.6 % (36.0-47.0); HEMOGLOBIN 12.5 g/dl (12.0-15.5); LYMPH # 1.8 10^3/uL (1.5-5.0); LYMPH % 25.4 % (24.0-44.0); MEAN CORPUSCULAR HEMOGLOBIN 31.3 pg (27.0-33.0); MEAN CORPUSCULAR HGB CONC 32.4 g/dl (32.0-36.5); MEAN CORPUSCULAR VOLUME 96.7 fl (80.0-96.0); MONO # 0.7 10^3/uL (0.0-0.8); MONO % 10.5 % (2.0-8.0); NEUTROPHILS # 4.2 10^3/uL (1.5-8.5); NEUTROPHILS % 60.3 % (36.0-66.0); PLATELET COUNT, AUTOMATED 408 10^3/uL (150-450); RED BLOOD COUNT 3.99 10^6/uL (4.00-5.40)
[2023-07-17 11:32] LABS: BILIRUBIN,TOTAL 0.3 MG/DL (0.3-1.2); CALCIUM LEVEL 9.4 MG/DL (8.3-10.6); CREATININE FOR GFR 1.14 MG/DL (0.55-1.30); FREE T4 1.03 NG/DL (0.89-1.76); GLOMERULAR FILTRATION RATE 51.1 (>45); POTASSIUM SERUM 4.9 MMOL/L (3.5-5.1); TOTAL PROTEIN 7.2 G/DL (5.7-8.2)
[2023-07-17 11:33] LABS: FREE T3 3.2 PG/ML (2.3-4.2); THYROID STIMULATING HORMONE 1.349 uIU/ML (0.55-4.78)
== END ==
LOC: M WUC 07:49
PROVIDERS: ATTEND Nurse Practitioner
DX: C67.9 Malignant neoplasm of bladder, unspecified (principal)

== ENCOUNTER → 2023-07-31 | Outpatient (REF) | payer BC ==
[2023-07-31 13:18] LABS: BASO # 0.1 10^3/uL (0.0-0.2); BASO % 1.1 % (0.0-1.0); EOS # 0.1 10^3/uL (0.0-0.5); HEMATOCRIT 38.2 % (36.0-47.0); HEMOGLOBIN 12.3 g/dl (12.0-15.5); LYMPH % 22.4 % (24.0-44.0); MEAN CORPUSCULAR HEMOGLOBIN 31.4 pg (27.0-33.0); MEAN CORPUSCULAR HGB CONC 32.2 g/dl (32.0-36.5); MEAN CORPUSCULAR VOLUME 97.4 fl (80.0-96.0); MONO # 0.9 10^3/uL (0.0-0.8); MONO % 10.6 % (2.0-8.0); NEUTROPHILS # 5.7 10^3/uL (1.5-8.5); NEUTROPHILS % 64.4 % (36.0-66.0); PLATELET COUNT, AUTOMATED 482 10^3/uL (150-450); RED BLOOD COUNT 3.92 10^6/uL (4.00-5.40); WHITE BLOOD COUNT 8.9 10^3/uL (4.0-10.0)
[2023-07-31 13:50] LABS: BILIRUBIN,TOTAL 0.3 MG/DL (0.3-1.2); CALCIUM LEVEL 9.6 MG/DL (8.3-10.6); CREATININE FOR GFR 1.22 MG/DL (0.55-1.30); GLOMERULAR FILTRATION RATE 47.2 (>45); POTASSIUM SERUM 5.2 MMOL/L (3.5-5.1); TOTAL PROTEIN 7.4 G/DL (5.7-8.2)
[2023-07-31 13:52] LABS: FREE T3 2.9 PG/ML (2.3-4.2); FREE T4 0.89 NG/DL (0.89-1.76)
[2023-07-31 13:53] LABS: THYROID STIMULATING HORMONE 1.288 uIU/ML (0.55-4.78)
== END ==
LOC: M LABWUC 09:22
PROVIDERS: ATTEND Nurse Practitioner
DX: C79.11 Secondary malignant neoplasm of bladder (principal)

== ENCOUNTER → 2023-08-14 | Outpatient (REF) | payer BC ==
[2023-08-14 11:10] LABS: BASO # 0.1 10^3/uL (0.0-0.2); BASO % 1.9 % (0.0-1.0); EOS # 0.1 10^3/uL (0.0-0.5); EOS % 2.1 % (0.0-3.0); HEMOGLOBIN 12.4 g/dl (12.0-15.5); LYMPH # 1.4 10^3/uL (1.5-5.0); LYMPH % 22.9 % (24.0-44.0); MEAN CORPUSCULAR HEMOGLOBIN 31.3 pg (27.0-33.0); MEAN CORPUSCULAR HGB CONC 32.6 g/dl (32.0-36.5); MONO # 0.6 10^3/uL (0.0-0.8); MONO % 10.2 % (2.0-8.0); NEUTROPHILS # 3.9 10^3/uL (1.5-8.5); NEUTROPHILS % 62.7 % (36.0-66.0); PLATELET COUNT, AUTOMATED 408 10^3/uL (150-450); RED BLOOD COUNT 3.96 10^6/uL (4.00-5.40); WHITE BLOOD COUNT 6.2 10^3/uL (4.0-10.0)
[2023-08-14 11:49] LABS: BILIRUBIN,TOTAL 0.4 MG/DL (0.3-1.2); CALCIUM LEVEL 9.5 MG/DL (8.3-10.6); CREATININE FOR GFR 1.11 MG/DL (0.55-1.30); GLOMERULAR FILTRATION RATE 52.7 (>45); POTASSIUM SERUM 4.7 MMOL/L (3.5-5.1); TOTAL PROTEIN 7.3 G/DL (5.7-8.2)
[2023-08-14 11:50] LABS: FREE T4 0.9 NG/DL (0.89-1.76); THYROID STIMULATING HORMONE 1.389 uIU/ML (0.55-4.78)
[2023-08-14 11:53] LABS: FREE T3 3.2 PG/ML (2.3-4.2)
== END ==
LOC: M LABWUC 10:19
PROVIDERS: ATTEND Nurse Practitioner
DX: C67.9 Malignant neoplasm of bladder, unspecified (principal)

== ENCOUNTER → 2023-08-14 | Outpatient (REF) | payer BC ==
[2023-08-14 11:28] LABS: HEMOGLOBIN A1c 5.3 % (4.0-6.0)
[2023-08-14 11:52] LABS: CHOLESTEROL RISK RATIO 3.45 (<5); HDL CHOLESTEROL 65.1 MG/DL (>40); LDL CHOLESTEROL 134.5 MG/DL (<100); NON-HDL-C 159.9 MG/DL
== END ==
LOC: M LABWUC 10:21
PROVIDERS: ATTEND Physician Assistant
DX: E78.2 Mixed hyperlipidemia (principal); Z85.3 Personal history of malignant neoplasm of breast

== ENCOUNTER → 2023-08-26 | Outpatient (REF) | payer BC ==
[2023-08-26 16:31] LABS: BASO # 0.1 10^3/uL (0.0-0.2); BASO % 1.1 % (0.0-1.0); EOS # 0.1 10^3/uL (0.0-0.5); HEMATOCRIT 40.2 % (36.0-47.0); LYMPH % 24.3 % (24.0-44.0); MEAN CORPUSCULAR HEMOGLOBIN 31.3 pg (27.0-33.0); MEAN CORPUSCULAR HGB CONC 32.3 g/dl (32.0-36.5); MEAN CORPUSCULAR VOLUME 96.9 fl (80.0-96.0); MONO # 0.6 10^3/uL (0.0-0.8); NEUTROPHILS # 5.4 10^3/uL (1.5-8.5); NEUTROPHILS % 66.4 % (36.0-66.0); PLATELET COUNT, AUTOMATED 436 10^3/uL (150-450); RED BLOOD COUNT 4.15 10^6/uL (4.00-5.40); WHITE BLOOD COUNT 8.2 10^3/uL (4.0-10.0)
[2023-08-26 16:41] LABS: ALBUMIN 4.3 G/DL (3.2-5.2); BILIRUBIN,TOTAL 0.3 MG/DL (0.3-1.2); CALCIUM LEVEL 9.7 MG/DL (8.3-10.6); CREATININE FOR GFR 1.1 MG/DL (0.55-1.30); FREE T3 2.7 PG/ML (2.3-4.2); FREE T4 0.96 NG/DL (0.89-1.76); GLOMERULAR FILTRATION RATE 53.2 (>45); POTASSIUM SERUM 4.5 MMOL/L (3.5-5.1); THYROID STIMULATING HORMONE 1.055 uIU/ML (0.55-4.78); TOTAL PROTEIN 7.7 G/DL (5.7-8.2)
== END ==
LOC: M WUC 15:34
PROVIDERS: ATTEND Nurse Practitioner
DX: C67.9 Malignant neoplasm of bladder, unspecified (principal)

== ENCOUNTER → 2023-09-11 | Outpatient (REF) | payer BC ==
[2023-09-11 09:57] LABS: BASO # 0.1 10^3/uL (0.0-0.2); BASO % 1.5 % (0.0-1.0); EOS # 0.1 10^3/uL (0.0-0.5); EOS % 1.4 % (0.0-3.0); HEMATOCRIT 40.3 % (36.0-47.0); HEMOGLOBIN 13.2 g/dl (12.0-15.5); LYMPH % 24.3 % (24.0-44.0); MEAN CORPUSCULAR HEMOGLOBIN 31.6 pg (27.0-33.0); MEAN CORPUSCULAR HGB CONC 32.8 g/dl (32.0-36.5); MEAN CORPUSCULAR VOLUME 96.4 fl (80.0-96.0); MONO # 0.8 10^3/uL (0.0-0.8); MONO % 10.2 % (2.0-8.0); NEUTROPHILS # 5.1 10^3/uL (1.5-8.5); NEUTROPHILS % 62.4 % (36.0-66.0); PLATELET COUNT, AUTOMATED 430 10^3/uL (150-450); RED BLOOD COUNT 4.18 10^6/uL (4.00-5.40); WHITE BLOOD COUNT 8.1 10^3/uL (4.0-10.0)
[2023-09-11 10:55] LABS: FREE T4 1.07 NG/DL (0.89-1.76); THYROID STIMULATING HORMONE 1.266 uIU/ML (0.55-4.78)
[2023-09-11 11:25] LABS: ALBUMIN 3.6 G/DL (3.2-5.2); BILIRUBIN,TOTAL 0.3 MG/DL (0.3-1.2); CALCIUM LEVEL 9.8 MG/DL (8.3-10.6); CREATININE FOR GFR 1.13 MG/DL (0.55-1.30); FREE T3 2.9 PG/ML (2.3-4.2); GLOMERULAR FILTRATION RATE 51.6 (>45); POTASSIUM SERUM 4.6 MMOL/L (3.5-5.1); TOTAL PROTEIN 7.5 G/DL (5.7-8.2)
== END ==
LOC: M LABWUC 09:34
PROVIDERS: ATTEND Nurse Practitioner
DX: C67.9 Malignant neoplasm of bladder, unspecified (principal)

== ENCOUNTER → 2023-09-25 | Outpatient (REF) | payer BC ==
[2023-09-25 11:33] LABS: BASO # 0.1 10^3/uL (0.0-0.2); BASO % 1.6 % (0.0-1.0); EOS # 0.1 10^3/uL (0.0-0.5); EOS % 1.6 % (0.0-3.0); HEMATOCRIT 39.1 % (36.0-47.0); HEMOGLOBIN 12.8 g/dl (12.0-15.5); LYMPH # 2.1 10^3/uL (1.5-5.0); LYMPH % 32.5 % (24.0-44.0); MEAN CORPUSCULAR HEMOGLOBIN 31.2 pg (27.0-33.0); MEAN CORPUSCULAR HGB CONC 32.7 g/dl (32.0-36.5); MEAN CORPUSCULAR VOLUME 95.4 fl (80.0-96.0); MONO # 0.8 10^3/uL (0.0-0.8); MONO % 11.8 % (2.0-8.0); NEUTROPHILS # 3.3 10^3/uL (1.5-8.5); NEUTROPHILS % 52.2 % (36.0-66.0); PLATELET COUNT, AUTOMATED 421 10^3/uL (150-450); WHITE BLOOD COUNT 6.4 10^3/uL (4.0-10.0)
[2023-09-25 11:58] LABS: ALBUMIN 4.2 G/DL (3.2-5.2); BILIRUBIN,TOTAL 0.3 MG/DL (0.3-1.2); CALCIUM LEVEL 9.4 MG/DL (8.3-10.6); CREATININE FOR GFR 1.1 MG/DL (0.55-1.30); GLOMERULAR FILTRATION RATE 53.2 (>45); POTASSIUM SERUM 4.7 MMOL/L (3.5-5.1); TOTAL PROTEIN 7.3 G/DL (5.7-8.2)
[2023-09-25 11:59] LABS: FREE T3 3.2 PG/ML (2.3-4.2); THYROID STIMULATING HORMONE 1.642 uIU/ML (0.55-4.78)
[2023-09-25 12:00] LABS: FREE T4 1.08 NG/DL (0.89-1.76)
== END ==
LOC: M LABWUC 10:06
PROVIDERS: ATTEND Nurse Practitioner
DX: C79.11 Secondary malignant neoplasm of bladder (principal)

== ENCOUNTER → 2023-10-09 | Outpatient (REF) | payer BC ==
[2023-10-09 18:30] LABS: BASO # 0.1 10^3/uL (0.0-0.2); BASO % 1.1 % (0.0-1.0); EOS # 0.1 10^3/uL (0.0-0.5); EOS % 0.9 % (0.0-3.0); HEMATOCRIT 39.5 % (36.0-47.0); HEMOGLOBIN 12.8 g/dl (12.0-15.5); LYMPH # 2.1 10^3/uL (1.5-5.0); MEAN CORPUSCULAR HEMOGLOBIN 31.4 pg (27.0-33.0); MEAN CORPUSCULAR HGB CONC 32.4 g/dl (32.0-36.5); MEAN CORPUSCULAR VOLUME 96.8 fl (80.0-96.0); MONO # 0.7 10^3/uL (0.0-0.8); MONO % 9.2 % (2.0-8.0); NEUTROPHILS # 4.4 10^3/uL (1.5-8.5); NEUTROPHILS % 59.5 % (36.0-66.0); PLATELET COUNT, AUTOMATED 434 10^3/uL (150-450); RED BLOOD COUNT 4.08 10^6/uL (4.00-5.40); WHITE BLOOD COUNT 7.4 10^3/uL (4.0-10.0)
[2023-10-09 19:05] LABS: ALBUMIN 4.3 G/DL (3.2-5.2); BILIRUBIN,TOTAL 0.4 MG/DL (0.3-1.2); CALCIUM LEVEL 9.6 MG/DL (8.3-10.6); CREATININE FOR GFR 1.09 MG/DL (0.55-1.30); GLOMERULAR FILTRATION RATE 53.8 (>45); POTASSIUM SERUM 4.1 MMOL/L (3.5-5.1); TOTAL PROTEIN 7.4 G/DL (5.7-8.2)
[2023-10-09 19:06] LABS: FREE T3 3.1 PG/ML (2.3-4.2)
[2023-10-09 19:07] LABS: FREE T4 1.03 NG/DL (0.89-1.76); THYROID STIMULATING HORMONE 1.238 uIU/ML (0.55-4.78)
== END ==
LOC: M LABWUC 16:34
PROVIDERS: ATTEND Nurse Practitioner
DX: C67.9 Malignant neoplasm of bladder, unspecified (principal)

== ENCOUNTER → 2023-10-16 | Outpatient (CLI) | payer BC | LOC: M WUC 10:16 | PROVIDERS: ATTEND Student in an Organized Health Care Education/Training Program | DX: M79.641 Pain in right hand (principal) ==

== ENCOUNTER → 2023-11-06 | Outpatient (REF) | payer BC ==
[2023-11-06 17:05] LABS: BASO # 0.1 10^3/uL (0.0-0.2); EOS # 0.1 10^3/uL (0.0-0.5); EOS % 0.7 % (0.0-3.0); HEMATOCRIT 40.2 % (36.0-47.0); HEMOGLOBIN 12.9 g/dl (12.0-15.5); LYMPH # 1.9 10^3/uL (1.5-5.0); LYMPH % 18.1 % (24.0-44.0); MEAN CORPUSCULAR HGB CONC 32.1 g/dl (32.0-36.5); MEAN CORPUSCULAR VOLUME 96.6 fl (80.0-96.0); MONO # 1.1 10^3/uL (0.0-0.8); MONO % 10.2 % (2.0-8.0); NEUTROPHILS # 7.3 10^3/uL (1.5-8.5); NEUTROPHILS % 69.7 % (36.0-66.0); PLATELET COUNT, AUTOMATED 451 10^3/uL (150-450); RED BLOOD COUNT 4.16 10^6/uL (4.00-5.40); WHITE BLOOD COUNT 10.4 10^3/uL (4.0-10.0)
[2023-11-06 17:36] LABS: ALBUMIN 3.9 G/DL (3.2-5.2); BILIRUBIN,TOTAL 0.4 MG/DL (0.3-1.2); CALCIUM LEVEL 9.4 MG/DL (8.3-10.6); CREATININE FOR GFR 1.25 MG/DL (0.55-1.30); GLOMERULAR FILTRATION RATE 45.9 (>45); POTASSIUM SERUM 4.6 MMOL/L (3.5-5.1); TOTAL PROTEIN 7.3 G/DL (5.7-8.2)
[2023-11-06 17:38] LABS: FREE T4 1.08 NG/DL (0.89-1.76); THYROID STIMULATING HORMONE 1.428 uIU/ML (0.55-4.78)
[2023-11-06 17:41] LABS: FREE T3 2.6 PG/ML (2.3-4.2)
== END ==
LOC: M LAB REF 16:30 → M LABWUC 16:30
PROVIDERS: ATTEND Nurse Practitioner
DX: C67.9 Malignant neoplasm of bladder, unspecified (principal)

== ENCOUNTER → 2023-11-27 | Outpatient (REF) | payer BC ==
[2023-11-27 10:13] LABS: BASO # 0.1 10^3/uL (0.0-0.2); BASO % 0.9 % (0.0-1.0); EOS # 0.1 10^3/uL (0.0-0.5); EOS % 0.9 % (0.0-3.0); HEMATOCRIT 36.4 % (36.0-47.0); HEMOGLOBIN 11.9 g/dl (12.0-15.5); LYMPH % 18.4 % (24.0-44.0); MEAN CORPUSCULAR HGB CONC 32.7 g/dl (32.0-36.5); MEAN CORPUSCULAR VOLUME 94.8 fl (80.0-96.0); MONO # 1.2 10^3/uL (0.0-0.8); MONO % 10.9 % (2.0-8.0); NEUTROPHILS # 7.2 10^3/uL (1.5-8.5); PLATELET COUNT, AUTOMATED 769 10^3/uL (150-450); RED BLOOD COUNT 3.84 10^6/uL (4.00-5.40); WHITE BLOOD COUNT 10.6 10^3/uL (4.0-10.0)
[2023-11-27 10:42] LABS: ALBUMIN 3.6 G/DL (3.2-5.2); BILIRUBIN,TOTAL 0.2 MG/DL (0.3-1.2); CALCIUM LEVEL 9.9 MG/DL (8.3-10.6); CREATININE FOR GFR 1.36 MG/DL (0.55-1.30); FREE T3 2.9 PG/ML (2.3-4.2); FREE T4 0.96 NG/DL (0.89-1.76); GLOMERULAR FILTRATION RATE 41.7 (>45); THYROID STIMULATING HORMONE 1.785 uIU/ML (0.55-4.78); TOTAL PROTEIN 7.3 G/DL (5.7-8.2)
== END ==
LOC: M LABWUC 09:25
PROVIDERS: ATTEND Nurse Practitioner
DX: C67.9 Malignant neoplasm of bladder, unspecified (principal)

== ENCOUNTER → 2023-12-01 | Outpatient (REF) | payer BC | LOC: M LAB REF 13:12 | PROVIDERS: ATTEND Nurse Practitioner Family | DX: R11.2 Nausea with vomiting, unspecified (principal) ==

== ENCOUNTER → 2023-12-04 | Outpatient (REF) | payer BC ==
[~2023-12-04] MED LIST changes: +LEXA1TAB PO; +NITR100C2; +PROM25TA12
[2023-12-04 11:40] LABS: BASO # 0.1 10^3/uL (0.0-0.2); BASO % 0.9 % (0.0-1.0); EOS # 0.2 10^3/uL (0.0-0.5); EOS % 1.3 % (0.0-3.0); HEMATOCRIT 32.5 % (36.0-47.0); HEMOGLOBIN 10.5 g/dl (12.0-15.5); LYMPH # 2.2 10^3/uL (1.5-5.0); LYMPH % 19.4 % (24.0-44.0); MEAN CORPUSCULAR HEMOGLOBIN 30.7 pg (27.0-33.0); MEAN CORPUSCULAR HGB CONC 32.3 g/dl (32.0-36.5); MONO # 1.1 10^3/uL (0.0-0.8); MONO % 9.7 % (2.0-8.0); NEUTROPHILS # 7.8 10^3/uL (1.5-8.5); NEUTROPHILS % 68.2 % (36.0-66.0); PLATELET COUNT, AUTOMATED 554 10^3/uL (150-450); RED BLOOD COUNT 3.42 10^6/uL (4.00-5.40); WHITE BLOOD COUNT 11.4 10^3/uL (4.0-10.0)
[2023-12-04 12:05] LABS: ALBUMIN 3.5 G/DL (3.2-5.2); BILIRUBIN,TOTAL 0.4 MG/DL (0.3-1.2); CALCIUM LEVEL 9.2 MG/DL (8.3-10.6); CREATININE FOR GFR 1.12 MG/DL (0.55-1.30); GLOMERULAR FILTRATION RATE 52.1 (>45); POTASSIUM SERUM 4.3 MMOL/L (3.5-5.1); TOTAL PROTEIN 7.3 G/DL (5.7-8.2)
[2023-12-04 12:07] LABS: FREE T4 1.11 NG/DL (0.89-1.76)
[2023-12-04 12:08] LABS: THYROID STIMULATING HORMONE 0.688 uIU/ML (0.55-4.78)
[2023-12-04 12:10] LABS: FREE T3 2.6 PG/ML (2.3-4.2)
== END ==
LOC: M LABWUC 10:27
PROVIDERS: ATTEND Nurse Practitioner
DX: C67.9 Malignant neoplasm of bladder, unspecified (principal)

== ENCOUNTER → 2023-12-17 | Outpatient (CLI) | payer BC ==
[~2023-12-17] MED LIST changes: +GASTROGRAFIN SOLUTION 30ML As Ordered ONE
== END ==
LOC: M RAD 14:54
PROVIDERS: ATTEND Nurse Practitioner
DX: C67.9 Malignant neoplasm of bladder, unspecified (principal); K76.89 Other specified diseases of liver; N28.1 Cyst of kidney, acquired; Z95.828 Presence of other vascular implants and grafts
CPT/HCPCS: 71250; 74176; Q9963

== ENCOUNTER → 2023-12-18 | Outpatient (REF) | payer BC ==
[~2023-12-18] MED LIST changes: -GASTROGRAFIN SOLUTION 30ML As Ordered ONE
[2023-12-18 11:43] LABS: BASO # 0.2 10^3/uL (0.0-0.2); BASO % 2.1 % (0.0-1.0); EOS # 0.2 10^3/uL (0.0-0.5); EOS % 2.1 % (0.0-3.0); HEMATOCRIT 36.7 % (36.0-47.0); HEMOGLOBIN 11.6 g/dl (12.0-15.5); LYMPH % 25.3 % (24.0-44.0); MEAN CORPUSCULAR HEMOGLOBIN 30.9 pg (27.0-33.0); MEAN CORPUSCULAR HGB CONC 31.6 g/dl (32.0-36.5); MEAN CORPUSCULAR VOLUME 97.6 fl (80.0-96.0); MONO # 0.6 10^3/uL (0.0-0.8); MONO % 7.1 % (2.0-8.0); NEUTROPHILS # 4.9 10^3/uL (1.5-8.5); NEUTROPHILS % 62.9 % (36.0-66.0); PLATELET COUNT, AUTOMATED 623 10^3/uL (150-450); RED BLOOD COUNT 3.76 10^6/uL (4.00-5.40); WHITE BLOOD COUNT 7.7 10^3/uL (4.0-10.0)
[2023-12-18 11:46] LABS: BILIRUBIN,TOTAL 0.3 MG/DL (0.3-1.2); CALCIUM LEVEL 9.6 MG/DL (8.3-10.6); CREATININE FOR GFR 1.15 MG/DL (0.55-1.30); GLOMERULAR FILTRATION RATE 50.6 (>45); POTASSIUM SERUM 4.6 MMOL/L (3.5-5.1); TOTAL PROTEIN 7.6 G/DL (5.7-8.2)
[2023-12-18 11:49] LABS: FREE T4 0.97 NG/DL (0.89-1.76); THYROID STIMULATING HORMONE 1.052 uIU/ML (0.55-4.78)
[2023-12-18 11:54] LABS: FREE T3 2.6 PG/ML (2.3-4.2)
== END ==
LOC: M LABWUC 09:45
PROVIDERS: ATTEND Nurse Practitioner
DX: C67.9 Malignant neoplasm of bladder, unspecified (principal)

== ENCOUNTER → 2023-12-31 | Outpatient (REF) | payer BC ==
[2023-12-31 11:26] LABS: BASO # 0.1 10^3/uL (0.0-0.2); BASO % 1.1 % (0.0-1.0); EOS # 0.1 10^3/uL (0.0-0.5); EOS % 1.5 % (0.0-3.0); HEMATOCRIT 36.5 % (36.0-47.0); HEMOGLOBIN 11.5 g/dl (12.0-15.5); LYMPH # 1.9 10^3/uL (1.5-5.0); MEAN CORPUSCULAR HGB CONC 31.5 g/dl (32.0-36.5); MEAN CORPUSCULAR VOLUME 95.3 fl (80.0-96.0); MONO % 10.3 % (2.0-8.0); NEUTROPHILS # 6.3 10^3/uL (1.5-8.5); NEUTROPHILS % 66.6 % (36.0-66.0); PLATELET COUNT, AUTOMATED 618 10^3/uL (150-450); RED BLOOD COUNT 3.83 10^6/uL (4.00-5.40); WHITE BLOOD COUNT 9.5 10^3/uL (4.0-10.0)
[2023-12-31 11:49] LABS: FREE T4 1.04 NG/DL (0.89-1.76); THYROID STIMULATING HORMONE 1.462 uIU/ML (0.55-4.78)
[2023-12-31 11:53] LABS: ALBUMIN 3.9 G/DL (3.2-5.2); BILIRUBIN,TOTAL 0.3 MG/DL (0.3-1.2); CALCIUM LEVEL 9.6 MG/DL (8.3-10.6); CREATININE FOR GFR 1.21 MG/DL (0.55-1.30); GLOMERULAR FILTRATION RATE 47.7 (>45); POTASSIUM SERUM 4.7 MMOL/L (3.5-5.1); TOTAL PROTEIN 7.4 G/DL (5.7-8.2)
== END ==
LOC: M LABWUC 10:15
PROVIDERS: ATTEND Nurse Practitioner
DX: C67.9 Malignant neoplasm of bladder, unspecified (principal)

== ENCOUNTER → 2024-01-15 | Outpatient (REF) | payer BC ==
[2024-01-15 11:31] LABS: BASO # 0.1 10^3/uL (0.0-0.2); BASO % 0.9 % (0.0-1.0); EOS # 0.1 10^3/uL (0.0-0.5); EOS % 0.7 % (0.0-3.0); HEMATOCRIT 36.5 % (36.0-47.0); HEMOGLOBIN 11.7 g/dl (12.0-15.5); LYMPH # 1.7 10^3/uL (1.5-5.0); LYMPH % 16.6 % (24.0-44.0); MEAN CORPUSCULAR HEMOGLOBIN 30.1 pg (27.0-33.0); MEAN CORPUSCULAR HGB CONC 32.1 g/dl (32.0-36.5); MEAN CORPUSCULAR VOLUME 93.8 fl (80.0-96.0); MONO % 9.8 % (2.0-8.0); NEUTROPHILS # 7.2 10^3/uL (1.5-8.5); NEUTROPHILS % 71.6 % (36.0-66.0); PLATELET COUNT, AUTOMATED 513 10^3/uL (150-450); RED BLOOD COUNT 3.89 10^6/uL (4.00-5.40)
[2024-01-15 11:55] LABS: ALBUMIN 3.9 G/DL (3.2-5.2); BILIRUBIN,TOTAL 0.4 MG/DL (0.3-1.2); CALCIUM LEVEL 9.7 MG/DL (8.3-10.6); CREATININE FOR GFR 1.24 MG/DL (0.55-1.30); GLOMERULAR FILTRATION RATE 46.4 (>45); POTASSIUM SERUM 4.6 MMOL/L (3.5-5.1); TOTAL PROTEIN 7.3 G/DL (5.7-8.2)
== END ==
LOC: M LABWUC 10:24
PROVIDERS: ATTEND Nurse Practitioner
DX: C67.9 Malignant neoplasm of bladder, unspecified (principal)

== ENCOUNTER → 2024-01-25 | Outpatient (CLI) | payer BC | LOC: M RAD 09:03 | PROVIDERS: ATTEND Physician Assistant | DX: R07.9 Chest pain, unspecified (principal); M25.512 Pain in left shoulder; Z95.828 Presence of other vascular implants and grafts ==

== ENCOUNTER → 2024-01-29 | Outpatient (REF) | payer BC ==
[2024-01-29 13:42] LABS: BASO % 0.2 % (0.0-1.0); EOS % 0.1 % (0.0-3.0); HEMATOCRIT 35.1 % (36.0-47.0); HEMOGLOBIN 11.2 g/dl (12.0-15.5); LYMPH # 2.5 10^3/uL (1.5-5.0); MEAN CORPUSCULAR HGB CONC 31.9 g/dl (32.0-36.5); MEAN CORPUSCULAR VOLUME 94.1 fl (80.0-96.0); MONO # 1.3 10^3/uL (0.0-0.8); MONO % 10.7 % (2.0-8.0); NEUTROPHILS # 8.4 10^3/uL (1.5-8.5); NEUTROPHILS % 68.3 % (36.0-66.0); PLATELET COUNT, AUTOMATED 549 10^3/uL (150-450); RED BLOOD COUNT 3.73 10^6/uL (4.00-5.40); WHITE BLOOD COUNT 12.3 10^3/uL (4.0-10.0)
[2024-01-29 14:30] LABS: ALBUMIN 3.7 G/DL (3.2-5.2); BILIRUBIN,TOTAL 0.3 MG/DL (0.3-1.2); CALCIUM LEVEL 9.8 MG/DL (8.3-10.6); CREATININE FOR GFR 1.17 MG/DL (0.55-1.30); FREE T3 2.5 PG/ML (2.3-4.2); FREE T4 1.02 NG/DL (0.89-1.76); GLOMERULAR FILTRATION RATE 49.6 (>45); POTASSIUM SERUM 4.1 MMOL/L (3.5-5.1); THYROID STIMULATING HORMONE 0.503 uIU/ML (0.55-4.78); TOTAL PROTEIN 7.2 G/DL (5.7-8.2)
== END ==
LOC: M LABWUC 11:56
PROVIDERS: ATTEND Nurse Practitioner
DX: C67.9 Malignant neoplasm of bladder, unspecified (principal)

== ENCOUNTER → 2024-02-11 | Outpatient (REF) | payer BC ==
[2024-02-11 15:23] LABS: BASO # 0.1 10^3/uL (0.0-0.2); BASO % 0.8 % (0.0-1.0); EOS # 0.1 10^3/uL (0.0-0.5); EOS % 0.7 % (0.0-3.0); HEMATOCRIT 35.1 % (36.0-47.0); LYMPH % 16.9 % (24.0-44.0); MEAN CORPUSCULAR HGB CONC 31.3 g/dl (32.0-36.5); MEAN CORPUSCULAR VOLUME 92.6 fl (80.0-96.0); NEUTROPHILS # 8.7 10^3/uL (1.5-8.5); NEUTROPHILS % 72.9 % (36.0-66.0); PLATELET COUNT, AUTOMATED 619 10^3/uL (150-450); RED BLOOD COUNT 3.79 10^6/uL (4.00-5.40); WHITE BLOOD COUNT 11.9 10^3/uL (4.0-10.0)
[2024-02-11 15:43] LABS: ALBUMIN 3.6 G/DL (3.2-5.2); BILIRUBIN,TOTAL 0.2 MG/DL (0.3-1.2); CALCIUM LEVEL 9.3 MG/DL (8.3-10.6); CREATININE FOR GFR 1.25 MG/DL (0.55-1.30); GLOMERULAR FILTRATION RATE 45.9 (>45); POTASSIUM SERUM 4.9 MMOL/L (3.5-5.1); TOTAL PROTEIN 7.3 G/DL (5.7-8.2)
[2024-02-11 15:47] LABS: FREE T3 2.2 PG/ML (2.3-4.2); FREE T4 0.93 NG/DL (0.89-1.76); THYROID STIMULATING HORMONE 1.67 uIU/ML (0.55-4.78)
== END ==
LOC: M LABWUC 13:14
PROVIDERS: ATTEND Nurse Practitioner
DX: C67.9 Malignant neoplasm of bladder, unspecified (principal)

== ENCOUNTER → 2024-03-11 | Outpatient (REF) | payer BC ==
[2024-03-11 10:26] LABS: BASO # 0.1 10^3/uL (0.0-0.2); BASO % 1.2 % (0.0-1.0); EOS # 0.1 10^3/uL (0.0-0.5); EOS % 0.9 % (0.0-3.0); HEMATOCRIT 36.2 % (36.0-47.0); HEMOGLOBIN 11.5 g/dl (12.0-15.5); LYMPH # 1.9 10^3/uL (1.5-5.0); LYMPH % 22.7 % (24.0-44.0); MEAN CORPUSCULAR HEMOGLOBIN 29.2 pg (27.0-33.0); MEAN CORPUSCULAR HGB CONC 31.8 g/dl (32.0-36.5); MEAN CORPUSCULAR VOLUME 91.9 fl (80.0-96.0); MONO # 0.8 10^3/uL (0.0-0.8); MONO % 9.3 % (2.0-8.0); NEUTROPHILS # 5.5 10^3/uL (1.5-8.5); NEUTROPHILS % 65.4 % (36.0-66.0); PLATELET COUNT, AUTOMATED 491 10^3/uL (150-450); RED BLOOD COUNT 3.94 10^6/uL (4.00-5.40); WHITE BLOOD COUNT 8.4 10^3/uL (4.0-10.0)
[2024-03-11 10:47] LABS: BILIRUBIN,TOTAL 0.3 MG/DL (0.3-1.2); CALCIUM LEVEL 9.9 MG/DL (8.3-10.6); CREATININE FOR GFR 1.24 MG/DL (0.55-1.30); GLOMERULAR FILTRATION RATE 46.4 (>45); POTASSIUM SERUM 4.6 MMOL/L (3.5-5.1); TOTAL PROTEIN 7.5 G/DL (5.7-8.2)
[2024-03-11 10:49] LABS: FREE T4 1.06 NG/DL (0.89-1.76); THYROID STIMULATING HORMONE 1.257 uIU/ML (0.55-4.78)
== END ==
LOC: M LABWUC 09:43
PROVIDERS: ATTEND Specialist
DX: C67.9 Malignant neoplasm of bladder, unspecified (principal)

== ENCOUNTER → 2024-03-17 | Outpatient (CLI) | payer BC | LOC: M WHC 06:51 | PROVIDERS: ATTEND Family Medicine | DX: Z12.31 Encounter for screening mammogram for malignant neoplasm of breast (principal); Z85.3 Personal history of malignant neoplasm of breast; R92.333 Mammographic heterogeneous density, bilateral breasts; Z95.828 Presence of other vascular implants and grafts; Z92.3 Personal history of irradiation ==

== ENCOUNTER → 2024-03-25 | Outpatient (REF) | payer BC ==
[2024-03-25 11:23] LABS: BASO # 0.1 10^3/uL (0.0-0.2); BASO % 1.6 % (0.0-1.0); EOS # 0.1 10^3/uL (0.0-0.5); EOS % 1.1 % (0.0-3.0); LYMPH # 1.9 10^3/uL (1.5-5.0); LYMPH % 26.7 % (24.0-44.0); MEAN CORPUSCULAR HGB CONC 32.4 g/dl (32.0-36.5); MEAN CORPUSCULAR VOLUME 92.5 fl (80.0-96.0); MONO # 0.7 10^3/uL (0.0-0.8); MONO % 9.3 % (2.0-8.0); NEUTROPHILS # 4.2 10^3/uL (1.5-8.5); NEUTROPHILS % 60.9 % (36.0-66.0); PLATELET COUNT, AUTOMATED 509 10^3/uL (150-450)
[2024-03-25 11:30] LABS: BILIRUBIN,TOTAL 0.2 MG/DL (0.3-1.2); CALCIUM LEVEL 9.9 MG/DL (8.3-10.6); CREATININE FOR GFR 1.16 MG/DL (0.55-1.30); GLOMERULAR FILTRATION RATE 50.1 (>45); POTASSIUM SERUM 4.7 MMOL/L (3.5-5.1); THYROID STIMULATING HORMONE 1.17 uIU/ML (0.55-4.78); TOTAL PROTEIN 7.3 G/DL (5.7-8.2)
[2024-03-25 11:31] LABS: FREE T4 1.03 NG/DL (0.89-1.76)
[2024-03-25 11:34] LABS: FREE T3 2.8 PG/ML (2.3-4.2)
== END ==
LOC: M LAB REF 10:22 → M LABWUC 10:22
PROVIDERS: ATTEND Nurse Practitioner
DX: C67.9 Malignant neoplasm of bladder, unspecified (principal)

== ENCOUNTER → 2024-04-07 | Outpatient (REF) | payer BC ==
[~2024-04-07] MED LIST changes: +MV-M1TAB13 PO
[2024-04-07 11:41] LABS: BASO # 0.1 10^3/uL (0.0-0.2); BASO % 1.3 % (0.0-1.0); EOS # 0.1 10^3/uL (0.0-0.5); EOS % 1.6 % (0.0-3.0); HEMATOCRIT 40.3 % (36.0-47.0); HEMOGLOBIN 12.9 g/dl (12.0-15.5); LYMPH % 28.7 % (24.0-44.0); MEAN CORPUSCULAR HEMOGLOBIN 29.5 pg (27.0-33.0); MONO # 0.7 10^3/uL (0.0-0.8); NEUTROPHILS % 58.1 % (36.0-66.0); PLATELET COUNT, AUTOMATED 449 10^3/uL (150-450); RED BLOOD COUNT 4.38 10^6/uL (4.00-5.40); WHITE BLOOD COUNT 6.9 10^3/uL (4.0-10.0)
[2024-04-07 11:49] LABS: ALBUMIN 4.4 G/DL (3.2-5.2); BILIRUBIN,TOTAL 0.3 MG/DL (0.3-1.2); CALCIUM LEVEL 9.8 MG/DL (8.3-10.6); CREATININE FOR GFR 1.3 MG/DL (0.55-1.30); GLOMERULAR FILTRATION RATE 43.8 (>45); POTASSIUM SERUM 4.4 MMOL/L (3.5-5.1); TOTAL PROTEIN 7.6 G/DL (5.7-8.2)
[2024-04-07 11:51] LABS: FREE T3 2.9 PG/ML (2.3-4.2); FREE T4 1.02 NG/DL (0.89-1.76); THYROID STIMULATING HORMONE 1.068 uIU/ML (0.55-4.78)
== END ==
LOC: M LABWUC 10:18
PROVIDERS: ATTEND Specialist
DX: C67.9 Malignant neoplasm of bladder, unspecified (principal)

== ENCOUNTER → 2024-04-22 | Outpatient (REF) | payer BC ==
[2024-04-22 10:49] LABS: BASO # 0.1 10^3/uL (0.0-0.2); BASO % 1.1 % (0.0-1.0); EOS # 0.1 10^3/uL (0.0-0.5); HEMATOCRIT 38.2 % (36.0-47.0); HEMOGLOBIN 12.3 g/dl (12.0-15.5); LYMPH # 1.9 10^3/uL (1.5-5.0); LYMPH % 26.6 % (24.0-44.0); MEAN CORPUSCULAR HEMOGLOBIN 30.1 pg (27.0-33.0); MEAN CORPUSCULAR HGB CONC 32.2 g/dl (32.0-36.5); MEAN CORPUSCULAR VOLUME 93.4 fl (80.0-96.0); MONO # 0.7 10^3/uL (0.0-0.8); MONO % 9.3 % (2.0-8.0); NEUTROPHILS # 4.3 10^3/uL (1.5-8.5); NEUTROPHILS % 60.7 % (36.0-66.0); PLATELET COUNT, AUTOMATED 468 10^3/uL (150-450); RED BLOOD COUNT 4.09 10^6/uL (4.00-5.40)
[2024-04-22 11:17] LABS: BILIRUBIN,TOTAL 0.3 MG/DL (0.3-1.2); CALCIUM LEVEL 9.5 MG/DL (8.3-10.6); CREATININE FOR GFR 1.17 MG/DL (0.55-1.30); GLOMERULAR FILTRATION RATE 49.4 (>45); POTASSIUM SERUM 4.7 MMOL/L (3.5-5.1); TOTAL PROTEIN 7.1 G/DL (5.7-8.2)
[2024-04-22 11:22] LABS: FREE T4 0.9 NG/DL (0.89-1.76); THYROID STIMULATING HORMONE 1.403 uIU/ML (0.55-4.78)
[2024-04-22 11:39] LABS: FREE T3 2.8 PG/ML (2.3-4.2)
== END ==
LOC: M LABWUC 09:53
PROVIDERS: ATTEND Specialist
DX: C67.9 Malignant neoplasm of bladder, unspecified (principal)

== ENCOUNTER → 2024-05-06 | Outpatient (CLI) | payer BC ==
[2024-05-06 14:01] LABS: ALBUMIN 4.2 G/DL (3.2-5.2); BILIRUBIN,TOTAL 0.3 MG/DL (0.3-1.2); CALCIUM LEVEL 9.4 MG/DL (8.3-10.6); CREATININE FOR GFR 1.23 MG/DL (0.55-1.30); GLOMERULAR FILTRATION RATE 46.6 (>45); POTASSIUM SERUM 4.4 MMOL/L (3.5-5.1); THYROID STIMULATING HORMONE 1.227 uIU/ML (0.55-4.78); TOTAL PROTEIN 7.3 G/DL (5.7-8.2)
[2024-05-06 14:02] LABS: BASO # 0.1 10^3/uL (0.0-0.2); BASO % 0.9 % (0.0-1.0); EOS % 0.1 % (0.0-3.0); FREE T3 2.9 PG/ML (2.3-4.2); FREE T4 1.03 NG/DL (0.89-1.76); HEMATOCRIT 37.4 % (36.0-47.0); HEMOGLOBIN 12.1 g/dl (12.0-15.5); LYMPH # 1.8 10^3/uL (1.5-5.0); LYMPH % 14.7 % (24.0-44.0); MEAN CORPUSCULAR HEMOGLOBIN 30.1 pg (27.0-33.0); MEAN CORPUSCULAR HGB CONC 32.4 g/dl (32.0-36.5); MONO # 0.9 10^3/uL (0.0-0.8); MONO % 7.4 % (2.0-8.0); NEUTROPHILS # 9.6 10^3/uL (1.5-8.5); NEUTROPHILS % 76.5 % (36.0-66.0); PLATELET COUNT, AUTOMATED 448 10^3/uL (150-450); RED BLOOD COUNT 4.02 10^6/uL (4.00-5.40); WHITE BLOOD COUNT 12.5 10^3/uL (4.0-10.0)
== END ==
LOC: M WUC 07:48
PROVIDERS: ATTEND Nurse Practitioner
DX: C67.9 Malignant neoplasm of bladder, unspecified (principal)

== ENCOUNTER → 2024-05-20 | Outpatient (REF) | payer BC ==
[2024-05-20 17:33] LABS: BASO # 0.1 10^3/uL (0.0-0.2); BASO % 1.2 % (0.0-1.0); EOS # 0.1 10^3/uL (0.0-0.5); EOS % 1.1 % (0.0-3.0); HEMATOCRIT 37.6 % (36.0-47.0); HEMOGLOBIN 12.4 g/dl (12.0-15.5); LYMPH # 2.3 10^3/uL (1.5-5.0); LYMPH % 27.5 % (24.0-44.0); MEAN CORPUSCULAR HEMOGLOBIN 30.7 pg (27.0-33.0); MEAN CORPUSCULAR VOLUME 93.1 fl (80.0-96.0); MONO # 0.9 10^3/uL (0.0-0.8); MONO % 10.9 % (2.0-8.0); NEUTROPHILS # 4.9 10^3/uL (1.5-8.5); NEUTROPHILS % 59.1 % (36.0-66.0); PLATELET COUNT, AUTOMATED 443 10^3/uL (150-450); RED BLOOD COUNT 4.04 10^6/uL (4.00-5.40); WHITE BLOOD COUNT 8.3 10^3/uL (4.0-10.0)
[2024-05-20 17:40] LABS: ALBUMIN 3.8 G/DL (3.2-5.2); BILIRUBIN,TOTAL 0.3 MG/DL (0.3-1.2); CALCIUM LEVEL 9.5 MG/DL (8.3-10.6); CREATININE FOR GFR 1.28 MG/DL (0.55-1.30); GLOMERULAR FILTRATION RATE 44.6 (>45); POTASSIUM SERUM 4.2 MMOL/L (3.5-5.1); TOTAL PROTEIN 7.1 G/DL (5.7-8.2)
[2024-05-20 17:43] LABS: FREE T4 1.09 NG/DL (0.89-1.76); THYROID STIMULATING HORMONE 0.683 uIU/ML (0.55-4.78)
== END ==
LOC: M LABDRWAD 17:01
PROVIDERS: ATTEND Specialist
DX: C67.9 Malignant neoplasm of bladder, unspecified (principal)

== ENCOUNTER → 2024-06-03 | Outpatient (CLI) | payer BC ==
[2024-06-03 10:36] LABS: BASO # 0.1 10^3/uL (0.0-0.2); BASO % 0.8 % (0.0-1.0); EOS # 0.1 10^3/uL (0.0-0.5); EOS % 0.9 % (0.0-3.0); HEMATOCRIT 39.5 % (36.0-47.0); HEMOGLOBIN 12.6 g/dl (12.0-15.5); LYMPH # 1.8 10^3/uL (1.5-5.0); LYMPH % 15.1 % (24.0-44.0); MEAN CORPUSCULAR HGB CONC 31.9 g/dl (32.0-36.5); MONO # 1.1 10^3/uL (0.0-0.8); MONO % 8.9 % (2.0-8.0); NEUTROPHILS # 8.8 10^3/uL (1.5-8.5); NEUTROPHILS % 73.9 % (36.0-66.0); PLATELET COUNT, AUTOMATED 448 10^3/uL (150-450); WHITE BLOOD COUNT 11.9 10^3/uL (4.0-10.0)
[2024-06-03 10:43] LABS: ALBUMIN 4.1 G/DL (3.2-5.2); BILIRUBIN,TOTAL 0.3 MG/DL (0.3-1.2); CALCIUM LEVEL 9.6 MG/DL (8.3-10.6); CREATININE FOR GFR 1.22 MG/DL (0.55-1.30); GLOMERULAR FILTRATION RATE 47.1 (>45); POTASSIUM SERUM 4.4 MMOL/L (3.5-5.1); TOTAL PROTEIN 7.3 G/DL (5.7-8.2)
[2024-06-03 10:44] LABS: THYROID STIMULATING HORMONE 1.67 uIU/ML (0.55-4.78)
[2024-06-03 10:45] LABS: FREE T3 2.9 PG/ML (2.3-4.2); FREE T4 1.12 NG/DL (0.89-1.76)
== END ==
LOC: M WUC 07:52
PROVIDERS: ATTEND Nurse Practitioner
DX: C67.9 Malignant neoplasm of bladder, unspecified (principal)

== ENCOUNTER → 2024-06-17 | Outpatient (CLI) | payer BC ==
[2024-06-17 10:03] LABS: BASO # 0.1 10^3/uL (0.0-0.2); BASO % 1.4 % (0.0-1.0); EOS # 0.1 10^3/uL (0.0-0.5); EOS % 1.7 % (0.0-3.0); HEMATOCRIT 39.6 % (36.0-47.0); LYMPH % 31.2 % (24.0-44.0); MEAN CORPUSCULAR HEMOGLOBIN 30.7 pg (27.0-33.0); MEAN CORPUSCULAR HGB CONC 32.8 g/dl (32.0-36.5); MEAN CORPUSCULAR VOLUME 93.6 fl (80.0-96.0); MONO # 0.8 10^3/uL (0.0-0.8); MONO % 12.6 % (2.0-8.0); NEUTROPHILS # 3.4 10^3/uL (1.5-8.5); NEUTROPHILS % 52.9 % (36.0-66.0); PLATELET COUNT, AUTOMATED 434 10^3/uL (150-450); RED BLOOD COUNT 4.23 10^6/uL (4.00-5.40); WHITE BLOOD COUNT 6.4 10^3/uL (4.0-10.0)
[2024-06-17 10:32] LABS: ALBUMIN 3.8 G/DL (3.2-5.2); BILIRUBIN,TOTAL 0.3 MG/DL (0.3-1.2); CALCIUM LEVEL 9.8 MG/DL (8.3-10.6); CREATININE FOR GFR 1.33 MG/DL (0.55-1.30); GLOMERULAR FILTRATION RATE 42.6 (>45); POTASSIUM SERUM 4.7 MMOL/L (3.5-5.1); TOTAL PROTEIN 7.2 G/DL (5.7-8.2)
[2024-06-17 10:34] LABS: FREE T4 1.02 NG/DL (0.89-1.76); THYROID STIMULATING HORMONE 1.042 uIU/ML (0.55-4.78)
[2024-06-17 10:36] LABS: FREE T3 2.9 PG/ML (2.3-4.2)
== END ==
LOC: M WUC 08:57
PROVIDERS: ATTEND Nurse Practitioner
DX: C67.9 Malignant neoplasm of bladder, unspecified (principal)

== ENCOUNTER → 2024-06-17 | Outpatient (CLI) | payer BC | LOC: M RAD 08:33 | PROVIDERS: ATTEND Internal Medicine Medical Oncology | DX: C67.9 Malignant neoplasm of bladder, unspecified (principal); K76.89 Other specified diseases of liver; N28.1 Cyst of kidney, acquired; Z95.0 Presence of cardiac pacemaker ==

== ENCOUNTER → 2024-06-30 | Outpatient (REF) | payer BC ==
[2024-06-30 14:37] LABS: BASO # 0.1 10^3/uL (0.0-0.2); BASO % 1.3 % (0.0-1.0); EOS # 0.2 10^3/uL (0.0-0.5); EOS % 2.6 % (0.0-3.0); HEMATOCRIT 41.2 % (36.0-47.0); HEMOGLOBIN 13.4 g/dl (12.0-15.5); LYMPH # 2.3 10^3/uL (1.5-5.0); LYMPH % 37.8 % (24.0-44.0); MEAN CORPUSCULAR HEMOGLOBIN 30.5 pg (27.0-33.0); MEAN CORPUSCULAR HGB CONC 32.5 g/dl (32.0-36.5); MEAN CORPUSCULAR VOLUME 93.6 fl (80.0-96.0); MONO # 0.6 10^3/uL (0.0-0.8); MONO % 10.4 % (2.0-8.0); NEUTROPHILS # 2.9 10^3/uL (1.5-8.5); NEUTROPHILS % 47.6 % (36.0-66.0); PLATELET COUNT, AUTOMATED 405 10^3/uL (150-450); WHITE BLOOD COUNT 6.1 10^3/uL (4.0-10.0)
[2024-06-30 15:10] LABS: ALBUMIN 3.9 G/DL (3.2-5.2); BILIRUBIN,TOTAL 0.2 MG/DL (0.3-1.2); CALCIUM LEVEL 9.8 MG/DL (8.3-10.6); CREATININE FOR GFR 1.21 MG/DL (0.55-1.30); GLOMERULAR FILTRATION RATE 47.5 (>45); TOTAL PROTEIN 7.5 G/DL (5.7-8.2)
[2024-06-30 15:11] LABS: THYROID STIMULATING HORMONE 1.214 uIU/ML (0.55-4.78)
[2024-06-30 15:12] LABS: FREE T4 1.04 NG/DL (0.89-1.76)
[2024-06-30 15:14] LABS: FREE T3 2.7 PG/ML (2.3-4.2)
== END ==
LOC: M LABWUC 13:06
PROVIDERS: ATTEND Specialist
DX: C67.9 Malignant neoplasm of bladder, unspecified (principal)

== ENCOUNTER → 2024-08-11 | Outpatient (CLI) | payer MEDICARE, MEDICAID ==
[~2024-08-11] MED LIST changes: +LEXA5TAB13 PO; -POTA540T PO; +POTA540T5 PO
[2024-08-11 12:37] LABS: BASO # 0.1 10^3/uL (0.0-0.2); BASO % 1.6 % (0.0-1.0); EOS # 0.1 10^3/uL (0.0-0.5); EOS % 1.9 % (0.0-3.0); HEMATOCRIT 38.5 % (36.0-47.0); HEMOGLOBIN 12.4 g/dl (12.0-15.5); LYMPH # 1.9 10^3/uL (1.5-5.0); LYMPH % 27.1 % (24.0-44.0); MEAN CORPUSCULAR HEMOGLOBIN 30.5 pg (27.0-33.0); MEAN CORPUSCULAR HGB CONC 32.2 g/dl (32.0-36.5); MEAN CORPUSCULAR VOLUME 94.6 fl (80.0-96.0); MONO # 0.7 10^3/uL (0.0-0.8); MONO % 10.5 % (2.0-8.0); NEUTROPHILS # 4.1 10^3/uL (1.5-8.5); NEUTROPHILS % 58.6 % (36.0-66.0); PLATELET COUNT, AUTOMATED 438 10^3/uL (150-450); RED BLOOD COUNT 4.07 10^6/uL (4.00-5.40); WHITE BLOOD COUNT 6.9 10^3/uL (4.0-10.0)
[2024-08-11 12:56] LABS: ALBUMIN 3.7 G/DL (3.2-5.2); BILIRUBIN,TOTAL 0.3 MG/DL (0.3-1.2); CALCIUM LEVEL 9.6 MG/DL (8.3-10.6); CREATININE FOR GFR 1.3 MG/DL (0.55-1.30); GLOMERULAR FILTRATION RATE 43.8 (>45); POTASSIUM SERUM 4.3 MMOL/L (3.5-5.1); TOTAL PROTEIN 7.2 G/DL (5.7-8.2)
[2024-08-11 12:58] LABS: FREE T4 0.99 NG/DL (0.89-1.76); THYROID STIMULATING HORMONE 1.637 uIU/ML (0.55-4.78)
[2024-08-11 13:01] LABS: FREE T3 2.6 PG/ML (2.3-4.2)
== END ==
LOC: M WUC 09:22
PROVIDERS: ATTEND Nurse Practitioner
DX: C67.9 Malignant neoplasm of bladder, unspecified (principal); Z79.899 Other long term (current) drug therapy

== ENCOUNTER → 2024-08-26 | Outpatient (CLI) | payer BC, MEDICARE, MEDICAID ==
[~2024-08-26] MED LIST changes: +POTA540T PO; -POTA540T5 PO
[2024-08-26 18:25] LABS: BASO # 0.1 10^3/uL (0.0-0.2); BASO % 1.6 % (0.0-1.0); EOS # 0.1 10^3/uL (0.0-0.5); EOS % 1.4 % (0.0-3.0); HEMOGLOBIN 12.9 g/dl (12.0-15.5); LYMPH # 2.6 10^3/uL (1.5-5.0); LYMPH % 32.5 % (24.0-44.0); MEAN CORPUSCULAR HEMOGLOBIN 31.1 pg (27.0-33.0); MEAN CORPUSCULAR HGB CONC 32.3 g/dl (32.0-36.5); MEAN CORPUSCULAR VOLUME 96.4 fl (80.0-96.0); MONO # 0.7 10^3/uL (0.0-0.8); NEUTROPHILS # 4.4 10^3/uL (1.5-8.5); NEUTROPHILS % 55.2 % (36.0-66.0); PLATELET COUNT, AUTOMATED 448 10^3/uL (150-450); RED BLOOD COUNT 4.15 10^6/uL (4.00-5.40)
[2024-08-26 18:51] LABS: ALBUMIN 4.1 G/DL (3.2-5.2); BILIRUBIN,TOTAL 0.3 MG/DL (0.3-1.2); CALCIUM LEVEL 9.6 MG/DL (8.3-10.6); CREATININE FOR GFR 1.17 MG/DL (0.55-1.30); GLOMERULAR FILTRATION RATE 49.4 (>45); POTASSIUM SERUM 4.1 MMOL/L (3.5-5.1); TOTAL PROTEIN 7.4 G/DL (5.7-8.2)
[2024-08-26 18:53] LABS: THYROID STIMULATING HORMONE 1.594 uIU/ML (0.55-4.78)
[2024-08-26 18:55] LABS: FREE T3 2.8 PG/ML (2.3-4.2)
== END ==
LOC: M WUC 12:31
PROVIDERS: ATTEND Nurse Practitioner
DX: C67.9 Malignant neoplasm of bladder, unspecified (principal); Z79.899 Other long term (current) drug therapy

== ENCOUNTER → 2024-09-09 | Outpatient (REF) | payer MEDICARE, MEDICAID ==
[~2024-09-09] MED LIST changes: -POTA540T PO; +POTA540T5 PO
[2024-09-09 17:32] LABS: BASO # 0.1 10^3/uL (0.0-0.2); BASO % 1.1 % (0.0-1.0); EOS # 0.1 10^3/uL (0.0-0.5); EOS % 0.7 % (0.0-3.0); HEMATOCRIT 37.1 % (36.0-47.0); HEMOGLOBIN 12.7 g/dl (12.0-15.5); LYMPH # 2.4 10^3/uL (1.5-5.0); LYMPH % 33.5 % (24.0-44.0); MEAN CORPUSCULAR HEMOGLOBIN 32.7 pg (27.0-33.0); MEAN CORPUSCULAR HGB CONC 34.2 g/dl (32.0-36.5); MEAN CORPUSCULAR VOLUME 95.6 fl (80.0-96.0); MONO % 13.4 % (2.0-8.0); NEUTROPHILS # 3.6 10^3/uL (1.5-8.5); PLATELET COUNT, AUTOMATED 439 10^3/uL (150-450); RED BLOOD COUNT 3.88 10^6/uL (4.00-5.40); WHITE BLOOD COUNT 7.1 10^3/uL (4.0-10.0)
[2024-09-09 18:08] LABS: ALBUMIN 4.1 G/DL (3.2-5.2); BILIRUBIN,TOTAL 0.4 MG/DL (0.3-1.2); CREATININE FOR GFR 1.22 MG/DL (0.55-1.30); GLOMERULAR FILTRATION RATE 47.1 (>45); PERCENT SATURATION 19.4 % (13.2-45.0); POTASSIUM SERUM 4.9 MMOL/L (3.5-5.1); TOTAL PROTEIN 7.4 G/DL (5.7-8.2)
[2024-09-09 18:09] LABS: FREE T4 1.15 NG/DL (0.89-1.76); THYROID STIMULATING HORMONE 1.001 uIU/ML (0.55-4.78)
[2024-09-09 18:10] LABS: FERRITIN 26.7 NG/ML (7.3-270.7)
[2024-09-09 18:12] LABS: FREE T3 3.1 PG/ML (2.3-4.2)
== END ==
LOC: M LABDRWAD 17:08
PROVIDERS: ATTEND Specialist
DX: C67.9 Malignant neoplasm of bladder, unspecified (principal); Z79.899 Other long term (current) drug therapy

== ENCOUNTER → 2024-09-23 | Outpatient (REF) | payer MEDICARE, MEDICAID ==
[2024-09-23 17:30] LABS: BASO # 0.1 10^3/uL (0.0-0.2); BASO % 1.5 % (0.0-1.0); EOS # 0.1 10^3/uL (0.0-0.5); EOS % 0.8 % (0.0-3.0); HEMOGLOBIN 12.3 g/dl (12.0-15.5); LYMPH # 2.3 10^3/uL (1.5-5.0); LYMPH % 26.4 % (24.0-44.0); MEAN CORPUSCULAR HEMOGLOBIN 30.3 pg (27.0-33.0); MEAN CORPUSCULAR HGB CONC 31.5 g/dl (32.0-36.5); MEAN CORPUSCULAR VOLUME 96.1 fl (80.0-96.0); MONO # 0.8 10^3/uL (0.0-0.8); MONO % 8.7 % (2.0-8.0); NEUTROPHILS # 5.5 10^3/uL (1.5-8.5); NEUTROPHILS % 62.4 % (36.0-66.0); PLATELET COUNT, AUTOMATED 493 10^3/uL (150-450); RED BLOOD COUNT 4.06 10^6/uL (4.00-5.40); WHITE BLOOD COUNT 8.9 10^3/uL (4.0-10.0)
[2024-09-23 18:03] LABS: BILIRUBIN,TOTAL 0.3 MG/DL (0.3-1.2); CALCIUM LEVEL 9.9 MG/DL (8.3-10.6); CREATININE FOR GFR 1.09 MG/DL (0.55-1.30); FREE T4 0.99 NG/DL (0.89-1.76); GLOMERULAR FILTRATION RATE 53.6 (>45); POTASSIUM SERUM 4.5 MMOL/L (3.5-5.1)
[2024-09-23 18:04] LABS: FREE T3 2.9 PG/ML (2.3-4.2); THYROID STIMULATING HORMONE 1.038 uIU/ML (0.55-4.78)
== END ==
LOC: M LABWUC 16:34
PROVIDERS: ATTEND Specialist
DX: C67.9 Malignant neoplasm of bladder, unspecified (principal); Z79.899 Other long term (current) drug therapy

== ENCOUNTER → 2024-10-07 | Outpatient (CLI) | payer MEDICARE, MEDICAID ==
[2024-10-07 18:35] LABS: BASO # 0.1 10^3/uL (0.0-0.2); BASO % 1.1 % (0.0-1.0); EOS # 0.1 10^3/uL (0.0-0.5); HEMATOCRIT 38.8 % (36.0-47.0); HEMOGLOBIN 12.4 g/dl (12.0-15.5); LYMPH # 1.9 10^3/uL (1.5-5.0); LYMPH % 22.1 % (24.0-44.0); MEAN CORPUSCULAR HEMOGLOBIN 30.5 pg (27.0-33.0); MEAN CORPUSCULAR VOLUME 95.6 fl (80.0-96.0); MONO # 0.7 10^3/uL (0.0-0.8); MONO % 8.4 % (2.0-8.0); NEUTROPHILS # 5.6 10^3/uL (1.5-8.5); PLATELET COUNT, AUTOMATED 437 10^3/uL (150-450); RED BLOOD COUNT 4.06 10^6/uL (4.00-5.40); WHITE BLOOD COUNT 8.4 10^3/uL (4.0-10.0)
[2024-10-07 19:01] LABS: BILIRUBIN,TOTAL 0.2 MG/DL (0.3-1.2); CALCIUM LEVEL 9.5 MG/DL (8.3-10.6); CREATININE FOR GFR 1.15 MG/DL (0.55-1.30); GLOMERULAR FILTRATION RATE 50.4 (>45); POTASSIUM SERUM 4.5 MMOL/L (3.5-5.1); TOTAL PROTEIN 7.2 G/DL (5.7-8.2)
[2024-10-07 19:03] LABS: FREE T4 0.95 NG/DL (0.89-1.76); THYROID STIMULATING HORMONE 1.154 uIU/ML (0.55-4.78)
[2024-10-07 19:05] LABS: TOTAL T3 75.4 NG/DL (60.0-181.0)
== END ==
LOC: M WUC 12:21
PROVIDERS: ATTEND Nurse Practitioner
DX: C67.9 Malignant neoplasm of bladder, unspecified (principal); E07.9 Disorder of thyroid, unspecified

== ENCOUNTER → 2024-10-21 | Outpatient (REF) | payer MEDICARE, MEDICAID ==
[2024-10-21 17:24] LABS: BASO # 0.1 10^3/uL (0.0-0.2); BASO % 1.2 % (0.0-1.0); EOS # 0.1 10^3/uL (0.0-0.5); EOS % 0.8 % (0.0-3.0); HEMATOCRIT 38.3 % (36.0-47.0); HEMOGLOBIN 12.5 g/dl (12.0-15.5); LYMPH # 2.3 10^3/uL (1.5-5.0); LYMPH % 26.6 % (24.0-44.0); MEAN CORPUSCULAR HGB CONC 32.6 g/dl (32.0-36.5); MONO # 0.6 10^3/uL (0.0-0.8); MONO % 7.6 % (2.0-8.0); NEUTROPHILS # 5.4 10^3/uL (1.5-8.5); NEUTROPHILS % 63.6 % (36.0-66.0); PLATELET COUNT, AUTOMATED 494 10^3/uL (150-450); RED BLOOD COUNT 4.03 10^6/uL (4.00-5.40); WHITE BLOOD COUNT 8.5 10^3/uL (4.0-10.0)
[2024-10-21 18:00] LABS: ALBUMIN 3.8 G/DL (3.2-5.2); BILIRUBIN,TOTAL 0.2 MG/DL (0.3-1.2); CALCIUM LEVEL 9.4 MG/DL (8.3-10.6); CREATININE FOR GFR 1.21 MG/DL (0.55-1.30); GLOMERULAR FILTRATION RATE 47.5 (>45); POTASSIUM SERUM 4.7 MMOL/L (3.5-5.1); THYROID STIMULATING HORMONE 1.541 uIU/ML (0.55-4.78); TOTAL PROTEIN 7.7 G/DL (5.7-8.2)
== END ==
LOC: M LABWUC 16:16
PROVIDERS: ATTEND Nurse Practitioner
DX: C79.11 Secondary malignant neoplasm of bladder (principal); Z79.899 Other long term (current) drug therapy

== ENCOUNTER → 2024-11-02 | Outpatient (CLI) | payer MEDICARE, MEDICAID ==
[2024-11-02 16:33] LABS: BASO # 0.1 10^3/uL (0.0-0.2); EOS # 0.1 10^3/uL (0.0-0.5); EOS % 0.7 % (0.0-3.0); HEMATOCRIT 38.9 % (36.0-47.0); HEMOGLOBIN 12.8 g/dl (12.0-15.5); LYMPH # 2.5 10^3/uL (1.5-5.0); LYMPH % 28.4 % (24.0-44.0); MEAN CORPUSCULAR HEMOGLOBIN 31.6 pg (27.0-33.0); MEAN CORPUSCULAR HGB CONC 32.9 g/dl (32.0-36.5); MONO # 0.9 10^3/uL (0.0-0.8); MONO % 9.6 % (2.0-8.0); NEUTROPHILS # 5.3 10^3/uL (1.5-8.5); NEUTROPHILS % 60.1 % (36.0-66.0); PLATELET COUNT, AUTOMATED 483 10^3/uL (150-450); RED BLOOD COUNT 4.05 10^6/uL (4.00-5.40); WHITE BLOOD COUNT 8.9 10^3/uL (4.0-10.0)
[2024-11-02 16:58] LABS: THYROID STIMULATING HORMONE 1.131 uIU/ML (0.55-4.78)
[2024-11-02 16:59] LABS: BILIRUBIN,TOTAL 0.3 MG/DL (0.3-1.2); CALCIUM LEVEL 9.7 MG/DL (8.3-10.6); CREATININE FOR GFR 1.26 MG/DL (0.55-1.30); FREE T4 1.05 NG/DL (0.89-1.76); GLOMERULAR FILTRATION RATE 45.4 (>45); POTASSIUM SERUM 4.4 MMOL/L (3.5-5.1); TOTAL PROTEIN 7.6 G/DL (5.7-8.2)
== END ==
LOC: M WUC 13:42
PROVIDERS: ATTEND Nurse Practitioner
DX: C67.9 Malignant neoplasm of bladder, unspecified (principal); Z79.899 Other long term (current) drug therapy

== ENCOUNTER → 2024-11-17 | Outpatient (CLI) | payer MEDICARE, MEDICAID ==
[2024-11-17 15:58] LABS: HEMATOCRIT 37.1 % (36.0-47.0); HEMOGLOBIN 11.9 g/dl (12.0-15.5); MEAN CORPUSCULAR HEMOGLOBIN 30.7 pg (27.0-33.0); MEAN CORPUSCULAR HGB CONC 32.1 g/dl (32.0-36.5); MEAN CORPUSCULAR VOLUME 95.6 fl (80.0-96.0); PLATELET COUNT, AUTOMATED 424 10^3/uL (150-450); RED BLOOD COUNT 3.88 10^6/uL (4.00-5.40); WHITE BLOOD COUNT 8.4 10^3/uL (4.0-10.0)
[2024-11-17 16:44] LABS: ALBUMIN 3.7 G/DL (3.2-5.2); BILIRUBIN,TOTAL 0.3 MG/DL (0.3-1.2); CALCIUM LEVEL 8.9 MG/DL (8.3-10.6); CREATININE FOR GFR 1.19 MG/DL (0.55-1.30); GLOMERULAR FILTRATION RATE 48.5 (>45); POTASSIUM SERUM 5.2 MMOL/L (3.5-5.1); TOTAL PROTEIN 7.2 G/DL (5.7-8.2)
[2024-11-17 16:48] LABS: FREE T4 0.96 NG/DL (0.89-1.76); THYROID STIMULATING HORMONE 1.236 uIU/ML (0.55-4.78)
== END ==
LOC: M WUC 10:55
PROVIDERS: ATTEND Nurse Practitioner
DX: C67.9 Malignant neoplasm of bladder, unspecified (principal); Z79.69 Long term (current) use of other immunomodulators and immunosuppressants; Z79.899 Other long term (current) drug therapy

== ENCOUNTER → 2024-12-01 | Outpatient (REF) | payer MEDICARE, MEDICAID ==
[2024-12-01 13:56] LABS: BASO # 0.1 10^3/uL (0.0-0.2); BASO % 1.5 % (0.0-1.0); EOS # 0.1 10^3/uL (0.0-0.5); EOS % 1.9 % (0.0-3.0); HEMATOCRIT 40.3 % (36.0-47.0); HEMOGLOBIN 12.7 g/dl (12.0-15.5); LYMPH # 1.9 10^3/uL (1.5-5.0); LYMPH % 28.9 % (24.0-44.0); MEAN CORPUSCULAR HEMOGLOBIN 30.1 pg (27.0-33.0); MEAN CORPUSCULAR HGB CONC 31.5 g/dl (32.0-36.5); MEAN CORPUSCULAR VOLUME 95.5 fl (80.0-96.0); MONO # 0.7 10^3/uL (0.0-0.8); MONO % 10.6 % (2.0-8.0); NEUTROPHILS # 3.8 10^3/uL (1.5-8.5); PLATELET COUNT, AUTOMATED 421 10^3/uL (150-450); RED BLOOD COUNT 4.22 10^6/uL (4.00-5.40); WHITE BLOOD COUNT 6.7 10^3/uL (4.0-10.0)
[2024-12-01 14:27] LABS: ALBUMIN 3.8 G/DL (3.2-5.2); BILIRUBIN,TOTAL 0.3 MG/DL (0.3-1.2); CALCIUM LEVEL 9.1 MG/DL (8.3-10.6); CREATININE FOR GFR 1.18 MG/DL (0.55-1.30); GLOMERULAR FILTRATION RATE 48.9 (>45); TOTAL PROTEIN 7.3 G/DL (5.7-8.2)
[2024-12-01 14:28] LABS: THYROID STIMULATING HORMONE 1.593 uIU/ML (0.55-4.78)
[2024-12-01 14:29] LABS: FREE T4 1.04 NG/DL (0.89-1.76)
== END ==
LOC: M LABWUC 13:17
PROVIDERS: ATTEND Nurse Practitioner
DX: C79.11 Secondary malignant neoplasm of bladder (principal); D05.11 Intraductal carcinoma in situ of right breast

== ENCOUNTER → 2024-12-14 | Outpatient (CLI) | payer MEDICARE, MEDICAID ==
[2024-12-14 17:13] LABS: BASO # 0.1 10^3/uL (0.0-0.2); EOS # 0.1 10^3/uL (0.0-0.5); EOS % 0.7 % (0.0-3.0); HEMATOCRIT 40.2 % (36.0-47.0); LYMPH % 23.2 % (24.0-44.0); MEAN CORPUSCULAR HGB CONC 32.3 g/dl (32.0-36.5); MEAN CORPUSCULAR VOLUME 95.9 fl (80.0-96.0); MONO # 0.6 10^3/uL (0.0-0.8); MONO % 7.3 % (2.0-8.0); NEUTROPHILS # 5.9 10^3/uL (1.5-8.5); NEUTROPHILS % 67.5 % (36.0-66.0); PLATELET COUNT, AUTOMATED 455 10^3/uL (150-450); RED BLOOD COUNT 4.19 10^6/uL (4.00-5.40); WHITE BLOOD COUNT 8.7 10^3/uL (4.0-10.0)
[2024-12-14 17:36] LABS: HEMOGLOBIN A1c 5.4 % (4.0-6.0)
[2024-12-14 17:44] LABS: URIC ACID 4.8 MG/DL (3.1-7.8)
[2024-12-14 17:46] LABS: ALBUMIN 4.1 G/DL (3.2-5.2); BILIRUBIN,TOTAL 0.4 MG/DL (0.3-1.2); CALCIUM LEVEL 9.3 MG/DL (8.3-10.6); CHOLESTEROL RISK RATIO 4.63 (<5); CREATININE FOR GFR 1.19 MG/DL (0.55-1.30); FERRITIN 34.7 NG/ML (7.3-270.7); FREE T4 1.02 NG/DL (0.89-1.76); GLOMERULAR FILTRATION RATE 48.5 (>45); HDL CHOLESTEROL 67.7 MG/DL (>40); LDL CHOLESTEROL 202.1 MG/DL (<100); NON-HDL-C 246.3 MG/DL; PERCENT SATURATION 21.1 % (13.2-45.0); POTASSIUM SERUM 4.7 MMOL/L (3.5-5.1); THYROID STIMULATING HORMONE 1.48 uIU/ML (0.55-4.78); TOTAL PROTEIN 7.7 G/DL (5.7-8.2)
== END ==
LOC: M WUC 11:02
PROVIDERS: ATTEND Physician Assistant
DX: E78.2 Mixed hyperlipidemia (principal); N18.4 Chronic kidney disease, stage 4 (severe); Z13.29 Encounter for screening for other suspected endocrine disorder; Z12.11 Encounter for screening for malignant neoplasm of colon; C67.8 Malignant neoplasm of overlapping sites of bladder

== ENCOUNTER → 2024-12-14 | Outpatient (CLI) | payer MEDICARE, MEDICAID ==
[2024-12-14 17:13] LABS: HEMATOCRIT 40.4 % (36.0-47.0); HEMOGLOBIN 13.1 g/dl (12.0-15.5); MEAN CORPUSCULAR HEMOGLOBIN 30.8 pg (27.0-33.0); MEAN CORPUSCULAR HGB CONC 32.4 g/dl (32.0-36.5); MEAN CORPUSCULAR VOLUME 94.8 fl (80.0-96.0); PLATELET COUNT, AUTOMATED 453 10^3/uL (150-450); RED BLOOD COUNT 4.26 10^6/uL (4.00-5.40); WHITE BLOOD COUNT 8.8 10^3/uL (4.0-10.0)
[2024-12-14 17:41] LABS: FREE T4 0.98 NG/DL (0.89-1.76); THYROID STIMULATING HORMONE 1.565 uIU/ML (0.55-4.78)
[2024-12-14 17:42] LABS: ALBUMIN 4.2 G/DL (3.2-5.2); BILIRUBIN,TOTAL 0.4 MG/DL (0.3-1.2); CALCIUM LEVEL 9.4 MG/DL (8.3-10.6); CREATININE FOR GFR 1.2 MG/DL (0.55-1.30); POTASSIUM SERUM 4.7 MMOL/L (3.5-5.1); TOTAL PROTEIN 7.8 G/DL (5.7-8.2)
== END ==
LOC: M WUC 11:05
PROVIDERS: ATTEND Nurse Practitioner
DX: C67.8 Malignant neoplasm of overlapping sites of bladder (principal); N18.31 Chronic kidney disease, stage 3a

== ENCOUNTER → 2024-12-30 | Outpatient (CLI) | payer MEDICARE, MEDICAID ==
[2024-12-30 14:20] LABS: HEMATOCRIT 38.6 % (36.0-47.0); HEMOGLOBIN 12.4 g/dl (12.0-15.5); MEAN CORPUSCULAR HEMOGLOBIN 30.8 pg (27.0-33.0); MEAN CORPUSCULAR HGB CONC 32.1 g/dl (32.0-36.5); MEAN CORPUSCULAR VOLUME 95.8 fl (80.0-96.0); PLATELET COUNT, AUTOMATED 403 10^3/uL (150-450); RED BLOOD COUNT 4.03 10^6/uL (4.00-5.40); WHITE BLOOD COUNT 7.4 10^3/uL (4.0-10.0)
[2024-12-30 14:38] LABS: BILIRUBIN,TOTAL 0.3 MG/DL (0.3-1.2); CALCIUM LEVEL 9.2 MG/DL (8.3-10.6); CREATININE FOR GFR 1.16 MG/DL (0.55-1.30); GLOMERULAR FILTRATION RATE 49.9 (>45); POTASSIUM SERUM 4.8 MMOL/L (3.5-5.1); TOTAL PROTEIN 7.6 G/DL (5.7-8.2)
[2024-12-30 14:41] LABS: THYROID STIMULATING HORMONE 1.457 uIU/ML (0.55-4.78)
[2024-12-30 14:52] LABS: BASO # 0.1 10^3/uL (0.0-0.2); BASO % 0.9 % (0.0-1.0); EOS # 0.1 10^3/uL (0.0-0.5); EOS % 0.7 % (0.0-3.0); LYMPH # 1.9 10^3/uL (1.5-5.0); LYMPH % 25.6 % (24.0-44.0); MONO # 0.7 10^3/uL (0.0-0.8); MONO % 9.5 % (2.0-8.0); NEUTROPHILS # 4.7 10^3/uL (1.5-8.5)
== END ==
LOC: M WUC 11:13
PROVIDERS: ATTEND Nurse Practitioner
DX: C67.9 Malignant neoplasm of bladder, unspecified (principal)

== ENCOUNTER → 2024-12-30 | Outpatient (CLI) | payer MEDICARE, MEDICAID | LOC: M RAD 10:50 | DX: C67.9 Malignant neoplasm of bladder, unspecified (principal); K76.89 Other specified diseases of liver; N28.1 Cyst of kidney, acquired; Z85.3 Personal history of malignant neoplasm of breast; E78.00 Pure hypercholesterolemia, unspecified; J43.2 Centrilobular emphysema; Z95.828 Presence of other vascular implants and grafts; I25.10 Atherosclerotic heart disease of native coronary artery without angina pectoris ==

== ENCOUNTER → 2025-01-12 | Outpatient (REF) | payer MEDICARE, MEDICAID, BC ==
[2025-01-12 12:39] LABS: BASO # 0.1 10^3/uL (0.0-0.2); BASO % 1.1 % (0.0-1.0); EOS # 0.1 10^3/uL (0.0-0.5); EOS % 1.5 % (0.0-3.0); HEMATOCRIT 36.6 % (36.0-47.0); HEMOGLOBIN 11.9 g/dl (12.0-15.5); LYMPH # 1.9 10^3/uL (1.5-5.0); LYMPH % 23.5 % (24.0-44.0); MEAN CORPUSCULAR HEMOGLOBIN 31.2 pg (27.0-33.0); MEAN CORPUSCULAR HGB CONC 32.5 g/dl (32.0-36.5); MEAN CORPUSCULAR VOLUME 96.1 fl (80.0-96.0); MONO # 0.8 10^3/uL (0.0-0.8); MONO % 9.8 % (2.0-8.0); NEUTROPHILS # 5.1 10^3/uL (1.5-8.5); NEUTROPHILS % 63.7 % (36.0-66.0); PLATELET COUNT, AUTOMATED 420 10^3/uL (150-450); RED BLOOD COUNT 3.81 10^6/uL (4.00-5.40); WHITE BLOOD COUNT 8.1 10^3/uL (4.0-10.0)
[2025-01-12 13:09] LABS: ALBUMIN 3.8 G/DL (3.2-5.2); BILIRUBIN,TOTAL 0.3 MG/DL (0.3-1.2); CALCIUM LEVEL 8.9 MG/DL (8.3-10.6); CREATININE FOR GFR 1.22 MG/DL (0.55-1.30); GLOMERULAR FILTRATION RATE 49.3 (>45); POTASSIUM SERUM 4.8 MMOL/L (3.5-5.1)
[2025-01-12 13:11] LABS: THYROID STIMULATING HORMONE 1.265 uIU/ML (0.55-4.78)
[2025-01-12 13:12] LABS: FREE T4 0.96 NG/DL (0.89-1.76)
== END ==
LOC: M LABWUC 11:48
PROVIDERS: ATTEND Nurse Practitioner
DX: C79.11 Secondary malignant neoplasm of bladder (principal); Z79.899 Other long term (current) drug therapy

== ENCOUNTER → 2025-01-26 | Outpatient (REF) | payer MEDICARE, MEDICAID, BC ==
[2025-01-26 14:28] LABS: BASO # 0.1 10^3/uL (0.0-0.2); BASO % 1.1 % (0.0-1.0); EOS # 0.1 10^3/uL (0.0-0.5); EOS % 1.4 % (0.0-3.0); HEMATOCRIT 39.9 % (36.0-47.0); HEMOGLOBIN 12.9 g/dl (12.0-15.5); LYMPH # 1.8 10^3/uL (1.5-5.0); LYMPH % 21.1 % (24.0-44.0); MEAN CORPUSCULAR HEMOGLOBIN 31.4 pg (27.0-33.0); MEAN CORPUSCULAR HGB CONC 32.3 g/dl (32.0-36.5); MEAN CORPUSCULAR VOLUME 97.1 fl (80.0-96.0); NEUTROPHILS # 5.7 10^3/uL (1.5-8.5); NEUTROPHILS % 65.1 % (36.0-66.0); PLATELET COUNT, AUTOMATED 443 10^3/uL (150-450); RED BLOOD COUNT 4.11 10^6/uL (4.00-5.40); WHITE BLOOD COUNT 8.7 10^3/uL (4.0-10.0)
[2025-01-26 14:36] LABS: THYROID STIMULATING HORMONE 1.425 uIU/ML (0.55-4.78)
[2025-01-26 14:40] LABS: BILIRUBIN,TOTAL 0.3 MG/DL (0.3-1.2); CALCIUM LEVEL 9.5 MG/DL (8.3-10.6); CREATININE FOR GFR 1.22 MG/DL (0.55-1.30); FREE T4 1.03 NG/DL (0.89-1.76); GLOMERULAR FILTRATION RATE 49.3 (>45); POTASSIUM SERUM 4.9 MMOL/L (3.5-5.1); TOTAL PROTEIN 7.3 G/DL (5.7-8.2)
== END ==
LOC: M LABWUC 12:11
PROVIDERS: ATTEND Nurse Practitioner
DX: C79.11 Secondary malignant neoplasm of bladder (principal); Z79.899 Other long term (current) drug therapy

== ENCOUNTER 2025-02-01 07:00 | Day surgery (SDC) | payer MEDICARE, MEDICAID ==
[~2025-02-01] VITALS: Ht 157.5 cm; Wt 61.7 kg
[2025-02-01] MEDS ORDERED: propofoL 200 MG/20 ML VIAL As Ordered ONE (07:07)
[2025-02-01] MEDS ORDERED: LIDOCAINE 2% 100MG/5ML SDV (FOR ANES.) As Ordered ONE (07:07)
[2025-02-01 08:09] VITALS: TEMP 97.3
[2025-02-01 08:25] VITALS: BP 120/68; O2SAT 99
== END 2025-02-01 08:28 | disposition home or self-care (01) ==
LOC: M OPP 07:00
PROVIDERS: ATTEND Surgery
DX: Z12.11 Encounter for screening for malignant neoplasm of colon (principal); Z79.899 Other long term (current) drug therapy

== ENCOUNTER → 2025-02-09 | Outpatient (CLI) | payer MEDICARE, MEDICAID ==
[2025-02-09 13:14] LABS: HEMATOCRIT 38.5 % (36.0-47.0); HEMOGLOBIN 12.2 g/dl (12.0-15.5); MEAN CORPUSCULAR HEMOGLOBIN 30.3 pg (27.0-33.0); MEAN CORPUSCULAR HGB CONC 31.7 g/dl (32.0-36.5); MEAN CORPUSCULAR VOLUME 95.8 fl (80.0-96.0); PLATELET COUNT, AUTOMATED 422 10^3/uL (150-450); RED BLOOD COUNT 4.02 10^6/uL (4.00-5.40); WHITE BLOOD COUNT 6.8 10^3/uL (4.0-10.0)
[2025-02-09 13:34] LABS: FREE T4 0.97 NG/DL (0.89-1.76); THYROID STIMULATING HORMONE 1.453 uIU/ML (0.55-4.78)
[2025-02-09 13:35] LABS: BILIRUBIN,TOTAL 0.3 MG/DL (0.3-1.2); CALCIUM LEVEL 9.2 MG/DL (8.3-10.6); CREATININE FOR GFR 1.16 MG/DL (0.55-1.30); GLOMERULAR FILTRATION RATE 52.3 (>45); POTASSIUM SERUM 5.1 MMOL/L (3.5-5.1); TOTAL PROTEIN 7.2 G/DL (5.7-8.2)
[2025-02-10 10:39] LABS: BASO % 1.1 % (0.0-1.0); EOS % 1.1 % (0.0-3.0); LYMPH % 24.8 % (24.0-44.0); MONO % 11.5 % (2.0-8.0); NEUTROPHILS # 4.5 10^3/uL (1.5-8.5); NEUTROPHILS % 61.2 % (36.0-66.0)
[2025-02-10 10:40] LABS: BASO # 0.1 10^3/uL (0.0-0.2); EOS # 0.1 10^3/uL (0.0-0.5); LYMPH # 1.8 10^3/uL (1.5-5.0); MONO # 0.8 10^3/uL (0.0-0.8)
== END ==
LOC: M WUC 10:13
PROVIDERS: ATTEND Nurse Practitioner
DX: C79.11 Secondary malignant neoplasm of bladder (principal); Z79.899 Other long term (current) drug therapy

== ENCOUNTER → 2025-02-22 | Outpatient (CLI) | payer MEDICARE, MEDICAID ==
[2025-02-22 12:54] LABS: HEMATOCRIT 38.1 % (36.0-47.0); HEMOGLOBIN 12.4 g/dl (12.0-15.5); MEAN CORPUSCULAR HEMOGLOBIN 31.3 pg (27.0-33.0); MEAN CORPUSCULAR HGB CONC 32.5 g/dl (32.0-36.5); MEAN CORPUSCULAR VOLUME 96.2 fl (80.0-96.0); PLATELET COUNT, AUTOMATED 408 10^3/uL (150-450); RED BLOOD COUNT 3.96 10^6/uL (4.00-5.40); WHITE BLOOD COUNT 7.1 10^3/uL (4.0-10.0)
[2025-02-22 12:56] LABS: FREE T4 0.98 NG/DL (0.89-1.76)
[2025-02-22 12:57] LABS: BILIRUBIN,TOTAL 0.3 MG/DL (0.3-1.2); CALCIUM LEVEL 9.4 MG/DL (8.3-10.6); CREATININE FOR GFR 1.18 MG/DL (0.55-1.30); GLOMERULAR FILTRATION RATE 51.3 (>45); POTASSIUM SERUM 4.5 MMOL/L (3.5-5.1); TOTAL PROTEIN 7.2 G/DL (5.7-8.2)
[2025-02-22 12:58] LABS: THYROID STIMULATING HORMONE 1.596 uIU/ML (0.55-4.78)
== END ==
LOC: M WUC 09:36
PROVIDERS: ATTEND Nurse Practitioner
DX: C79.11 Secondary malignant neoplasm of bladder (principal); Z79.899 Other long term (current) drug therapy

== ENCOUNTER → 2025-04-06 | Outpatient (CLI) | payer MEDICARE, MEDICAID ==
[~2025-04-06] MED LIST changes: -PRAV40TA2 PO; +PRAV40TA85 PO
[2025-04-06 12:25] LABS: BASO # 0.1 10^3/uL (0.0-0.2); BASO % 1.1 % (0.0-1.0); EOS # 0.1 10^3/uL (0.0-0.5); EOS % 1.1 % (0.0-3.0); LYMPH # 1.7 10^3/uL (1.5-5.0); LYMPH % 23.8 % (24.0-44.0); MONO # 0.8 10^3/uL (0.0-0.8); MONO % 11.6 % (2.0-8.0); NEUTROPHILS # 4.4 10^3/uL (1.5-8.5); NEUTROPHILS % 62.3 % (36.0-66.0); PLATELET COUNT, AUTOMATED 409 10^3/uL (150-450)
[2025-04-06 13:03] LABS: ALT/SGPT 12.0 U/L (7.0-40); AST/SGOT 21.0 U/L (<34); CALCIUM LEVEL 9.1 MG/DL (8.3-10.6); CARBON DIOXIDE LEVEL 22.0 MMOL/L (20-31); CHLORIDE LEVEL 109.0 MMOL/L (98-107); CREATININE FOR GFR 1.2 MG/DL (0.55-1.30); FREE T4 1.0 NG/DL (0.89-1.76); GLOMERULAR FILTRATION RATE 49.9 (>45); POTASSIUM SERUM 4.9 MMOL/L (3.5-5.1); SODIUM LEVEL 141.0 MMOL/L (136-145)
== END ==
LOC: M WUC 09:31
PROVIDERS: ATTEND Nurse Practitioner
DX: C67.9 Malignant neoplasm of bladder, unspecified (principal); Z79.899 Other long term (current) drug therapy

== ENCOUNTER → 2025-04-21 | Outpatient (CLI) | payer MEDICARE, MEDICAID ==
[2025-04-21 14:22] LABS: BASO # 0.1 10^3/uL (0.0-0.2); BASO % 1.1 % (0.0-1.0); EOS # 0.1 10^3/uL (0.0-0.5); EOS % 1.5 % (0.0-3.0); LYMPH # 1.7 10^3/uL (1.5-5.0); LYMPH % 23.1 % (24.0-44.0); MONO # 0.9 10^3/uL (0.0-0.8); MONO % 12.0 % (2.0-8.0); NEUTROPHILS # 4.5 10^3/uL (1.5-8.5); NEUTROPHILS % 62.0 % (36.0-66.0); PLATELET COUNT, AUTOMATED 386 10^3/uL (150-450)
[2025-04-21 14:35] LABS: ALT/SGPT 16.0 U/L (7.0-40); AST/SGOT 23.0 U/L (<34); CALCIUM LEVEL 9.3 MG/DL (8.3-10.6); CARBON DIOXIDE LEVEL 25.0 MMOL/L (20-31); CHLORIDE LEVEL 108.0 MMOL/L (98-107); CREATININE FOR GFR 1.34 MG/DL (0.55-1.30); GLOMERULAR FILTRATION RATE 43.7 (>45); POTASSIUM SERUM 4.6 MMOL/L (3.5-5.1); SODIUM LEVEL 141.0 MMOL/L (136-145)
[2025-04-21 14:36] LABS: FREE T4 1.06 NG/DL (0.89-1.76)
== END ==
LOC: M WUC 10:00
PROVIDERS: ATTEND Nurse Practitioner
DX: C67.9 Malignant neoplasm of bladder, unspecified (principal); Z79.899 Other long term (current) drug therapy

== ENCOUNTER → 2025-05-05 | Outpatient (CLI) | payer MEDICARE, MEDICAID | LOC: M PLAIMG 08:31 | PROVIDERS: ATTEND Internal Medicine Medical Oncology | DX: C67.9 Malignant neoplasm of bladder, unspecified (principal); K76.89 Other specified diseases of liver; N28.1 Cyst of kidney, acquired; Z79.899 Other long term (current) drug therapy ==

== ENCOUNTER → 2025-05-05 | Outpatient (CLI) | payer MEDICARE, MEDICAID ==
[2025-05-05 12:24] LABS: BASO # 0.1 10^3/uL (0.0-0.2); BASO % 1.2 % (0.0-1.0); EOS # 0.1 10^3/uL (0.0-0.5); EOS % 1.6 % (0.0-3.0); LYMPH # 1.8 10^3/uL (1.5-5.0); LYMPH % 25.4 % (24.0-44.0); MONO # 0.7 10^3/uL (0.0-0.8); MONO % 10.1 % (2.0-8.0); NEUTROPHILS # 4.2 10^3/uL (1.5-8.5); NEUTROPHILS % 61.3 % (36.0-66.0); PLATELET COUNT, AUTOMATED 399 10^3/uL (150-450)
[2025-05-05 12:51] LABS: ALT/SGPT 18.0 U/L (7.0-40); AST/SGOT 24.0 U/L (<34); CALCIUM LEVEL 9.4 MG/DL (8.3-10.6); CARBON DIOXIDE LEVEL 26.0 MMOL/L (20-31); CHLORIDE LEVEL 104.0 MMOL/L (98-107); CREATININE FOR GFR 1.26 MG/DL (0.55-1.30); GLOMERULAR FILTRATION RATE 47.1 (>45); POTASSIUM SERUM 4.6 MMOL/L (3.5-5.1); SODIUM LEVEL 141.0 MMOL/L (136-145)
[2025-05-05 12:52] LABS: FREE T4 1.01 NG/DL (0.89-1.76)
== END ==
LOC: M WUC 09:01
PROVIDERS: ATTEND Nurse Practitioner
DX: C67.9 Malignant neoplasm of bladder, unspecified (principal)

== ENCOUNTER → 2025-05-19 | Outpatient (REF) | payer MEDICARE, MEDICAID ==
[2025-05-19 14:11] LABS: BASO # 0.1 10^3/uL (0.0-0.2); BASO % 1.4 % (0.0-1.0); EOS # 0.1 10^3/uL (0.0-0.5); EOS % 1.3 % (0.0-3.0); LYMPH # 1.7 10^3/uL (1.5-5.0); LYMPH % 23.9 % (24.0-44.0); MONO # 0.8 10^3/uL (0.0-0.8); MONO % 11.0 % (2.0-8.0); NEUTROPHILS # 4.4 10^3/uL (1.5-8.5); NEUTROPHILS % 62.1 % (36.0-66.0); PLATELET COUNT, AUTOMATED 386 10^3/uL (150-450)
[2025-05-19 14:16] LABS: FREE T4 1.01 NG/DL (0.89-1.76)
[2025-05-19 14:17] LABS: ALT/SGPT 13.0 U/L (7.0-40); AST/SGOT 20.0 U/L (<34); CALCIUM LEVEL 9.4 MG/DL (8.3-10.6); CARBON DIOXIDE LEVEL 25.0 MMOL/L (20-31); CHLORIDE LEVEL 107.0 MMOL/L (98-107); CREATININE FOR GFR 1.27 MG/DL (0.55-1.30); GLOMERULAR FILTRATION RATE 46.6 (>45); POTASSIUM SERUM 4.9 MMOL/L (3.5-5.1); SODIUM LEVEL 140.0 MMOL/L (136-145)
== END ==
LOC: M LABWUC 12:01
PROVIDERS: ATTEND Nurse Practitioner
DX: C67.9 Malignant neoplasm of bladder, unspecified (principal); Z79.899 Other long term (current) drug therapy

== ENCOUNTER → 2025-06-02 | Outpatient (CLI) | payer MEDICARE, MEDICAID ==
[2025-06-02 13:56] LABS: BASO # 0.1 10^3/uL (0.0-0.2); BASO % 1.3 % (0.0-1.0); EOS # 0.1 10^3/uL (0.0-0.5); EOS % 2.0 % (0.0-3.0); LYMPH # 1.4 10^3/uL (1.5-5.0); LYMPH % 24.2 % (24.0-44.0); MONO # 0.7 10^3/uL (0.0-0.8); MONO % 12.4 % (2.0-8.0); NEUTROPHILS # 3.4 10^3/uL (1.5-8.5); NEUTROPHILS % 59.9 % (36.0-66.0); PLATELET COUNT, AUTOMATED 404 10^3/uL (150-450)
[2025-06-02 14:03] LABS: ALT/SGPT 15.0 U/L (7.0-40); AST/SGOT 21.0 U/L (<34); CALCIUM LEVEL 9.4 MG/DL (8.3-10.6); CARBON DIOXIDE LEVEL 25.0 MMOL/L (20-31); CHLORIDE LEVEL 110.0 MMOL/L (98-107); CREATININE FOR GFR 1.28 MG/DL (0.55-1.30); GLOMERULAR FILTRATION RATE 46.2 (>45); POTASSIUM SERUM 4.7 MMOL/L (3.5-5.1); SODIUM LEVEL 142.0 MMOL/L (136-145)
[2025-06-02 14:05] LABS: FREE T4 1.07 NG/DL (0.89-1.76)
== END ==
LOC: M WUC 09:00
PROVIDERS: ATTEND Internal Medicine Medical Oncology
DX: C67.9 Malignant neoplasm of bladder, unspecified (principal); E07.9 Disorder of thyroid, unspecified

== ENCOUNTER → 2025-06-15 | Outpatient (CLI) | payer MEDICARE, MEDICAID ==
[2025-06-15 12:20] LABS: BASO # 0.1 10^3/uL (0.0-0.2); BASO % 1.1 % (0.0-1.0); EOS # 0.1 10^3/uL (0.0-0.5); EOS % 1.1 % (0.0-3.0); LYMPH # 1.5 10^3/uL (1.5-5.0); LYMPH % 23.3 % (24.0-44.0); MONO # 0.7 10^3/uL (0.0-0.8); MONO % 10.7 % (2.0-8.0); NEUTROPHILS # 4.2 10^3/uL (1.5-8.5); NEUTROPHILS % 63.5 % (36.0-66.0); PLATELET COUNT, AUTOMATED 421 10^3/uL (150-450)
[2025-06-15 12:59] LABS: ALT/SGPT 18.0 U/L (7.0-40); AST/SGOT 20.0 U/L (<34); CALCIUM LEVEL 9.8 MG/DL (8.3-10.6); CARBON DIOXIDE LEVEL 26.0 MMOL/L (20-31); CHLORIDE LEVEL 108.0 MMOL/L (98-107); CREATININE FOR GFR 1.21 MG/DL (0.55-1.30); GLOMERULAR FILTRATION RATE 49.4 (>45); POTASSIUM SERUM 4.7 MMOL/L (3.5-5.1); SODIUM LEVEL 141.0 MMOL/L (136-145)
[2025-06-15 13:01] LABS: FREE T4 1.06 NG/DL (0.89-1.76)
== END ==
LOC: M WUC 09:41
PROVIDERS: ATTEND Nurse Practitioner
DX: C67.9 Malignant neoplasm of bladder, unspecified (principal); Z79.899 Other long term (current) drug therapy

== ENCOUNTER → 2025-07-14 | Outpatient (CLI) | payer MEDICARE, MEDICAID ==
[2025-07-14 15:15] LABS: BASO # 0.1 10^3/uL (0.0-0.2); BASO % 1.4 % (0.0-1.0); EOS # 0.1 10^3/uL (0.0-0.5); EOS % 1.7 % (0.0-3.0); LYMPH # 1.5 10^3/uL (1.5-5.0); LYMPH % 24.1 % (24.0-44.0); MONO # 0.8 10^3/uL (0.0-0.8); MONO % 11.7 % (2.0-8.0); NEUTROPHILS # 3.9 10^3/uL (1.5-8.5); NEUTROPHILS % 60.8 % (36.0-66.0); PLATELET COUNT, AUTOMATED 418 10^3/uL (150-450)
[2025-07-14 15:37] LABS: ALT/SGPT 16.0 U/L (7.0-40); AST/SGOT 21.0 U/L (<34); CALCIUM LEVEL 9.3 MG/DL (8.3-10.6); CARBON DIOXIDE LEVEL 25.0 MMOL/L (20-31); CHLORIDE LEVEL 107.0 MMOL/L (98-107); CREATININE FOR GFR 1.27 MG/DL (0.55-1.30); GLOMERULAR FILTRATION RATE 46.6 (>45); POTASSIUM SERUM 4.7 MMOL/L (3.5-5.1); SODIUM LEVEL 139.0 MMOL/L (136-145)
[2025-07-14 15:38] LABS: FREE T4 1.04 NG/DL (0.89-1.76)
== END ==
LOC: M WUC 09:49
PROVIDERS: ATTEND Nurse Practitioner
DX: C67.9 Malignant neoplasm of bladder, unspecified (principal); Z79.899 Other long term (current) drug therapy

== ENCOUNTER → 2025-07-27 | Outpatient (CLI) | payer MEDICARE, MEDICAID ==
[2025-07-27 12:29] LABS: BASO # 0.1 10^3/uL (0.0-0.2); BASO % 1.2 % (0.0-1.0); EOS # 0.1 10^3/uL (0.0-0.5); EOS % 1.2 % (0.0-3.0); LYMPH # 1.7 10^3/uL (1.5-5.0); LYMPH % 25.3 % (24.0-44.0); MONO # 0.8 10^3/uL (0.0-0.8); MONO % 11.4 % (2.0-8.0); NEUTROPHILS # 4.0 10^3/uL (1.5-8.5); NEUTROPHILS % 60.5 % (36.0-66.0); PLATELET COUNT, AUTOMATED 376 10^3/uL (150-450)
[2025-07-27 12:53] LABS: FREE T4 0.94 NG/DL (0.89-1.76)
[2025-07-27 13:00] LABS: ALT/SGPT 18.0 U/L (7.0-40); AST/SGOT 24.0 U/L (<34); CALCIUM LEVEL 9.4 MG/DL (8.3-10.6); CARBON DIOXIDE LEVEL 27.0 MMOL/L (20-31); CHLORIDE LEVEL 102.0 MMOL/L (98-107); CREATININE FOR GFR 1.19 MG/DL (0.55-1.30); GLOMERULAR FILTRATION RATE 50.4 (>45); POTASSIUM SERUM 4.8 MMOL/L (3.5-5.1); SODIUM LEVEL 140.0 MMOL/L (136-145)
== END ==
LOC: M WUC 10:29
PROVIDERS: ATTEND Nurse Practitioner
DX: C67.9 Malignant neoplasm of bladder, unspecified (principal); Z79.899 Other long term (current) drug therapy

== ENCOUNTER → 2025-08-11 | Outpatient (CLI) | payer MEDICARE, MEDICAID ==
[2025-08-11 12:13] LABS: BASO # 0.1 10^3/uL (0.0-0.2); BASO % 1.3 % (0.0-1.0); EOS # 0.1 10^3/uL (0.0-0.5); EOS % 1.5 % (0.0-3.0); LYMPH # 1.5 10^3/uL (1.5-5.0); LYMPH % 22.6 % (24.0-44.0); MONO # 0.8 10^3/uL (0.0-0.8); MONO % 11.7 % (2.0-8.0); NEUTROPHILS # 4.2 10^3/uL (1.5-8.5); NEUTROPHILS % 62.6 % (36.0-66.0); PLATELET COUNT, AUTOMATED 415 10^3/uL (150-450)
[2025-08-11 12:41] LABS: ALT/SGPT 17.0 U/L (7.0-40); AST/SGOT 25.0 U/L (<34); CALCIUM LEVEL 9.3 MG/DL (8.3-10.6); CARBON DIOXIDE LEVEL 25.0 MMOL/L (20-31); CHLORIDE LEVEL 109.0 MMOL/L (98-107); CREATININE FOR GFR 1.29 MG/DL (0.55-1.30); FREE T4 1.05 NG/DL (0.89-1.76); GLOMERULAR FILTRATION RATE 45.8 (>45); POTASSIUM SERUM 4.9 MMOL/L (3.5-5.1); SODIUM LEVEL 142.0 MMOL/L (136-145)
== END ==
LOC: M WUC 09:00
PROVIDERS: ATTEND Nurse Practitioner
DX: C67.9 Malignant neoplasm of bladder, unspecified (principal); Z79.899 Other long term (current) drug therapy

== ENCOUNTER → 2025-08-24 | Outpatient (CLI) | payer MEDICARE, MEDICAID ==
[2025-08-24 13:33] LABS: BASO # 0.1 10^3/uL (0.0-0.2); BASO % 1.0 % (0.0-1.0); EOS # 0.1 10^3/uL (0.0-0.5); EOS % 1.5 % (0.0-3.0); LYMPH # 1.8 10^3/uL (1.5-5.0); LYMPH % 25.7 % (24.0-44.0); MONO # 0.8 10^3/uL (0.0-0.8); MONO % 12.0 % (2.0-8.0); NEUTROPHILS # 4.1 10^3/uL (1.5-8.5); NEUTROPHILS % 59.5 % (36.0-66.0); PLATELET COUNT, AUTOMATED 397 10^3/uL (150-450)
[2025-08-24 13:36] LABS: ALT/SGPT 19.0 U/L (7.0-40); AST/SGOT 25.0 U/L (<34); CALCIUM LEVEL 9.0 MG/DL (8.3-10.6); CARBON DIOXIDE LEVEL 26.0 MMOL/L (20-31); CHLORIDE LEVEL 107.0 MMOL/L (98-107); CREATININE FOR GFR 1.22 MG/DL (0.55-1.30); GLOMERULAR FILTRATION RATE 48.9 (>45); MAGNESIUM LEVEL 2.1 MG/DL (1.8-2.4); POTASSIUM SERUM 4.8 MMOL/L (3.5-5.1); SODIUM LEVEL 140.0 MMOL/L (136-145)
[2025-08-24 13:37] LABS: FREE T4 1.08 NG/DL (0.89-1.76)
== END ==
LOC: M WUC 08:51
PROVIDERS: ATTEND Internal Medicine Medical Oncology
DX: C67.9 Malignant neoplasm of bladder, unspecified (principal); Z79.899 Other long term (current) drug therapy

== ENCOUNTER → 2025-09-07 | Outpatient (CLI) | payer MEDICARE, MEDICAID ==
[2025-09-07 17:27] LABS: BASO # 0.1 10^3/uL (0.0-0.2); BASO % 1.2 % (0.0-1.0); EOS # 0.1 10^3/uL (0.0-0.5); EOS % 0.8 % (0.0-3.0); LYMPH # 1.7 10^3/uL (1.5-5.0); LYMPH % 25.3 % (24.0-44.0); MONO # 0.6 10^3/uL (0.0-0.8); MONO % 9.8 % (2.0-8.0); NEUTROPHILS # 4.1 10^3/uL (1.5-8.5); NEUTROPHILS % 62.6 % (36.0-66.0); PLATELET COUNT, AUTOMATED 423 10^3/uL (150-450)
[2025-09-07 18:05] LABS: ALT/SGPT 17.0 U/L (7.0-40); AST/SGOT 24.0 U/L (<34); CALCIUM LEVEL 9.0 MG/DL (8.3-10.6); CARBON DIOXIDE LEVEL 24.0 MMOL/L (20-31); CHLORIDE LEVEL 107.0 MMOL/L (98-107); CREATININE FOR GFR 1.12 MG/DL (0.55-1.30); GLOMERULAR FILTRATION RATE 54.2 (>45); MAGNESIUM LEVEL 1.9 MG/DL (1.8-2.4); POTASSIUM SERUM 5.0 MMOL/L (3.5-5.1); SODIUM LEVEL 140.0 MMOL/L (136-145)
[2025-09-07 18:06] LABS: FREE T4 1.06 NG/DL (0.89-1.76)
== END ==
LOC: M WUC 12:55
PROVIDERS: ATTEND Internal Medicine Medical Oncology
DX: C67.9 Malignant neoplasm of bladder, unspecified (principal); N18.4 Chronic kidney disease, stage 4 (severe); E78.2 Mixed hyperlipidemia

== ENCOUNTER → 2025-09-07 | Outpatient (CLI) | payer MEDICARE, MEDICAID ==
[2025-09-07 18:01] LABS: ALT/SGPT 16.0 U/L (7.0-40); AST/SGOT 24.0 U/L (<34); CALCIUM LEVEL 9.4 MG/DL (8.3-10.6); CARBON DIOXIDE LEVEL 25.0 MMOL/L (20-31); CHLORIDE LEVEL 104.0 MMOL/L (98-107); CHOLESTEROL LEVEL 200.0 MG/DL (<200); CHOLESTEROL RISK RATIO 3.2 (<5); CREATININE FOR GFR 1.12 MG/DL (0.55-1.30); GLOMERULAR FILTRATION RATE 54.2 (>45); LDL CHOLESTEROL 110.8 MG/DL (<100); NON-HDL-C 137.6 MG/DL; POTASSIUM SERUM 4.8 MMOL/L (3.5-5.1); SODIUM LEVEL 138.0 MMOL/L (136-145); TRIGLYCERIDES LEVEL 134.0 MG/DL (<150)
== END ==
LOC: M WUC 12:53
PROVIDERS: ATTEND Physician Assistant
DX: E78.2 Mixed hyperlipidemia (principal); N18.4 Chronic kidney disease, stage 4 (severe)

== ENCOUNTER → 2025-09-22 | Outpatient (CLI) | payer MEDICARE, MEDICAID ==
[2025-09-22 12:30] LABS: BASO # 0.1 10^3/uL (0.0-0.2); BASO % 1.3 % (0.0-1.0); EOS # 0.1 10^3/uL (0.0-0.5); EOS % 1.2 % (0.0-3.0); LYMPH # 1.5 10^3/uL (1.5-5.0); LYMPH % 21.7 % (24.0-44.0); MONO # 0.8 10^3/uL (0.0-0.8); MONO % 12.2 % (2.0-8.0); NEUTROPHILS # 4.4 10^3/uL (1.5-8.5); NEUTROPHILS % 63.5 % (36.0-66.0); PLATELET COUNT, AUTOMATED 400 10^3/uL (150-450)
[2025-09-22 12:34] LABS: ALT/SGPT 16.0 U/L (7.0-40); AST/SGOT 25.0 U/L (<34); CALCIUM LEVEL 9.3 MG/DL (8.3-10.6); CARBON DIOXIDE LEVEL 28.0 MMOL/L (20-31); CHLORIDE LEVEL 106.0 MMOL/L (98-107); CREATININE FOR GFR 1.19 MG/DL (0.55-1.30); GLOMERULAR FILTRATION RATE 50.4 (>45); MAGNESIUM LEVEL 2.0 MG/DL (1.8-2.4); POTASSIUM SERUM 4.8 MMOL/L (3.5-5.1); SODIUM LEVEL 139.0 MMOL/L (136-145)
[2025-09-22 12:36] LABS: FREE T4 1.11 NG/DL (0.89-1.76)
== END ==
LOC: M WUC 10:00
PROVIDERS: ATTEND Internal Medicine Medical Oncology
DX: C67.9 Malignant neoplasm of bladder, unspecified (principal); Z79.899 Other long term (current) drug therapy

== ENCOUNTER → 2025-10-04 | Outpatient (REF) | payer MEDICARE, MEDICAID ==
[2025-10-04 15:47] LABS: BASO # 0.1 10^3/uL (0.0-0.2); BASO % 1.3 % (0.0-1.0); EOS # 0.1 10^3/uL (0.0-0.5); EOS % 0.8 % (0.0-3.0); LYMPH # 2.0 10^3/uL (1.5-5.0); LYMPH % 24.7 % (24.0-44.0); MONO # 0.6 10^3/uL (0.0-0.8); MONO % 7.9 % (2.0-8.0); NEUTROPHILS # 5.2 10^3/uL (1.5-8.5); NEUTROPHILS % 65.0 % (36.0-66.0); PLATELET COUNT, AUTOMATED 438 10^3/uL (150-450)
[2025-10-04 16:19] LABS: MAGNESIUM LEVEL 2.2 MG/DL (1.8-2.4)
[2025-10-04 16:20] LABS: C REACTIVE PROTEIN QUANTITATIV < 0.50 MG/DL (<1.0)
[2025-10-04 16:22] LABS: FREE T4 0.95 NG/DL (0.89-1.76)
== END ==
LOC: M LAB REF 12:46
PROVIDERS: ATTEND Internal Medicine Medical Oncology
DX: C67.9 Malignant neoplasm of bladder, unspecified (principal); Z79.899 Other long term (current) drug therapy